=== PATIENT | female | born 1950 | race Caucasian/White ===

== ENCOUNTER → 2017-01-25 | Outpatient (CLI) | payer MEDICARE, OTHER ==
--- NOTE | 2017-01-25 12:00 | MM ---
Reason for exam: follow-up at short interval from prior study. Last mammogram was performed 6 months ago. History: Patient is postmenopausal. Family history of breast cancer in maternal grandmother. Benign MG stereo VAD BX RT of the right breast, June 05, 2014. Benign left mammotome panel of the left breast, September 26, 2009. Benign left mammotome panel of the left breast, April 07, 2007. Benign left mammotome panel of the left breast, April 07, 2007. Benign left mammotome panel of the left breast, April 07, 2007. Benign excisional biopsy of the right breast, 1999. Took estrogen for 5 years beginning at age 35. Physical Findings: Nurse did not find any significant physical abnormalities on exam. MG 3D Diag Mammo W/Cad THALIA Bilateral CC and MLO view(s) were taken. Prior study comparison: July 26, 2016, bilateral MG 3d screening mammo w/cad. July 11, 2015, bilateral MG 3d diag mammo w/cad THALIA. There are scattered fibroglandular densities. Finding: There are increased grouped/clustered calcifications in the upper outer quadrant of the left breast. Previous mammotome biopsy in the right and left breast. Increase in number of calcifications since July 26, 2016 and July 11, 2015. These results were verbally communicated with the patient and result sheet given to the patient on 01/25/17. ASSESSMENT: Suspicious, BI-RAD 4 RECOMMENDATION: Stereotactic core biopsy of the left breast. Called Dr. Morgan with mammographic findings and has scheduled an appointment for the patient for 03/17/17 at 10:[address] Costa. Biopsy scheduled for 01/27/17 at 10:20. PRELIMINARY REPORT CALLED AND FAXED TO DR. COSTA ON 01/25/17 AT 300/TP.
== END | disposition home or self-care (01) ==
LOC: RADMAMWWP 10:05
PROVIDERS: ATTEND Obstetrics & Gynecology
DX: R92.8 Other abnormal and inconclusive findings on diagnostic imaging of breast (principal)
CPT/HCPCS: G0204; G0279

== ENCOUNTER → 2017-01-27 | Day surgery (SDC) | payer MEDICARE, OTHER ==
--- NOTE | 2017-01-27 12:26 | MM ---
EXAMINATION TYPE: MG stereo VAD BX LT DATE OF EXAM: 01/27/2017 COMPARISON: Previous mammogram 01/25/2017. CLINICAL HISTORY: Abnormal mammogram. TECHNIQUE: Stereotactic guided core biopsy of left breast. FINDINGS: The procedure of stereotactic guided core biopsy was explained to the patient. Benefits, alternatives, and risks were discussed. An informed consent was then obtained. The shortness pathway for biopsy was chosen. Shortness pathway was craniocaudad approach. I performed the localization, then surgeon, Dr. Tee performed the remainder of the procedure. A vacuum assisted biopsy gun was used to obtain multiple core samples. The patient tolerated the procedure well without any immediate complication. The patient was kept in the radiology department for short stay after the procedure and then discharged home in stable condition. Targeted calcifications are identified in specimen mammogram. Post biopsy mammogram shows the clip to appear in satisfactory position relative to the targeted area of concern on the preprocedure images. IMPRESSION: SUCCESSFUL, UNCOMPLICATED STEREOTACTIC GUIDED CORE BIOPSY OF AREA OF CONCERN IN THE left BREAST, FULL PATHOLOGY RESULTS TO FOLLOW. 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 Recommendation Follow up mammogram of the left breast in 6 months. CHIKIS
[2017-01-27 15:15] VITALS: BMI 25.7
[2017-01-27 15:24] VITALS: BP 172/99; PULSE 71; RESP 16; TEMP 98.1
== END ==
LOC: RADMAMWWP 09:39
PROVIDERS: ATTEND Surgery
DX: R92.8 Other abnormal and inconclusive findings on diagnostic imaging of breast (principal); N62 Hypertrophy of breast; N60.22 Fibroadenosis of left breast; N60.32 Fibrosclerosis of left breast; N64.89 Other specified disorders of breast
CPT/HCPCS: 88305; 19081; A4648; J2001

== ENCOUNTER → 2017-07-28 | Outpatient (CLI) | payer MEDICARE, OTHER ==
--- NOTE | 2017-07-28 11:22 | MM ---
Reason for exam: follow-up at short interval from prior study. Last mammogram was performed 6 months ago. History: Patient is postmenopausal. Family history of breast cancer in maternal grandmother. Benign MG stereo VAD BX LT of the left breast, January 27, 2017. Benign MG stereo VAD BX RT of the right breast, June 05, 2014. Benign left mammotome panel of the left breast, September 26, 2009. Benign left mammotome panel of the left breast, April 07, 2007. Benign left mammotome panel of the left breast, April 07, 2007. Benign left mammotome panel of the left breast, April 07, 2007. Benign excisional biopsy of the right breast, 1999. Took estrogen for 5 years beginning at age 35. Physical Findings: Nurse did not find any significant physical abnormalities on exam. MG 3D Diag Mammo W/Cad LT CC and MLO view(s) were taken of the left breast. Prior study comparison: January 25, 2017, bilateral MG 3d diag mammo w/cad THALIA. July 26, 2016, bilateral MG 3d screening mammo w/cad. The breast tissue is heterogeneously dense. This may lower the sensitivity of mammography. Stable benign calcifications. Previous mammotome biopsy in the left breast. No significant new findings when compared with previous films. These results were verbally communicated with the patient and result sheet given to the patient on 07/28/17. ASSESSMENT: Benign, BI-RAD 2 RECOMMENDATION: Routine screening mammogram of both breasts in 6 months. Back on schedule for January 2018.
== END | disposition home or self-care (01) ==
LOC: RADMAMWWP 10:37
PROVIDERS: ATTEND Surgery
DX: R92.8 Other abnormal and inconclusive findings on diagnostic imaging of breast (principal)
CPT/HCPCS: G0206; G0279

== ENCOUNTER 2017-08-18 08:21 | Inpatient (IN) | payer MEDICARE, OTHER ==
[2017-08-18] MEDS ORDERED: NITROGLYCERIN OINT 1 INCH/GM PACKET TOPICAL STA (08:45)
[2017-08-18] MEDS ORDERED: ASPIRIN 81 MG PO STA (08:45)
--- NOTE | 2017-08-18 08:49 | ED ---
General Adult HPI - General Chief complaint: Chest Pain Stated complaint: CHEST PAIN Time Seen by Provider: 08/18/17 08:29 Source: patient, family, RN notes reviewed Mode of arrival: wheelchair Limitations: no limitations - History of Present Illness Initial comments: Patient is a pleasant 67-year-old female presenting to the emergency department complaining of chest discomfort. Onset was yesterday. Symptoms have been somewhat steady. Not much improvement with nitroglycerin. has had some improvement with tramadol. Patient has pressure in her chest with radiation to the back of her arms. Patient does have some mild associated dyspnea and nausea and has had some sweating. Patient did have similar symptoms years ago with negative evaluation at that time. Discomfort is only mild at this point. - Related Data Home Medications Medication Instructions Recorded Confirmed Levothyroxine Sodium [Synthroid] 100 mcg PO DAILY 08/18/17 08/18/17 Lisinopril [Zestril] 5 mg PO DAILY 08/18/17 08/18/17 Allergies Allergy/AdvReac Type Severity Reaction Status Date / Time No Known Allergies Allergy Verified 08/18/17 08:40 Review of Systems ROS Statement: Those systems with pertinent positive or pertinent negative responses have been documented in the HPI. ROS Other: All systems not noted in ROS Statement are negative. Constitutional: Denies: fever Eyes: Denies: eye pain ENT: Denies: ear pain Respiratory: Reports: dyspnea Cardiovascular: Reports: chest pain Endocrine: Denies: fatigue Gastrointestinal: Denies: abdominal pain Genitourinary: Denies: dysuria Musculoskeletal: Denies: back pain Skin: Denies: rash Past Medical History Past Medical History: Hypertension, Thyroid Disorder Additional Past Medical History / Comment(s): left breast current yeast infection per pt History of Any Multi-Drug Resistant Organisms: None Reported Past Surgical History: Appendectomy, Hysterectomy, Tonsillectomy Additional Past Surgical History / Comment(s): right stereo benign 2013/left breast stereo benign 2009/2006 Past Anesthesia/Blood Transfusion Reactions: No Reported Reaction Past Psychological History: Depression Smoking Status: Current every day smoker Past Alcohol Use History: Rare Past Drug Use History: None Reported - Past Family History Mother Additional Family Medical History / Comment(s): Depression Father Family Medical History: Coronary Artery Disease (CAD) General Exam Limitations: no limitations General appearance: alert, in no apparent distress Head exam: Present: atraumatic Eye exam: Present: normal appearance, PERRL ENT exam: Present: normal oropharynx Neck exam: Present: normal inspection Respiratory exam: Present: normal lung sounds bilaterally Cardiovascular Exam: Present: regular rate, normal rhythm Expanded Peripheral pulses: 2+: Radial (R), Radial (L), Posterior Tibialis (R), Posterior Tibialis (L) GI/Abdominal exam: Present: soft. Absent: tenderness Extremities exam: Present: normal inspection. Absent: pedal edema, calf tenderness Neurological exam: Present: alert Psychiatric exam: Present: normal affect, normal mood Skin exam: Present: normal color Course Vital Signs 08/18/17 08/18/17 08/18/17 08:33 08:50 09:54 Temperature 97.5 F L 97.6 F Pulse Rate 63 60 Pulse Rate [ 58 L Right Pulse Oximetery] Respiratory 16 16 Rate Blood Pressure 135/76 119/70 O2 Sat by Pulse 97 99 Oximetry - Reevaluation(s) Reevaluation #1: 08/18/17 10:07 Patient was reevaluated and resting comfortably in bed. Discomfort 11/15. Dr. Barrera was paged and is currently in the [facility]. He is made aware. Dr. Nichols has been paged. 08/18/17 10:20 Case was discussed with Dr. Amin, who will admit. EKG Findings - EKG Comments: EKG Findings:: Sinus bradycardia 58. KS 150. QRS 86. QT 440. QTc 431. Normal axis. Inferior Q waves. Biphasic inferior T waves. Medical Decision Making - Lab Data Result diagrams: 08/18/17 08:46 08/18/17 08:46 Lab Results 08/18/17 08/18/17 08/18/17 Range/Units 08:46 08:46 08:46 WBC 6.1 (3.8-10.6) k/uL RBC 4.47 (3.80-5.40) m/uL Hgb 13.5 (11.4-16.0) gm/dL Hct 40.8 (34.0-46.0) % MCV 91.3 (80.0-100.0) fL MCH 30.3 (25.0-35.0) pg MCHC 33.1 (31.0-37.0) g/dL RDW 14.3 (11.5-15.5) % Plt Count 249 (150-450) k/uL Neutrophils % 72 % Lymphocytes % 21 % Monocytes % 6 % Eosinophils % 0 % Basophils % 0 % Neutrophils # 4.4 (1.3-7.7) k/uL Lymphocytes # 1.3 (1.0-4.8) k/uL Monocytes # 0.3 (0-1.0) k/uL Eosinophils # 0.0 (0-0.7) k/uL Basophils # 0.0 (0-0.2) k/uL PT (9.0-12.0) sec INR (<1.2) APTT (22.0-30.0) sec D-Dimer (<0.60) mg/L FEU Sodium 139 (137-145) mmol/L Potassium 4.4 (3.5-5.1) mmol/L Chloride 108 H (98-107) mmol/L Carbon Dioxide 23 (22-30) mmol/L Anion Gap 8 mmol/L BUN 20 H (7-17) mg/dL Creatinine 0.74 (0.52-1.04) mg/dL Est GFR (MDRD) Af Amer >60 (>60 ml/min/1.73 sqM) Est GFR (MDRD) Non-Af >60 (>60 ml/min/1.73 sqM) Glucose 118 H (74-99) mg/dL Calcium 8.9 (8.4-10.2) mg/dL Magnesium 1.9 (1.6-2.3) mg/dL Total Bilirubin 0.6 (0.2-1.3) mg/dL AST 259 H (14-36) U/L ALT 54 H (9-52) U/L Alkaline Phosphatase 92 (38-126) U/L Total Creatine Kinase 2223 H (30-135) U/L CK-MB (CK-2) 201.0 H* (0.0-2.4) ng/mL CK-MB (CK-2) Rel Index Troponin I 28.600 H* (0.000-0.034) ng/mL Total Protein 6.3 (6.3-8.2) g/dL Albumin 3.8 (3.5-5.0) g/dL 08/18/17 Range/Units 08:46 WBC (3.8-10.6) k/uL RBC (3.80-5.40) m/uL Hgb (11.4-16.0) gm/dL Hct (34.0-46.0) % MCV (80.0-100.0) fL MCH (25.0-35.0) pg MCHC (31.0-37.0) g/dL RDW (11.5-15.5) % Plt Count (150-450) k/uL Neutrophils % % Lymphocytes % % Monocytes % % Eosinophils % % Basophils % % Neutrophils # (1.3-7.7) k/uL Lymphocytes # (1.0-4.8) k/uL Monocytes # (0-1.0) k/uL Eosinophils # (0-0.7) k/uL Basophils # (0-0.2) k/uL PT 9.4 (9.0-12.0) sec INR 0.9 (<1.2) APTT 22.8 (22.0-30.0) sec D-Dimer 0.53 (<0.60) mg/L FEU Sodium (137-145) mmol/L Potassium (3.5-5.1) mmol/L Chloride (98-107) mmol/L Carbon Dioxide (22-30) mmol/L Anion Gap mmol/L BUN (7-17) mg/dL Creatinine (0.52-1.04) mg/dL Est GFR (MDRD) Af Amer (>60 ml/min/1.73 sqM) Est GFR (MDRD) Non-Af (>60 ml/min/1.73 sqM) Glucose (74-99) mg/dL Calcium (8.4-10.2) mg/dL Magnesium (1.6-2.3) mg/dL Total Bilirubin (0.2-1.3) mg/dL AST (14-36) U/L ALT (9-52) U/L Alkaline Phosphatase (38-126) U/L Total Creatine Kinase (30-135) U/L CK-MB (CK-2) (0.0-2.4) ng/mL CK-MB (CK-2) Rel Index Troponin I (0.000-0.034) ng/mL Total Protein (6.3-8.2) g/dL Albumin (3.5-5.0) g/dL Critical Care Time Critical Care Time: Yes Total Critical Care Time: 34 Disposition Clinical Impression: NSTEMI (non-ST elevated myocardial infarction) Disposition: ADMITTED IP TO THIS [facility] Condition: Serious Referrals: Gabirel Sarabia Jr, [Primary Care Provider] - 1-2 days Decision Time: 10:08
[2017-08-18 08:58] LABS: Basophils % (A) 0 %; Eosinophils % (A) 0 %; HCT 40.8 % (34.0-46.0); HGB 13.5 gm/dL (11.4-16.0); Lymphocytes # (A) 1.3 k/uL (1.0-4.8); Lymphocytes % (A) 21 %; MCH 30.3 pg (25.0-35.0); MCHC 33.1 g/dL (31.0-37.0); MCV 91.3 fL (80.0-100.0); Mean Platelet Volume 7.8; Monocytes # (A) 0.3 k/uL (0-1.0); Monocytes % (A) 6 %; Neutrophils # (A) 4.4 k/uL (1.3-7.7); Neutrophils % (A) 72 %; Platelet Count 249 k/uL (150-450); RBC 4.47 m/uL (3.80-5.40); RDW 14.3 % (11.5-15.5); WBC 6.1 k/uL (3.8-10.6)
[2017-08-18 09:11] LABS: ALT 54 U/L (9-52); AST 259 U/L (14-36); Albumin 3.8 g/dL (3.5-5.0); Alkaline Phosphatase 92 U/L (38-126); Anion Gap 8 mmol/L; Blood Urea Nitrogen 20 mg/dL (7-17); Calcium 8.9 mg/dL (8.4-10.2); Carbon Dioxide 23 mmol/L (22-30); Chloride 108 mmol/L (98-107); Glucose 118 mg/dL (74-99); Magnesium 1.9 mg/dL (1.6-2.3); Potassium 4.4 mmol/L (3.5-5.1); Sodium 139 mmol/L (137-145); Total Bilirubin 0.6 mg/dL (0.2-1.3); Total Protein 6.3 g/dL (6.3-8.2)
--- NOTE | 2017-08-18 09:11 | XR ---
EXAMINATION TYPE: XR chest 2V DATE OF EXAM: 08/18/2017 COMPARISON: NONE HISTORY: Shortness of breath TECHNIQUE: Frontal and lateral views of the chest are obtained. FINDINGS: Scattered senescent parenchymal changes noted. Hyperinflation compatible with COPD. No evidence for infiltrate. No evidence for atelectasis. Heart size is stable. Mediastinal structures are stable and grossly unremarkable. No evidence for hilar prominence. Degenerative changes dorsal spine. IMPRESSION: 1. No evidence for acute pulmonary disease.
[2017-08-18 09:12] LABS: D-Dimer 0.53 mg/L FEU (<0.60); INR 0.9 (<1.2); Partial Thromboplastin Time 22.8 sec (22.0-30.0); Prothrombin Time 9.4 sec (9.0-12.0)
[2017-08-18 09:40] LABS: Troponin I 28.6 ng/mL (0.000-0.034)
[2017-08-18] MEDS ORDERED: HEPARIN SODIUM,PORCINE 5,000 UNIT/ML 1 ML VIAL IV ONE (09:41)
[2017-08-18] MEDS ORDERED: HEPARIN SODIUM,PORCINE 5,000 UNIT/ML 1 ML VIAL IV PRN (09:41)
[2017-08-18] MEDS ORDERED: HEPARIN SOD,PORK IN 0.45% NACL 25,000 UNIT in 0.45% NACL 1 500ML.BAG IV SCH (09:45)
[2017-08-18] MEDS ORDERED: NITROGLYCERIN SL TABS 0.4 MG TAB SUBLINGUAL PRN ×3 (10:08→13:08)
[2017-08-18 10:57] VITALS: RESP 18
[2017-08-18] MEDS ORDERED: ATORVASTATIN 80 MG TAB PO STA ×2 (11:14→11:25)
[2017-08-18] MEDS ORDERED: ALPRAZolam 0.25 MG TAB PO PRN (11:25)
[2017-08-18] MEDS ORDERED: SODIUM CHLORIDE 0.9% 1,000 ML in EMPTY BAG 1 BAG IV ONE (11:25)
[2017-08-18] MEDS ORDERED: ASPIRIN 325 MG TAB PO STA (11:25)
--- NOTE | 2017-08-18 11:25 | P.CRDCN ---
History of Present Illness Consult date: 08/18/17 Requesting physician: Gabriel Sarabia Jr Consult reason: chest pain Chief complaint: Chest pain/syncope History of present illness: This is a 67-year-old female with history of hypertension, nicotine dependence, she smokes one pack of cigarettes per day, family history of premature coronary artery disease in her father and grandfather. She denies any diabetes, no documented history of hyperlipidemia. Patient presents to the hospital with symptoms of chest discomfort. Apparently yesterday afternoon patient states she was starting an exercise routine when all of a sudden she became extremely warm, the next thing she recalls is waking up leaning against the couch, she states that she did pass out, she is unsure exactly for how long. Patient had symptoms of chest pressure and heaviness, radiating to both arms, positive diaphoresis, positive shortness of breath, no nausea. According to the patient, she took a pain medication, and subsequent to that also took a Motrin. She states that she tried a sublingual nitroglycerin which she was given after a stress test was performed approximately a year ago with no relief of symptoms. Chest discomfort symptoms seem to worsen, patient came to the ER this morning around 8:30. EKG on arrival here shows a normal sinus rhythm with inferior Q waves as well as mild ST elevation. Blood pressure 114/60 with a heart rate in the 50s. White blood cell count 6.1, hemoglobin 13.5, platelet count 249. D-dimer 0.5. Sodium 139, potassium 4.4, BUN 20, creatinine 0.7. CK 2223, MB 201, troponin 28.6. was initiated on IV heparin in the emergency room, and also given aspirin and Nitropaste. At the time of my examination, patient continues to have chest pressure, oxygen is applied and she was given 80 mg of Lipitor. Past Medical History Past Medical History: GERD/Reflux, Hypertension, Syncope, Thyroid Disorder Additional Past Medical History / Comment(s): Pt states she had a syncopal episode yesterday. She states she had a positive stress test about 5 yrs ago and that it was positive-she had chest pain during relieved with a nitrostat- states no further work up done, diverticular dx, hemorrhoids, overactive bladder , hypothyroid, migraines History of Any Multi-Drug Resistant Organisms: None Reported Past Surgical History: Appendectomy, Hysterectomy, Tonsillectomy Additional Past Surgical History / Comment(s): Multiple bilateral breast benign bxs, colonoscopies, thryroid nodule removed. Past Anesthesia/Blood Transfusion Reactions: No Reported Reaction Past Psychological History: Depression Additional Psychological History / Comment(s): Pt states she is on a medication for her depression that works wel for her. She resides with her spouse. She is independent. Smoking Status: Current every day smoker Past Alcohol Use History: Rare Additional Past Alcohol Use History / Comment(s): Pt started smoking in 1965 and is a ppd smoker. Past Drug Use History: None Reported - Past Family History Mother Additional Family Medical History / Comment(s): Depression Father Family Medical History: Coronary Artery Disease (CAD) Medications and Allergies Home Medications Medication Instructions Recorded Confirmed Type Levothyroxine Sodium [Synthroid] 100 mcg PO DAILY 08/18/17 08/18/17 History Lisinopril [Zestril] 5 mg PO DAILY 08/18/17 08/18/17 History Allergies Allergy/AdvReac Type Severity Reaction Status Date / Time No Known Allergies Allergy Verified 08/18/17 08:40 Physical Exam Vitals: Vital Signs Temp Pulse Pulse Resp BP Pulse Ox 08/18/17 10:56 54 L 18 114/60 98 08/18/17 09:54 97.6 F 60 16 119/70 99 08/18/17 08:50 58 L 08/18/17 08:33 97.5 F L 63 16 135/76 97 Intake and Output 08/17/17 08/18/17 08/18/17 22:59 06:59 14:59 Other: Weight 68.946 kg Patient Weight 08/19/17 06:59 Weight 68.946 kg PHYSICAL EXAMINATION: 67-year-old female appears younger than her stated age. HEENT: Head is atraumatic, normocephalic. Pupils equal, round. Neck is supple. There is no elevated jugular venous pressure. HEART EXAMINATION: Heart S1, S2 normal. No murmur or gallop heard. CHEST EXAMINATION:[ Lungs are clear to auscultation and precussion. ABDOMEN: [ Soft, nontender. Bowel sounds are heard. No organomegaly noted]. EXTREMITIES:[ 2+ peripheral pulses with no evidence of peripheral edema and no calf tenderness noted]. NEUROLOGIC [patient is awake, alert and oriented -3.] . Results 08/18/17 08:46 08/18/17 08:46 Cardiac Enzymes 08/18/17 08/18/17 Range/Units 08:46 08:46 AST 259 H (14-36) U/L CK-MB (CK-2) 201.0 H* (0.0-2.4) ng/mL Troponin I 28.600 H* (0.000-0.034) ng/mL Coagulation 08/18/17 Range/Units 08:46 PT 9.4 (9.0-12.0) sec APTT 22.8 (22.0-30.0) sec CBC 08/18/17 Range/Units 08:46 WBC 6.1 (3.8-10.6) k/uL RBC 4.47 (3.80-5.40) m/uL Hgb 13.5 (11.4-16.0) gm/dL Hct 40.8 (34.0-46.0) % Plt Count 249 (150-450) k/uL Comprehensive Metabolic Panel 08/18/17 Range/Units 08:46 Sodium 139 (137-145) mmol/L Potassium 4.4 (3.5-5.1) mmol/L Chloride 108 H (98-107) mmol/L Carbon Dioxide 23 (22-30) mmol/L BUN 20 H (7-17) mg/dL Creatinine 0.74 (0.52-1.04) mg/dL Glucose 118 H (74-99) mg/dL Calcium 8.9 (8.4-10.2) mg/dL AST 259 H (14-36) U/L ALT 54 H (9-52) U/L Alkaline Phosphatase 92 (38-126) U/L Total Protein 6.3 (6.3-8.2) g/dL Albumin 3.8 (3.5-5.0) g/dL Current Medications Generic Name Dose Route Start Last Admin Trade Name Yuryq PRN Reason Stop Dose Admin Aspirin 325 mg 08/19/17 09:00 Aspirin PO DAILY LEXII Heparin Sodium (Porcine) 0 unit 08/18/17 09:41 Heparin IV PER PROTOCOL PRN Low PTT Protocol Heparin Sodium/Sodium Chloride 500 mls @ 16.54 mls/hr 08/18/17 09:45 09:50 25,000 unit/ Sodium Chloride IV 12 units/kg/hr .Q24H LEXII 16.54 mls/hr Protocol Administration 12 UNITS/KG/HR Nitroglycerin 1 inch 08/18/17 12:00 Nitro-Bid Oint TOPICAL Q6HR LEXII Nitroglycerin 0.4 mg 08/18/17 10:08 08/18/17 10:24 Nitrostat SUBLINGUAL 0.4 mg Q5M PRN Administration Chest Pain Sodium Chloride 10 ml 08/18/17 21:00 Saline Flush IV BID LEXII Intake and Output 08/17/17 08/18/17 08/18/17 22:59 06:59 14:59 Other: Weight 68.946 kg Patient Weight 08/19/17 06:59 Weight 68.946 kg 08/18/17 08:46 08/18/17 08:46 EKG Interpretations (text) EKG shows normal sinus rhythm with inferior Q waves mild ST elevation. Assessment and Plan Plan: Assessment and plan #1 non-ST elevation myocardial infarction shows normal sinus rhythm with inferior Q waves and inferior ST-T wave changes initial troponin 28.6 #2 hypertension #3 nicotine dependence #4 family history of premature coronary disease Plan We will give the patient 80 mg of Lipitor now, patient has received an aspirin and is currently on IV heparin. Continue Nitropaste. Stat echocardiogram with Doppler study was requested. Patient has been advised urgently undergo cardiac catheterization, the risks and the benefits were explained to the patient in detail and she is willing to proceed. This will be performed by Dr. Barrera, further recommendations will be based on these findings and the patient's clinical course. DNP note has been reviewed, I agree with a documented findings and plan of care. Patient was seen and examined.
[2017-08-18] MEDS ORDERED: LIDOCAINE 2% INJ 20 MG/ML (20 ML MDV) ONE (11:58)
[2017-08-18] MEDS ORDERED: VERAPAMIL 2.5 MG/ML 2 ML AMP ONE (11:59)
[2017-08-18] MEDS ORDERED: fentaNYL (PF) 50 MCG/ML 2 ML AMP ONE (11:59)
[2017-08-18] MEDS ORDERED: NITROGLYCERIN OINT 1 INCH/GM PACKET TOPICAL SCH (12:00)
[2017-08-18] MEDS ORDERED: fentaNYL (PF) 50 MCG/ML 2 ML AMP IV ONE (12:16)
[2017-08-18] MEDS ORDERED: LIDOCAINE 2% INJ 20 MG/ML SQ ONE (12:18)
[2017-08-18] MEDS ORDERED: VERAPAMIL SYRINGE (5 MG/10 ML) INTRAARTER ONE (12:20)
[2017-08-18] MEDS ORDERED: MIDAZOLAM 2 MG/2 ML VIAL ONE (12:31)
[2017-08-18] MEDS ORDERED: CLOPIDOGREL 75 MG TAB ONE (12:31)
[2017-08-18] MEDS ORDERED: BIVALIRUDIN BOLUS 250 MG/50 ML IV ONE (12:35)
[2017-08-18] MEDS ORDERED: CLOPIDOGREL 75 MG TAB PO ONE (12:35)
[2017-08-18] MEDS ORDERED: SODIUM CHLORIDE 0.9% 1,000 ML IV ONE (12:35)
[2017-08-18] MEDS ORDERED: MIDAZOLAM 2 MG/2 ML VIAL IV ONE (12:36)
[2017-08-18] MEDS ORDERED: BIVALIRUDIN 250 MG in SODIUM CHLORIDE 0.9% 50 ML IV ONE (12:36)
[2017-08-18] MEDS ORDERED: NITROGLYCERIN 1000MCG/10ML SYRINGE INTRACORON ONE (12:43)
[2017-08-18] MEDS ORDERED: IOHEXOL 350 MG/ML 125ML BOTTLE INJ ONE (12:55)
[2017-08-18] MEDS ORDERED: ZOLPIDEM 5 MG TAB PO PRN (13:08)
[2017-08-18] MEDS ORDERED: RX INFO: IV CONTRAST WAS GIVEN 1 EACH MISC MISCELLANE PRN (13:08)
[2017-08-18] MEDS ORDERED: MAG HYDROX/AL HYDROX/SIMETH 30 ML CUP PO PRN (13:08)
[2017-08-18] MEDS ORDERED: ATROPINE SULFATE 0.1 MG/ML 10ML SYRINGE IV PRN (13:08)
[2017-08-18] MEDS ORDERED: SODIUM CHLORIDE 0.9% 1,000 ML IV SCH (13:15)
--- NOTE | 2017-08-18 13:37 | CC ---
CARDIAC CATHETERIZATION REPORT Ms. Wyatt is a 67-year-old female with a history of hypertension, history of chronic tobacco use, who presented with symptoms of chest discomfort. Her discomfort started yesterday and had a syncopal episode that was brief. On presentation to the emergency room, her troponin was 22 and there was evidence of inferior myocardial infarction. She has continued to have some chest discomfort. In view of that, recommendation made regarding cardiac catheterization. The procedures, risks and complication were discussed with the patient who is in full understanding and agreement. PROCEDURE: Patient was brought to the feed mill lab technician in a fasting semi-sedated state after receiving fentanyl and Benadryl and achieving moderate conscious sedated state. Using Xylocaine anesthesia and Seldinger technique, a 6-Lebanese sheath was introduced in the right radial artery. Selective right and left angiography performed using 5-Lebanese 3.5 bend right and left Vicky catheter. Multiple views of the coronary artery including hemiaxial views obtained. Following that, angioplasty and stenting was performed. Following that 5-Lebanese tight pigtail catheter was introduced into the left ventricle and a 30 degree DARLING view of the left ventricle was obtained. Following that, the catheter and sheath were removed. Hemostasis was obtained with deployment of a TR band. There was no immediate complication. The patient is returned to room in stable condition. Of note, the patient received intra-arterial verapamil. FINDINGS: 1. FLUOROSCOPY: There was additional calcification involving the coronary arteries. 2. LEFT MAIN: This is a large-sized vessel bifurcating left circumflex left anterior descending artery left main coronary artery has no evidence of high-grade stenosis. 3. LEFT ANTERIOR DESCENDING ARTERY: This is a large-sized vessel reaching to the apex with a wraparound apex segment giving rise to a large diagonal branch. The anterior descending artery in mid segment has 20% to 30% plaque and the rest of the vessel has no high-grade stenosis. 4. LEFT CIRCUMFLEX: This is a nondominant vessel giving rise to a large obtuse marginal branch. Proximal to the obtuse marginal branch there was a 40-50% plaque. The 2nd obtuse marginal branch totally occluded with retrograde flow. 5. RIGHT CORONARY ARTERY: This vessel is totally occluded in the mid segment with no antegrade flow. 6. COLLATERALS: There is collateral from the left coronary system toward the right PDA. 7. LEFT VENTRICULOGRAM: Left ventriculogram is performed in 30 degree DARLING view and revealed an inferior wall severe hypokinesis to akinesis with ejection fraction of 35% to 40%. There was 2+ mitral regurgitation. 8. HEMODYNAMICS: There was no gradient across the aortic valve. The left ventricular end-diastolic pressure is 20-24 mmHg. CONCLUSION: 1. Totally occluded mid right coronary artery. 2. Chronically occluded second obtuse marginal branch. 3. Mild disease in the left anterior descending and the left circumflex. 4. Moderately severely impaired left ventricular systolic function. RECOMMENDATION: In view of finding anatomy, I recommend proceeding with angioplasty and stenting of the right coronary artery. The procedures as well as risks and complication were discussed with the patient who is in full understanding and agreement. MMODL / IJN: [id number] /
--- NOTE | 2017-08-18 13:43 | PTCA ---
PERCUTANEOUSTRANS CORORONARY ANGIOGRAPHY Ms. Wyatt is a 67-year-old female who presented with symptoms of chest discomfort that started yesterday with evidence consistent with inferior myocardial infarction and troponin elevation. She had persistent symptoms and underwent cardiac catheterization that found a totally occluded mid right coronary artery. In view of that, recommendation regarding angioplasty and stenting. The procedures as well as risks and complication were discussed with the patient who is in full understanding and agreement. PROCEDURE: A 6-Citizen [place] FR4 guiding catheter was introduced into the system. After cannulating the right coronary ostium, a 0.014 balanced medium weight J-wire was advanced across the lesion and positioned distally. Then a 2.5 x 8 mm Trek balloon was advanced and multiple inflations to maximum of 10 atmospheres were done. Following that, the balloon was removed and a 3.0 x 15 mm Xience Alpine stent was deployed postdilated at 14 atmospheres. After the last inflation, after appropriate wait, the balloon and the guidewire were withdrawn back in the guiding catheter. Images were obtained and repeated. Those images reveal stable successful stenting. Following that, the guiding catheter, the balloon and guide were removed and a left ventriculogram was performed using a 5-[place] tight pigtail catheter. Subsequently, catheter and sheath were removed. Hemostasis was obtained with deployment of a TR band. There was no immediate complication. Patient is returned to room in stable condition. Of note, the patient received Angiomax per protocol as well as oral loading dose of clopidogrel. She had resolution of her chest discomfort at end of procedure as well as improvement in her EKG changes. RESULTS: Successful stenting of the mid right coronary artery with reduction of stenosis from 90% to 0%. RECOMMENDATION: The patient will be continued on aspirin, Plavix, beta lisa, and simvastatin. The importance of dual antiplatelet treatment were discussed with the patient and she has full understanding and agreement. Duration of procedures is 45 minutes. MMODL / IJN: [id number] /
--- NOTE | 2017-08-18 13:46 | LTR ---
August 18, [address] Sarabia: I had the pleasure of performing cardiac catheterization on Ms. Wyatt at [facility] on August 18 and full copy of procedure note will be forwarded to you. In brief, she was found to have a totally occluded mid right coronary artery and underwent successful stenting of that vessel using a drug-eluting stent. I am hopeful that this procedure was stabilized status. Thank you again for allowing me to participate in her care. Please feel free to call for any questions. Sincerely, MMCONNORL / IJN: [id number] /
[2017-08-18 14:24] VITALS: BMI 27.8
[2017-08-18] MEDS: SPIRONOLACTONE 25 MG TAB PO SCH (14:26)
[2017-08-18] MEDS ORDERED: HYDROmorphone 2 MG/ML 1 ML SYRINGE ONE (14:36)
[2017-08-18] MEDS ORDERED: HYDROmorphone 1 MG/ML 1 ML SYRINGE IVP PRN (14:38)
[2017-08-18] MEDS ORDERED: HYDROmorphone 2 MG/ML 1 ML SYRINGE IVP PRN (14:39)
[2017-08-18] MEDS ORDERED: ONDANSETRON 4 MG/2 ML VIAL ONE (15:21)
[2017-08-18 15:46] LABS: Troponin I 78.7 ng/mL (0.000-0.034)
[2017-08-18] MEDS: PANTOPRAZOLE 40 MG TABLET PO SCH (18:59)
[2017-08-18 19:10] LABS: HCT 37.1 % (34.0-46.0); HGB 12.7 gm/dL (11.4-16.0); MCH 30.8 pg (25.0-35.0); MCHC 34.3 g/dL (31.0-37.0); MCV 89.7 fL (80.0-100.0); Mean Platelet Volume 7.1; Platelet Count 223 k/uL (150-450); RBC 4.13 m/uL (3.80-5.40); RDW 13.2 % (11.5-15.5); WBC 7.4 k/uL (3.8-10.6)
[2017-08-18] MEDS: ONDANSETRON 4 MG/2 ML VIAL IVP PRN (20:57)
[2017-08-18] MEDS: ALPRAZolam 0.5 MG TAB PO PRN (21:04)
[2017-08-18] MEDS: CARVEDILOL 3.125 MG TAB PO SCH (21:04)
[2017-08-18] MEDS: FAMOTIDINE 20 MG TAB PO SCH (21:04)
[2017-08-18] MEDS: ATORVASTATIN 80 MG TAB PO SCH (21:05)
[2017-08-18 21:52] LABS: Troponin I 52.7 ng/mL (0.000-0.034)
[2017-08-19 02:58] LABS: Anion Gap 4 mmol/L; Blood Urea Nitrogen 13 mg/dL (7-17); Calcium 8.5 mg/dL (8.4-10.2); Carbon Dioxide 28 mmol/L (22-30); Chloride 108 mmol/L (98-107); Cholesterol 155 mg/dL (<200); Glucose 87 mg/dL (74-99); HDL Cholesterol 50 mg/dL (40-60); LDL Cholesterol,Calculated 86 mg/dL (0-99); Sodium 140 mmol/L (137-145); Triglycerides 97 mg/dL (<150)
[2017-08-19] MEDS: PANTOPRAZOLE 40 MG TABLET PO SCH (06:18)
[2017-08-19] MEDS: LEVOTHYROXINE 100 MCG TAB PO SCH (06:18)
[2017-08-19] MEDS: CARVEDILOL 3.125 MG TAB PO SCH ×2 (06:19→20:37)
[2017-08-19] MEDS: ASPIRIN 81 MG PO SCH (08:58)
[2017-08-19] MEDS: SPIRONOLACTONE 25 MG TAB PO SCH (08:58)
[2017-08-19] MEDS: FAMOTIDINE 20 MG TAB PO SCH (08:58)
[2017-08-19] MEDS: LISINOPRIL 5 MG TAB PO SCH (08:58)
[2017-08-19] MEDS ORDERED: ASPIRIN 325 MG TAB PO SCH (09:00)
--- NOTE | 2017-08-19 09:18 | PN ---
PROGRESS NOTE Mrs. Wyatt is a 67-year-old female who presented with subacute myocardial infarction. This started the day before presentation with evidence of inferior wall changes. She underwent cardiac catheterization yesterday, was found to have a totally occluded right coronary artery that was successfully angioplastied. She is doing well this morning. She has no chest pain. Her breathing has been stable. She denies any dizziness, palpitation. She denies any nausea. She continues to be on aspirin 81 mg daily, Lipitor 80 mg daily, Coreg 3.125 mg twice a day, Plavix 75 mg daily, lisinopril 5 mg daily and spironolactone 25 mg daily. PHYSICAL EXAMINATION: Blood pressure 114/50 with a heart in the 60s. LUNGS: Clear. HEART: Regular rate and rhythm S1, S2. No S3. No rub. ABDOMEN: Soft, nontender. EXTREMITIES: No edema. Right radial pulse intact. EKG is consistent with the need for myocardial infarction. LAB DATA: Lab data revealed a peak troponin of 78.7. BUN and creatinine 13 and 0.9, potassium of 4.0. IMPRESSION: 1. Status post inferior myocardial infarction and stenting of the right coronary artery. 2. Ischemic cardiomyopathy. 3. Hypertension. 4. History of chronic tobacco use. RECOMMENDATION: Will continue current therapy. Increase her level of activity. Follow her renal function. If she remains stable, I would expect she should be able to be discharged home tomorrow. MMCONNORL / JUAN ANTONION: [id number] /
[2017-08-19] MEDS: ONDANSETRON 4 MG/2 ML VIAL IVP PRN (12:54)
[2017-08-19] MEDS: CLOPIDOGREL 75 MG TAB PO SCH (13:08)
--- NOTE | 2017-08-19 14:24 | P.HPIM ---
History of Present Illness H&P Date: 08/19/17 Chief Complaint: Chest pain 67-year-old female who presented to the emergency room on 08/18/2017 with a chief complaint of chest pain. The patient reports that she was at home and had just started exercising when she became very hot and the next thing she remembers is waking up on the couch and states that she passed out. After that , the patient began experiencing chest pressure and heaviness. She initially thought that she was having heartburn, but her symptoms progressed and she began to have pain radiating down both of her arms. She denied shortness of breath, nausea, or vomiting. She does report that she has had similar symptoms on and off recently but not as severe as this episode. The patient has a history of gastroesophageal reflux disease, hypertension, hypothyroidism, and migraines. In the emergency room an EKG was completed revealing sinus mechanism with inferior Q waves and mild ST elevation. Laboratory studies reveal white count of 6.1, hemoglobin 13.5, INR 0.9, d-dimer 0.53, sodium 139, potassium 4.4, BUN 20, creatinine 0.74, magnesium 1.9, AST 259, ALC 54, total creatinine kinase 2223, CK-MB 201, troponin 28.6. She was admitted to the hospital under the care of Dr. Amin. Consultations were placed to cardiology. She underwent a cardiac catheterization on 08/18/2017 which revealed a totally occluded right coronary artery and she underwent angioplasty with stent placement by Dr. Barrera. The patient was seen and examined at the bedside by Dr. Amin. She states that she is feeling well and she is anticipating discharge home tomorrow. She denies any further episodes of chest pain or pressure. She states she does experience slight nausea after she eats. Denies emesis. Denies shortness of breath. Denies lightheadedness or dizziness. Denies diaphoresis. She has been voiding without difficulty. She states she had a bowel movement this morning. She has been up in the hallway ambulating without difficulty. Her vital signs remain stable. She is afebrile. She is on room air with oxygen saturation greater then 92%. Review of Systems GENERAL: Positive for recent sensation of generalized warmth with diaphoresis prior to admission, which has resolved. Patient denies fever. Denies chills. EYES: Denies blurred vision. Denies vision changes. Denies eye pain. EARS, NOSE, MOUTH, & THROAT: Denies headache. Denies sore throat. Denies ear pain. RESPIRATORY: Denies cough. Denies shortness of breath. Denies sputum production. Denies hemoptysis. CARDIOVASCULAR: Positive for episode of chest pain prior to admission, which has resolved. Currently chest pain or pressure. Denies palpitations. Denies arrhythmias. GASTROINTESTINAL: Positive for slight nausea. Positive for history of GERD. Denies abdominal pain. Denies diarrhea. Denies constipation. Denies vomiting. Denies blood in the stool. GENITOURINARY: Denies urinary frequency. Denies burning. Denies dysuria. Denies cloudy urine. Denies blood in the urine. MUSCULOSKELETAL: Denies myalgias. Denies joint swelling. Denies decreased range of motion beyond patients baseline. INTEGUMENTARY: Denies pruitis. Denies rash. PSYCHIATRIC: Denies suicidal or homicial ideations. ENDOCRINE: Denies weight change. Denies polydipsia. Denies polyuria. HEMATOLOGIC: Denies bleeding disorders. Past Medical History Past Medical History: GERD/Reflux, Hypertension, Syncope, Thyroid Disorder Additional Past Medical History / Comment(s): Pt states she had a syncopal episode yesterday. She states she had a positive stress test about 5 yrs ago and that it was positive-she had chest pain during relieved with a nitrostat- states no further work up done, diverticular dx, hemorrhoids, overactive bladder , hypothyroid, migraines History of Any Multi-Drug Resistant Organisms: None Reported Past Surgical History: Appendectomy, Hysterectomy, Tonsillectomy Additional Past Surgical History / Comment(s): Multiple bilateral breast benign bxs, colonoscopies, thryroid nodule removed. Past Anesthesia/Blood Transfusion Reactions: No Reported Reaction Past Psychological History: Depression Additional Psychological History / Comment(s): Pt states she is on a medication for her depression that works wel for her. She resides with her spouse. She is independent. Smoking Status: Current every day smoker Past Alcohol Use History: Rare Additional Past Alcohol Use History / Comment(s): Pt started smoking in 1965 and is a ppd smoker. Past Drug Use History: None Reported - Past Family History Mother Additional Family Medical History / Comment(s): Depression Father Family Medical History: Coronary Artery Disease (CAD) Medications and Allergies Home Medications Medication Instructions Recorded Confirmed Type Levothyroxine Sodium [Synthroid] 100 mcg PO DAILY 08/18/17 08/18/17 History Lisinopril [Zestril] 5 mg PO DAILY 08/18/17 08/18/17 History Omeprazole Magnesium [Prilosec OTC] 20 mg PO DAILY 08/18/17 08/18/17 History Allergies Allergy/AdvReac Type Severity Reaction Status Date / Time No Known Allergies Allergy Verified 08/18/17 08:40 Physical Exam Vitals: Vital Signs Temp Pulse Pulse Pulse Pulse Resp BP 08/19/17 09:01 76 61 08/19/17 08:00 96.7 F L 60 18 127/73 08/19/17 07:49 08/19/17 06:00 65 114/58 08/19/17 04:00 18 08/19/17 02:00 97.3 F L 61 18 88/54 08/18/17 23:51 97.1 F L 65 18 96/51 08/18/17 20:24 08/18/17 20:00 97 F L 64 18 124/65 08/18/17 17:00 97.5 F L 62 18 112/76 08/18/17 16:00 97.1 F L 62 18 104/61 08/18/17 15:00 97.5 F L 62 18 110/76 08/18/17 14:30 97.6 F 58 L 18 117/62 BP BP Pulse Ox Pulse Ox Pulse Ox 08/19/17 09:01 132/64 130/70 98 96 08/19/17 08:00 98 08/19/17 07:49 95 08/19/17 06:00 08/19/17 04:00 08/19/17 02:00 95 08/18/17 23:51 94 L 08/18/17 20:24 96 08/18/17 20:00 93 L 08/18/17 17:00 98 08/18/17 16:00 98 08/18/17 15:00 98 08/18/17 14:30 98 Intake and Output 08/18/17 08/19/17 08/19/17 22:59 06:59 14:59 Intake Total 1222 0 540 Output Total 800 900 200 Balance 422 -900 340 Intake: Intake, IV Titration 1000 0 Amount Sodium Chloride 0.9% 1, 1000 0 000 ml @ 100 mls/hr IV . Q10H [facility] Rx#:[id number] Oral 222 540 Output: Urine 800 900 200 Other: # Voids 2 1 Weight 71 kg GENERAL: This is a 67-year-old female in no apparent distress at the time of examination. Pleasant and cooperative. HEENT: Head is atraumatic, normocephalic. Pupils are equal, round, and reactive to light. Sclerae anicteric. Conjunctivae are clear. Mucus membranes of the mouth are moist. Neck is supple. RESPIRATORY: Clear to ausculation. No wheezes, rales, or rhonchi. No use of accessory muscles. Patient maintaining oxygen saturation greater than 92% on room air. No chest wall tenderness is noted on palpation or with deep breathing. CARDIOVASCULAR: Regular rate and rhythm. S1 and S2 noted. No systolic or diastolic murmur auscultated. No JVD noted. No S3 or S4 noted. GASTROINTESTINAL: No distention noted. Abdomen soft and round. Normal active bowel sounds auscultated x 4 quadrants. No pain or tenderness noted upon palpation. INTEGUMENTARY: No cyanosis. No jaundice. No rashes noted. No cellulitis noted. EXTREMITIES: 2+ peripheral pulses. No evidence of peripheral edema. No calf tenderness noted. NEUROLOGIC: Cranial nerves II-XII intact. PSYCHIATRIC: Awake, alert, and oriented X 3. Appropriate affect. Intact judgement and insight. Results CBC & Chem 7: 08/18/17 18:52 08/19/17 02:29 Labs: Abnormal Lab Results - Last 24 Hours (Table) 08/18/17 08/18/17 08/19/17 Range/Units 14:49 20:57 02:29 Chloride 108 H (98-107) mmol/L Total Creatine Kinase 2495 H 2240 H (30-135) U/L CK-MB (CK-2) 199.0 H* 150.0 H* (0.0-2.4) ng/mL Troponin I 78.700 H* 52.700 H* (0.000-0.034) ng/mL Thrombosis Risk Factor Assmnt - Choose All That Apply Any of the Below Risk Factors Present?: Yes Each Factor Represents 1 point: Obesity (BMI >25) Other Risk Factors: Yes Each Risk Factor Represents 2 Points: Age 61-74 years Other congenital or acquired thrombophilia - If yes, enter type in comment: No Thrombosis Risk Factor Assessment Total Risk Factor Score: 3 Thrombosis Risk Factor Assessment Level: Moderate Risk Assessment and Plan Plan: ASSESSMENT: Non-ST elevated myocardial infarction, present on admission, s/p cardiac catheterization revealing completely occluded right coronary artery requiring angioplasty and stent placement Essential hypertension Gastroesophageal reflux disease Ischemic cardiomyopathy Nicotine dependence, patient is a current cigarette smoker Family history of premature coronary artery disease Hypothyroidism Depression, unspecified PLAN: -Cardiology on consult. Appreciate recommendations and input -Continue aspirin, Plavix, Coreg, and Aldactone per cardiology -Continue home dose of lisinopril 5 mg daily -Zofran when necessary for nausea -Smoking cessation encouraged -Home meds as appropriate -Monitor labs -GI prophylaxis: Protonix 40 mg by mouth daily -DVT prophylaxis: Encourage ambulation -Monitor vital signs and address as appropriate -Discharge planning: Patient to return home. No home care needs at this time -Further recommendations pending patient's course -Anticipate discharge home tomorrow if patient remains stable Nurse practitioner note has been reviewed by physician. Signing provider agrees with the documented findings, assessment, and plan of care.
[2017-08-19] MEDS ORDERED: HYDROmorphone 0.5 MG/0.5 ML SYRINGE IVP PRN (16:23)
[2017-08-19] MEDS: ATORVASTATIN 80 MG TAB PO SCH (20:37)
[2017-08-20] MEDS: ALPRAZolam 0.5 MG TAB PO PRN (01:33)
[2017-08-20] MEDS: LEVOTHYROXINE 100 MCG TAB PO SCH (06:14)
[2017-08-20] MEDS: CARVEDILOL 3.125 MG TAB PO SCH (06:14)
[2017-08-20] MEDS: PANTOPRAZOLE 40 MG TABLET PO SCH (06:14)
[2017-08-20 06:29] LABS: Anion Gap 7 mmol/L; Blood Urea Nitrogen 19 mg/dL (7-17); Calcium 9.1 mg/dL (8.4-10.2); Carbon Dioxide 28 mmol/L (22-30); Chloride 104 mmol/L (98-107); Glucose 109 mg/dL (74-99); Potassium 4.1 mmol/L (3.5-5.1); Sodium 139 mmol/L (137-145)
[2017-08-20] MEDS: SPIRONOLACTONE 25 MG TAB PO SCH (08:41)
[2017-08-20] MEDS: CLOPIDOGREL 75 MG TAB PO SCH (08:41)
[2017-08-20] MEDS: LISINOPRIL 5 MG TAB PO SCH (08:41)
[2017-08-20] MEDS: ASPIRIN 81 MG PO SCH (08:41)
[2017-08-20] MEDS ORDERED: PNEUMOCOCCAL VACC-PNEUMOVAX 23 25 MCG/0.5 ML VIAL IM ONE (09:00)
[2017-08-20 11:29] VITALS: BP 121/68; PULSE 58; TEMP 97
[2017-08-20 12:16] LABS: Glucose,Whole Blood 109 mg/dL (75-99)
--- NOTE | 2017-08-20 12:54 | PN ---
PROGRESS NOTE Mrs. Wyatt is a 67-year-old female who presented with an inferior wall myocardial infarction and underwent stenting of her right coronary artery. She is doing quite well this morning. Ambulating without difficulty. She is denying any symptoms of chest pain. No dizziness or palpitation. She denies any nausea. She is quite anxious to go home. She continues to be at this time on aspirin once a day, Lipitor 80 mg daily, Coreg 3.125 mg daily, Plavix 75 mg daily, Zestril 5 mg daily and Aldactone 25 mg daily. PHYSICAL EXAMINATION: Blood pressure 121/60 with the heart rate in the 50s. LUNGS: Clear. HEART: Regular rate and rhythm, S1, S2. No S3. No rub. ABDOMEN: Soft, nontender. EXTREMITIES: No edema. LAB DATA: Lab data revealed BUN and creatinine of 19 and 0.9. Her echocardiogram revealed an ejection fraction of 35% with segmental wall motion abnormality. IMPRESSION: 1. Status post inferior myocardial infarction. 2. Chronic tobacco use. 3. Ischemic cardiomyopathy. RECOMMENDATION: The patient should be able to be discharged home today and followed as an outpatient. The importance of smoking cessation was discussed with her. MMODL / IJN: [id number] /
--- NOTE | 2017-08-20 13:11 | P.DS ---
Providers Date of admission: 08/18/17 10:14 Expected date of discharge: 08/20/17 Attending physician: Gabriel Sarabia Consults: 08/18/17 10:11 Consult Physician Urgent Consulting Provider: Kieran Barrera Consult Reason/Comments: nstemi Do you want consulting provider notified?: Yes 08/18/17 13:08 Consult Physician Routine Consulting Provider: [facility] Consult Reason/Comments: Post Interventional patient Do you want consulting provider notified?: Already Contacted Primary care physician: [facility] Course: 67-year-old female who presented to the emergency room on 08/18/2017 with a chief complaint of chest pain. The patient reports that she was at home and had just started exercising when she became very hot and the next thing she remembers is waking up on the couch and states that she passed out. After that , the patient began experiencing chest pressure and heaviness. She initially thought that she was having heartburn, but her symptoms progressed and she began to have pain radiating down both of her arms. She denied shortness of breath, nausea, or vomiting. She does report that she has had similar symptoms on and off recently but not as severe as this episode. The patient has a history of gastroesophageal reflux disease, hypertension, hypothyroidism, and migraines. In the emergency room an EKG was completed revealing sinus mechanism with inferior Q waves and mild ST elevation. Laboratory studies reveal white count of 6.1, hemoglobin 13.5, INR 0.9, d-dimer 0.53, sodium 139, potassium 4.4, BUN 20, creatinine 0.74, magnesium 1.9, AST 259, ALC 54, total creatinine kinase 2223, CK-MB 201, troponin 28.6. She was admitted to the hospital under the care of Dr. Amin. Consultations were placed to cardiology. She underwent a cardiac catheterization on 08/18/2017 which revealed a totally occluded right coronary artery and she underwent angioplasty with stent placement by Dr. Barrera. 08/19/2017: The patient was seen and examined at the bedside. She states that she is feeling well and she is anticipating discharge home tomorrow. She denies any further episodes of chest pain or pressure. She states she does experience slight nausea after she eats. Denies emesis. Denies shortness of breath. Denies lightheadedness or dizziness. Denies diaphoresis. She has been voiding without difficulty. She states she had a bowel movement this morning. She has been up in the hallway ambulating without difficulty. Her vital signs remain stable. She is afebrile. She is on room air with oxygen saturation greater then 92%. August 20 2017: Patient has no complaints and feels well. she's been cleared by cardiology. We will discharge her now. discharge diagnosis acute Non-ST elevated myocardial infarction, present on admission, s/p cardiac catheterization revealing completely occluded right coronary artery requiring angioplasty and stent placement Essential hypertension Gastroesophageal reflux disease Ischemic cardiomyopathy Nicotine dependence, patient is a current cigarette smoker Family history of premature coronary artery disease Hypothyroidism Depression, unspecified Patient Condition at Discharge: Serious Plan - Discharge Summary Discharge Rx Participant: No New Discharge Prescriptions: New Aspirin 81 mg PO DAILY #0 chew Atorvastatin [Lipitor] 80 mg PO HS #90 tab Carvedilol [Coreg] 3.125 mg PO BID-W/MEALS #180 tab Clopidogrel [Plavix] 75 mg PO DAILY #90 tab Nitroglycerin Sl Tabs [Nitrostat] 0.4 mg SUBLINGUAL Q5M PRN #25 tab PRN Reason: Chest Pain Spironolactone [Aldactone] 25 mg PO DAILY #90 tab Continue Lisinopril [Zestril] 5 mg PO DAILY No Action Levothyroxine Sodium [Synthroid] 100 mcg PO DAILY Omeprazole Magnesium [Prilosec OTC] 20 mg PO DAILY Discharge Medication List Levothyroxine Sodium [Synthroid] 100 mcg PO DAILY 08/18/17 [History] Lisinopril [Zestril] 5 mg PO DAILY 08/18/17 [History] Omeprazole Magnesium [Prilosec OTC] 20 mg PO DAILY 08/18/17 [History] Aspirin 81 mg PO DAILY #0 chew 08/20/17 [Rx] Atorvastatin [Lipitor] 80 mg PO HS #90 tab 08/20/17 [Rx] Carvedilol [Coreg] 3.125 mg PO BID-W/MEALS #180 tab 08/20/17 [Rx] Clopidogrel [Plavix] 75 mg PO DAILY #90 tab 08/20/17 [Rx] Nitroglycerin Sl Tabs [Nitrostat] 0.4 mg SUBLINGUAL Q5M PRN #25 tab 08/20/17 [Rx ] Spironolactone [Aldactone] 25 mg PO DAILY #90 tab 08/20/17 [Rx] Follow up Appointment(s)/Referral(s): Kieran Barrera MD [STAFF PHYSICIAN] - 08/31/17 1:30 pm (Office will call you with follow up appointment date and time. ) Gabriel Sarabia Jr, DO [Primary Care Provider] - 08/24/17 9:00 am ( ) Patient Instructions/Handouts: How to Stop Smoking (DC), Heart Healthy Diet (DC ), Coronary Intravascular Stent Placement (DC), After Radial Heart Catheterization (GEN) Discharge Disposition: HOME SELF-CARE
--- NOTE | 2017-08-22 08:46 | ECHOF ---
Referral Reason:chest pain MEASUREMENTS -------- HEIGHT: 157.5 cm WEIGHT: 68.9 kg BP: RVIDd: 3.0 cm (< 3.3) IVSd: 1.4 cm (0.6 - 1.1) LVIDd: 4.5 cm (3.9 - 5.3) LVPWd: 1.1 cm (0.6 - 1.1) IVSs: 1.7 cm LVIDs: 2.7 cm LVPWs: 1.3 cm LAESV Index (A-L): 17.92 ml/m Ao Diam: 2.7 cm (2.0 - 3.7) AV Cusp: 1.8 cm (1.5 - 2.6) LA Diam: 3.1 cm (2.7 - 3.8) MV E Handy: 0.94 m/s MV DecT: 261 ms MV A Handy: 0.70 m/s MV E/A Ratio: 1.35 AR PHT: 557 ms RAP: 5.00 mmHg RVSP: 15.47 mmHg FINDINGS -------- Resting bradycardia (HR<60bpm). This was a technically difficult study with suboptimal views. The left ventricular size is normal. There is mild concentric left ventricular hypertrophy. Overa ll left ventricular systolic function is moderate-severely impaired with, an EF between 30 - 35 %. Basal lateral LV wall motion is hypokinetic. Basal inferior LV wall motion is akinetic. Mid lat eral LV wall motion is akinetic. Mid inferior LV wall motion is akinetic. Apical lateral LV wal l motion is hypokinetic. Apical inferior LV wall motion is hypokinetic. The right ventricle is normal in size and function. Normal LA size by volume 22+/-6 ml/m2. The right atrium is normal in size. 1.5mg of Definity was utilized for enhancement of images There is mild aortic valve sclerosis. There is [id number] aortic regurgitation. The aortic pressure half-time by doppler is 557ms. There is no evidence of aortic stenosis. The mitral valve leaflets are mildly thickened. There is trace to mild mitral regurgitation. Trace tricuspid regurgitation present. Right ventricular systolic pressure is normal at < 35 mmHg. There is no evidence of pulmonary hypertension. Trace/mild (physiologic) pulmonic regurgitation. The aortic root size is normal. Normal inferior vena cava with normal inspiratory collapse consistent with estimated right atrial pre ssure of 5 mmHg. The pericardium is normal. There is no pericardial effusion. CONCLUSIONS -------- 1. Resting bradycardia (HR<60bpm). 2. This was a technically difficult study with suboptimal views. 3. The left ventricular size is normal. 4. There is mild concentric left ventricular hypertrophy. 5. Overall left ventricular systolic function is moderate-severely impaired with, an EF between 30 - 35 %. 6. Basal lateral LV wall motion is hypokinetic. 7. Basal inferior LV wall motion is akinetic. 8. Mid lateral LV wall motion is akinetic. 9. Mid inferior LV wall motion is akinetic. 10. Apical lateral LV wall motion is hypokinetic. 11. Apical inferior LV wall motion is hypokinetic. 12. Normal LA size by volume 22+/-6 ml/m2. 13. 1.5mg of Definity was utilized for enhancement of images 14. There is mild aortic valve sclerosis. 15. There is [id number] aortic regurgitation. 16. The aortic pressure half-time by doppler is 557ms. 17. The mitral valve leaflets are mildly thickened. 18. There is trace to mild mitral regurgitation. 19. Trace tricuspid regurgitation present. 20. Right ventricular systolic pressure is normal at < 35 mmHg. 21. There is no evidence of pulmonary hypertension. 22. Trace/mild (physiologic) pulmonic regurgitation. 23. The aortic root size is normal. 24. There is no pericardial effusion. TRANSPORTATION MANAGER: Sean Lomax RDCS
== END 2017-08-20 14:12 | disposition home or self-care (01) | DRG 247 ==
LOC: EC 08:21 → 6SEL 10:14
PROVIDERS: ADMIT Family Medicine; ATTEND Family Medicine
DX: I21.4 Non-ST elevation (NSTEMI) myocardial infarction (principal); I25.82 Chronic total occlusion of coronary artery; E03.9 Hypothyroidism, unspecified; F17.210 Nicotine dependence, cigarettes, uncomplicated; F32.9 Major depressive disorder, single episode, unspecified; I10 Essential (primary) hypertension; I25.10 Atherosclerotic heart disease of native coronary artery without angina pectoris; I25.5 Ischemic cardiomyopathy; K21.9 Gastro-esophageal reflux disease without esophagitis; Z79.02 Long term (current) use of antithrombotics/antiplatelets; Z79.82 Long term (current) use of aspirin; Z79.899 Other long term (current) drug therapy; Z81.8 Family history of other mental and behavioral disorders; Z82.49 Family history of ischemic heart disease and other diseases of the circulatory system; Z90.710 Acquired absence of both cervix and uterus; Z79.890 Hormone replacement therapy; Z71.6 Tobacco abuse counseling
CPT/HCPCS: 36415; 71046; 80048; 80053; 80061; 82550; 82553; 83735; 84484; 85025; 85027; 85379; 85610; 85730; 90732; 93005; 93306; 93458; 94760; 96365; 96376; 99291

== ENCOUNTER 2017-08-22 11:55 | Inpatient (IN) | payer MEDICARE, OTHER ==
[2017-08-22] MEDS ORDERED: ASPIRIN 81 MG PO STA (12:24)
[2017-08-22] MEDS ORDERED: NITROGLYCERIN OINT 1 INCH/GM PACKET TOPICAL STA (12:24)
--- NOTE | 2017-08-22 12:29 | ED ---
General Adult HPI - General Chief complaint: Chest Pain Stated complaint: CHEST PAIN Time Seen by Provider: 08/22/17 12:00 Source: patient, RN notes reviewed Mode of arrival: ambulatory Limitations: no limitations - History of Present Illness Initial comments: This is a 67-year-old female presents emergency Department complaining of symptoms similar to her heart attack a week ago. Patient states she had one stent placed one week ago. Patient states today couple hours prior to arrival she started having a left arm and left upper back pain which are symptoms similar to her symptoms a week ago. Patient states she also had diarrhea today and she had that last week as well. Patient denies any chest pain. Patient denies any syncope. Patient denies any recent fever chills or cough. Patient denies abdominal pain patient denies nausea vomiting diarrhea. Patient denies diaphoresis. Patient denies lightheadedness dizziness or near syncopal episode. - Related Data Home Medications Medication Instructions Recorded Confirmed Levothyroxine Sodium [Synthroid] 100 mcg PO DAILY 08/18/17 08/22/17 Lisinopril [Zestril] 5 mg PO DAILY 08/18/17 08/22/17 Omeprazole Magnesium [Prilosec OTC] 20 mg PO DAILY 08/18/17 08/22/17 Previous Rx's Medication Instructions Recorded Aspirin 81 mg PO DAILY #0 chew 08/20/17 Atorvastatin [Lipitor] 80 mg PO HS #90 tab 08/20/17 Carvedilol [Coreg] 3.125 mg PO BID-W/MEALS #180 tab 08/20/17 Clopidogrel [Plavix] 75 mg PO DAILY #90 tab 08/20/17 Nitroglycerin Sl Tabs [Nitrostat] 0.4 mg SUBLINGUAL Q5M PRN #25 tab 08/20/17 Spironolactone [Aldactone] 25 mg PO DAILY #90 tab 08/20/17 Allergies Allergy/AdvReac Type Severity Reaction Status Date / Time No Known Allergies Allergy Verified 08/22/17 13:04 Review of Systems ROS Statement: Those systems with pertinent positive or pertinent negative responses have been documented in the HPI. ROS Other: All systems not noted in ROS Statement are negative. Past Medical History Past Medical History: Coronary Artery Disease (CAD), GERD/Reflux, Hypertension, Myocardial Infarction ([place]), Syncope, Thyroid Disorder Additional Past Medical History / Comment(s): Pt states she had a syncopal episode yesterday. She states she had a positive stress test about 5 yrs ago and that it was positive-she had chest pain during relieved with a nitrostat- states no further work up done, diverticular dx, hemorrhoids, overactive bladder , hypothyroid, migraines History of Any Multi-Drug Resistant Organisms: None Reported Past Surgical History: Appendectomy, Heart Catheterization With Stent, Hysterectomy, Tonsillectomy Additional Past Surgical History / Comment(s): Multiple bilateral breast benign bxs, colonoscopies, thryroid nodule removed. Past Anesthesia/Blood Transfusion Reactions: No Reported Reaction Past Psychological History: Depression Smoking Status: Current every day smoker Past Alcohol Use History: Rare Past Drug Use History: None Reported - Past Family History Mother Additional Family Medical History / Comment(s): Depression Father Family Medical History: Coronary Artery Disease (CAD) General Exam - General Exam Comments Initial Comments: GENERAL: Patient is well-developed and well-nourished. Patient is nontoxic and well- hydrated and is in mild distress. ENT: Neck is soft and supple. No significant lymphadenopathy is noted. Oropharynx is clear. Moist mucous membranes. Neck has full range of motion without eliciting any pain. EYES: The sclera were anicteric and conjunctiva were pink and moist. Extraocular movements were intact and pupils were equal round and reactive to light. Eyelids were unremarkable. PULMONARY: Unlabored respirations. Good breath sounds bilaterally. No audible rales rhonchi or wheezing was noted. CARDIOVASCULAR: There is a regular rate and rhythm without any murmurs gallops or rubs. ABDOMEN: Soft and nontender with normal bowel sounds. No palpable organomegaly was noted. There is no palpable pulsatile mass. SKIN: Skin is clear with no lesions or rashes and otherwise unremarkable. NEUROLOGIC: Patient is alert and oriented x3. Cranial nerves II through XII are grossly intact. Motor and sensory are also intact. Normal speech, volume and content. Symmetrical smile. MUSCULOSKELETAL: Normal extremities with adequate strength and full range of motion. No lower extremity swelling or edema. No calf tenderness. LYMPHATICS: No significant lymphadenopathy is noted PSYCHIATRIC: Normal psychiatric evaluation. Normal interpersonal interactions appears functionally intact in deals appropriately with others. No signs of depression. No signs of anxiety. Limitations: no limitations Course Vital Signs 01/15/18 01/15/18 12:01 13:15 Temperature 98.3 F Pulse Rate 72 60 Respiratory 20 16 Rate Blood Pressure 133/87 145/73 O2 Sat by Pulse 98 99 Oximetry Medical Decision Making - Medical Decision Making EKG shows normal sinus rhythm at 66 bpm MO interval is 142 QRS is 82 QT interval 388 QTC is 405. Patient's EKG shows some asked E depression in 1 and [address] segment depression in V4 V5. I compared to an old EKG these symptoms seem more prominent today than on the previous EKG. Chest x-ray shows no acute abnormality. I started the patient heparin because of her significant symptoms and the fact her troponin was 8. This may be a troponin that is coming down but I will have the patient admitted and repeat troponins to determine the direction of the troponin. I spoke with Dr. Barrera he agreed that the patient should be admitted. I spoke with Dr. Nichols I admitted the patient I wrote admitting orders I consult cardiology. I continued heparin and aspirin and Nitropaste on the floor. - Lab Data Result diagrams: 08/22/17 12:40 08/22/17 12:40 Lab Results 08/22/17 08/22/17 08/22/17 Range/Units 12:40 12:40 12:40 WBC 7.6 (3.8-10.6) k/uL RBC 4.66 (3.80-5.40) m/uL Hgb 13.8 (11.4-16.0) gm/dL Hct 44.0 (34.0-46.0) % MCV 94.5 (80.0-100.0) fL MCH 29.5 (25.0-35.0) pg MCHC 31.2 (31.0-37.0) g/dL RDW 14.4 (11.5-15.5) % Plt Count 262 (150-450) k/uL Neutrophils % 71 % Lymphocytes % 20 % Monocytes % 6 % Eosinophils % 0 % Basophils % 1 % Neutrophils # 5.4 (1.3-7.7) k/uL Lymphocytes # 1.5 (1.0-4.8) k/uL Monocytes # 0.5 (0-1.0) k/uL Eosinophils # 0.0 (0-0.7) k/uL Basophils # 0.1 (0-0.2) k/uL PT (9.0-12.0) sec INR (<1.2) APTT (22.0-30.0) sec Sodium 138 (137-145) mmol/L Potassium 5.1 (3.5-5.1) mmol/L Chloride 104 (98-107) mmol/L Carbon Dioxide 26 (22-30) mmol/L Anion Gap 8 mmol/L BUN 21 H (7-17) mg/dL Creatinine 0.84 (0.52-1.04) mg/dL Est GFR (MDRD) Af Amer >60 (>60 ml/min/1.73 sqM) Est GFR (MDRD) Non-Af >60 (>60 ml/min/1.73 sqM) Glucose 88 (74-99) mg/dL Calcium 8.9 (8.4-10.2) mg/dL Magnesium 1.7 (1.6-2.3) mg/dL Total Bilirubin 0.9 (0.2-1.3) mg/dL AST 50 H (14-36) U/L ALT 41 (9-52) U/L Alkaline Phosphatase 83 (38-126) U/L Total Creatine Kinase 140 H (30-135) U/L CK-MB (CK-2) 2.5 H* (0.0-2.4) ng/mL CK-MB (CK-2) Rel Index 1.8 Troponin I 8.600 H* (0.000-0.034) ng/mL Total Protein 6.6 (6.3-8.2) g/dL Albumin 4.0 (3.5-5.0) g/dL 08/22/17 Range/Units 12:40 WBC (3.8-10.6) k/uL RBC (3.80-5.40) m/uL Hgb (11.4-16.0) gm/dL Hct (34.0-46.0) % MCV (80.0-100.0) fL MCH (25.0-35.0) pg MCHC (31.0-37.0) g/dL RDW (11.5-15.5) % Plt Count (150-450) k/uL Neutrophils % % Lymphocytes % % Monocytes % % Eosinophils % % Basophils % % Neutrophils # (1.3-7.7) k/uL Lymphocytes # (1.0-4.8) k/uL Monocytes # (0-1.0) k/uL Eosinophils # (0-0.7) k/uL Basophils # (0-0.2) k/uL PT 9.4 (9.0-12.0) sec INR 0.9 (<1.2) APTT 23.0 (22.0-30.0) sec Sodium (137-145) mmol/L Potassium (3.5-5.1) mmol/L Chloride (98-107) mmol/L Carbon Dioxide (22-30) mmol/L Anion Gap mmol/L BUN (7-17) mg/dL Creatinine (0.52-1.04) mg/dL Est GFR (MDRD) Af Amer (>60 ml/min/1.73 sqM) Est GFR (MDRD) Non-Af (>60 ml/min/1.73 sqM) Glucose (74-99) mg/dL Calcium (8.4-10.2) mg/dL Magnesium (1.6-2.3) mg/dL Total Bilirubin (0.2-1.3) mg/dL AST (14-36) U/L ALT (9-52) U/L Alkaline Phosphatase (38-126) U/L Total Creatine Kinase (30-135) U/L CK-MB (CK-2) (0.0-2.4) ng/mL CK-MB (CK-2) Rel Index Troponin I (0.000-0.034) ng/mL Total Protein (6.3-8.2) g/dL Albumin (3.5-5.0) g/dL Critical Care Time Critical Care Time: Yes Total Critical Care Time: 35 Disposition Clinical Impression: Unstable angina pectoris Disposition: ADMITTED IP TO THIS HOSP Referrals: Gabriel Sarabia Jr, DO [Primary Care Provider] - 1-2 days Time of Disposition: 14:10
[2017-08-22 12:57] LABS: Basophils # (A) 0.1 k/uL (0-0.2); Basophils % (A) 1 %; Eosinophils % (A) 0 %; HGB 13.8 gm/dL (11.4-16.0); Lymphocytes # (A) 1.5 k/uL (1.0-4.8); Lymphocytes % (A) 20 %; MCH 29.5 pg (25.0-35.0); MCHC 31.2 g/dL (31.0-37.0); MCV 94.5 fL (80.0-100.0); Mean Platelet Volume 7.8; Monocytes # (A) 0.5 k/uL (0-1.0); Monocytes % (A) 6 %; Neutrophils # (A) 5.4 k/uL (1.3-7.7); Neutrophils % (A) 71 %; Platelet Count 262 k/uL (150-450); RBC 4.66 m/uL (3.80-5.40); RDW 14.4 % (11.5-15.5); WBC 7.6 k/uL (3.8-10.6)
[2017-08-22 13:02] LABS: INR 0.9 (<1.2); Prothrombin Time 9.4 sec (9.0-12.0)
[2017-08-22 13:03] LABS: ALT 41 U/L (9-52); AST 50 U/L (14-36); Alkaline Phosphatase 83 U/L (38-126); Anion Gap 8 mmol/L; Blood Urea Nitrogen 21 mg/dL (7-17); Calcium 8.9 mg/dL (8.4-10.2); Carbon Dioxide 26 mmol/L (22-30); Chloride 104 mmol/L (98-107); Glucose 88 mg/dL (74-99); Magnesium 1.7 mg/dL (1.6-2.3); Potassium 5.1 mmol/L (3.5-5.1); Sodium 138 mmol/L (137-145); Total Bilirubin 0.9 mg/dL (0.2-1.3); Total Protein 6.6 g/dL (6.3-8.2)
[2017-08-22 13:41] LABS: Creatine Kinase MB 2.5 ng/mL (0.0-2.4)
[2017-08-22 13:42] LABS: Troponin I 8.6 ng/mL (0.000-0.034)
[2017-08-22] MEDS ORDERED: HEPARIN SODIUM,PORCINE 5,000 UNIT/ML 1 ML VIAL IV ONE (13:57)
--- NOTE | 2017-08-22 13:58 | XR ---
EXAMINATION TYPE: XR chest 2V DATE OF EXAM: 08/22/2017 COMPARISON: 08/18/2017 TECHNIQUE: PA and lateral views submitted. HISTORY: Chest pain FINDINGS: The lungs are clear and there is no pneumothorax, pleural effusion, or focal pneumonia. Mild hypert rophic change of the spine. IMPRESSION: 1. No acute process.
[2017-08-22] MEDS ORDERED: HEPARIN SOD,PORK IN 0.45% NACL 25,000 UNIT in 0.45% NACL 1 500ML.BAG IV SCH (14:00)
[2017-08-22] MEDS ORDERED: NITROGLYCERIN SL TABS 0.4 MG TAB SUBLINGUAL PRN (14:10)
--- NOTE | 2017-08-22 15:48 | P.CRDCN ---
History of Present Illness Consult date: 08/22/17 Requesting physician: Gabriel Sarabia Jr Consult reason: chest pain Chief complaint: Right arm, shoulder, and scapular discomfort History of present illness: 'mildred is a pleasant 67-year-old female with history of hypertension, nicotine dependence, family history of premature coronary artery disease, who recently presented to the hospital with an acute inferior wall myocardial infarction, she underwent angioplasty and stenting of the right coronary artery. This was performed on the of this month. She was discharged home in stable condition, states that she developed a discomfort in her right upper arm, right shoulder, and right scapular area. After approximately 2 hours of persistent discomfort she did try to take a nitroglycerin, which did not give her any relief of symptoms. She denies any discomfort across her chest, she denies any diaphoresis or shortness of breath. Chest x-ray on admission did not reveal any acute process. EKG on admission showed a normal sinus rhythm with mild ST changes in aVR, ST-T wave changes also noted in the lateral leads. White blood cell count 7.6, hemoglobin 13.8, platelet count 262. Sodium 138, potassium 5.1, BUN 21, creatinine 0.8. Magnesium level I.7, troponin 8.6. Patient's troponin on the 11 of this month was 52. He did have an echocardiogram with Doppler study performed on this most recent admission, which revealed an ejection fraction of 30-35% basal lateral hypokinetic, inferior, mid lateral, mid inferior akinetic, apical lateral, and apical inferior hypokinesia. At the time of my examination, patient had mild discomfort in her after right arm, states that the pain in the scapular area has dissipated. Patient was resumed on an aspirin as well as Nitropaste and heparin. We'll also resume the patient's Aldactone, lisinopril, Plavix, Coreg. We will repeat the echocardiogram with Doppler study, we will also obtain 2 subsequent troponins. Past Medical History Past Medical History: Coronary Artery Disease (CAD), GERD/Reflux, Hypertension, Myocardial Infarction ([place]), Syncope, Thyroid Disorder Additional Past Medical History / Comment(s): Pt states she had a syncopal episode yesterday. She states she had a positive stress test about 5 yrs ago and that it was positive-she had chest pain during relieved with a nitrostat- states no further work up done, diverticular dx, hemorrhoids, overactive bladder , hypothyroid, migraines History of Any Multi-Drug Resistant Organisms: None Reported Past Surgical History: Appendectomy, Heart Catheterization With Stent, Hysterectomy, Tonsillectomy Additional Past Surgical History / Comment(s): Multiple bilateral breast benign bxs, colonoscopies, thryroid nodule removed. Past Anesthesia/Blood Transfusion Reactions: No Reported Reaction Past Psychological History: Depression Smoking Status: Current every day smoker Past Alcohol Use History: Rare Past Drug Use History: None Reported - Past Family History Mother Additional Family Medical History / Comment(s): Depression Father Family Medical History: Coronary Artery Disease (CAD) Medications and Allergies Home Medications Medication Instructions Recorded Confirmed Type Levothyroxine Sodium [Synthroid] 100 mcg PO DAILY 08/18/17 08/22/17 History Lisinopril [Zestril] 5 mg PO DAILY 08/18/17 08/22/17 History Omeprazole Magnesium [Prilosec OTC] 20 mg PO DAILY 08/18/17 08/22/17 History Aspirin 81 mg PO DAILY #0 chew 08/20/17 08/22/17 Rx Atorvastatin [Lipitor] 80 mg PO HS #90 tab 08/20/17 08/22/17 Rx Carvedilol [Coreg] 3.125 mg PO BID-W/MEALS #180 tab 08/20/17 08/22/17 Rx Clopidogrel [Plavix] 75 mg PO DAILY #90 tab 08/20/17 08/22/17 Rx Nitroglycerin Sl Tabs [Nitrostat] 0.4 mg SUBLINGUAL Q5M PRN #25 tab 08/20/17 Rx Spironolactone [Aldactone] 25 mg PO DAILY #90 tab 08/20/17 08/22/17 Rx Allergies Allergy/AdvReac Type Severity Reaction Status Date / Time No Known Allergies Allergy Verified 08/22/17 13:04 Physical Exam Vitals: Vital Signs Temp Pulse Resp BP Pulse Ox 08/22/17 13:15 60 16 145/73 99 08/22/17 12:01 98.3 F 72 20 133/87 98 Intake and Output 08/22/17 08/22/17 08/22/17 06:59 14:59 22:59 Other: Weight 68.039 kg Patient Weight 08/23/17 06:59 Weight 68.039 kg PHYSICAL EXAMINATION: HEENT: Head is atraumatic, normocephalic. Pupils equal, round. Neck is supple. There is no elevated jugular venous pressure. HEART EXAMINATION: Heart S1, S2 normal. No murmur or gallop heard. CHEST EXAMINATION: Lungs are clear to auscultation and precussion. No chest wall tenderness is noted on palpation or with deep breathing. ABDOMEN: Soft, nontender. Bowel sounds are heard. No organomegaly noted. EXTREMITIES: 2+ peripheral pulses with no evidence of peripheral edema and no calf tenderness noted. NEUROLOGIC patient is awake, alert and oriented -3. . Results 08/22/17 12:40 08/22/17 12:40 Cardiac Enzymes 08/22/17 08/22/17 Range/Units 12:40 12:40 AST 50 H (14-36) U/L CK-MB (CK-2) 2.5 H* (0.0-2.4) ng/mL Troponin I 8.600 H* (0.000-0.034) ng/mL Coagulation 08/22/17 Range/Units 12:40 PT 9.4 (9.0-12.0) sec APTT 23.0 (22.0-30.0) sec CBC 08/22/17 Range/Units 12:40 WBC 7.6 (3.8-10.6) k/uL RBC 4.66 (3.80-5.40) m/uL Hgb 13.8 (11.4-16.0) gm/dL Hct 44.0 (34.0-46.0) % Plt Count 262 (150-450) k/uL Comprehensive Metabolic Panel 08/22/17 Range/Units 12:40 Sodium 138 (137-145) mmol/L Potassium 5.1 (3.5-5.1) mmol/L Chloride 104 (98-107) mmol/L Carbon Dioxide 26 (22-30) mmol/L BUN 21 H (7-17) mg/dL Creatinine 0.84 (0.52-1.04) mg/dL Glucose 88 (74-99) mg/dL Calcium 8.9 (8.4-10.2) mg/dL AST 50 H (14-36) U/L ALT 41 (9-52) U/L Alkaline Phosphatase 83 (38-126) U/L Total Protein 6.6 (6.3-8.2) g/dL Albumin 4.0 (3.5-5.0) g/dL Current Medications Generic Name Dose Route Start Last Admin Trade Name Gale PRN Reason Stop Dose Admin Aspirin 325 mg 08/23/17 09:00 Aspirin PO DAILY LEXII Heparin Sodium/Sodium Chloride 500 mls @ 16.32 mls/hr 08/22/17 14:00 15:18 25,000 unit/ Sodium Chloride IV 12 units/kg/hr .Q24H LEXII 16.32 mls/hr Protocol Administration 12 UNITS/KG/HR Nitroglycerin 0.4 mg 08/22/17 14:10 Nitrostat SUBLINGUAL Q5M PRN Chest Pain Intake and Output 08/22/17 08/22/17 08/22/17 06:59 14:59 22:59 Other: Weight 68.039 kg Patient Weight 08/23/17 06:59 Weight 68.039 kg 08/22/17 12:40 08/22/17 12:40 EKG Interpretations (text) EKG shows normal sinus rhythm with mild ST-T wave changes in aVR as well as lateral ST-T wave changes. Assessment and Plan Plan: Assessment and plan #1 symptoms of right arm, shoulder, and scapular discomfort in a patient with recent acute inferior wall myocardial infarction. EKG shows normal sinus rhythm with mild ST-T changes in aVR as well as the lateral leads. Initial troponin 8.6, which is down from 52 earlier this week. #2 inferior wall myocardial infarction with RCA stenting less than one week ago. Patient was also found to have a chronically occluded second obtuse marginal branch. Mild disease in the LAD and left circumflex. #3 ischemic cardiomyopathy with an ejection fraction of 35-40%, mitral regurgitation #4 hypertension #5 hyperlipidemia #6 nicotine dependence #7 family history of premature coronary artery disease #8 Hypothyroidism Plan We will request a repeat echocardiogram with Doppler study. We will obtain 2 subsequent troponins. We will also resume the patient's Plavix, Lipitor, Coreg , Zestril, and Aldactone. Based on the results of the troponins and patient's clinical course further recommendations will be made. DNP note has been reviewed, I agree with a documented findings and plan of care. Patient was seen and examined.
[2017-08-22] MEDS: CLOPIDOGREL 75 MG TAB PO SCH (16:27)
[2017-08-22] MEDS: LISINOPRIL 5 MG TAB PO SCH (16:27)
[2017-08-22] MEDS: CARVEDILOL 3.125 MG TAB PO SCH (16:27)
[2017-08-22] MEDS ORDERED: HYDROmorphone 0.5 MG/0.5 ML SYRINGE IVP STA (16:42)
[2017-08-22 19:35] LABS: Creatine Kinase MB 2.3 ng/mL (0.0-2.4)
[2017-08-22 19:37] LABS: Troponin I 10.5 ng/mL (0.000-0.034)
[2017-08-22] MEDS: FAMOTIDINE 20 MG TAB PO SCH (20:55)
[2017-08-22] MEDS ORDERED: ATORVASTATIN 80 MG TAB PO SCH (21:00)
[2017-08-22] MEDS ORDERED: ACETAMINOPHEN TAB 325 MG TAB PO PRN (21:05)
[2017-08-23 02:24] LABS: Creatine Kinase MB 1.9 ng/mL (0.0-2.4)
[2017-08-23 02:31] LABS: Troponin I 7.83 ng/mL (0.000-0.034)
[2017-08-23] MEDS: CARVEDILOL 3.125 MG TAB PO SCH (05:55)
[2017-08-23] MEDS ORDERED: LEVOTHYROXINE 100 MCG TAB PO SCH (06:30)
[2017-08-23 06:54] LABS: Cholesterol 102 mg/dL (<200); HDL Cholesterol 47 mg/dL (40-60); LDL Cholesterol,Calculated 42 mg/dL (0-99); Triglycerides 66 mg/dL (<150)
[2017-08-23 07:54] VITALS: BP 122/73; PULSE 66; RESP 16; TEMP 97.6
[2017-08-23] MEDS: FAMOTIDINE 20 MG TAB PO SCH (07:55)
[2017-08-23] MEDS: LISINOPRIL 5 MG TAB PO SCH (07:55)
[2017-08-23] MEDS: CLOPIDOGREL 75 MG TAB PO SCH (07:55)
--- NOTE | 2017-08-23 08:09 | PN ---
PROGRESS NOTE Mrs. Wyatt is a 67-year-old female who presented last with acute inferior myocardial infarction underwent stenting of the right coronary artery. At that time, had chest discomfort while at home and doing her hair. She has right-sided arm discomfort and shoulder discomfort, worse with certain position. Because of that, she came into the emergency room. She took nitroglycerin without any relief. On presentation to the emergency room her troponins were elevated. She is feeling well this morning. She had no symptoms of to remind her of the way she felt at that time for myocardial infarction. Her breathing has been stable. She denies any dizziness or palpitation. She has been ambulating today without much difficulty. MEDICATION: Includes: Aspirin once a day, Lipitor 80 mg daily, Coreg 3.125 mg twice a day, Plavix 75 mg daily, lisinopril 5 mg daily, and spironolactone 25 mg daily. PHYSICAL EXAMINATION: Blood pressure 104/60 with a heart rate in the 70s. LUNGS: Clear. Regular rate and rhythm S1, S2. No S3. No rub. ABDOMEN: Soft, nontender. EXTREMITIES: No edema. LAB DATA: Lab data revealed troponin of 8.6, 10.5, 7.8. EKG revealed evidence of inferior myocardial infarction with no acute ST-segment changes. IMPRESSION: 1. Right shoulder and arm discomfort, atypical for ischemic heart disease, appears to be musculoskeletal in etiology. The patient is reproduced in certain position. 2. Status post recent stenting of the right coronary artery. 3. Elevated troponin related to the recent myocardial infarction. 4. Prior history of smoking. RECOMMENDATIONS: From the cardiac standpoint, I will stop her heparin, increase her level of activity. If she remains stable, she should be able to be discharged home today and followed as planned. MMODL / IJN: [id number] /
[2017-08-23] MEDS ORDERED: SPIRONOLACTONE 25 MG TAB PO SCH (09:00)
[2017-08-23] MEDS ORDERED: ASPIRIN 81 MG PO SCH (09:00)
[2017-08-23] MEDS ORDERED: ASPIRIN 325 MG TAB PO SCH (09:00)
--- NOTE | 2017-08-23 09:54 | ECHOF ---
Referral Reason:CP MEASUREMENTS -------- HEIGHT: 160.0 cm WEIGHT: 68.0 kg BP: IVSd: 1.4 cm (0.6 - 1.1) LVIDd: 3.3 cm (3.9 - 5.3) LVPWd: 1.2 cm (0.6 - 1.1) IVSs: 1.9 cm LVIDs: 2.0 cm LVPWs: 1.7 cm FINDINGS -------- Sinus rhythm. Limited Study The left ventricular size is normal. There is mild concentric left ventricular hypertrophy. Overa ll left ventricular systolic function is mild-moderately impaired with, an EF between 40 - 45 %. In ferior Hypokinesis Mid to basal inferiorlateral is hypokinetic CONCLUSIONS -------- 1. Sinus rhythm. 2. Limited Study 3. The left ventricular size is normal. 4. There is mild concentric left ventricular hypertrophy. 5. Overall left ventricular systolic function is mild-moderately impaired with, an EF between 40 - 45 %. 6. Inferior Hypokinesis 7. Mid to basal inferiorlateral is hypokinetic ANIMAL SCIENCE PROFESSOR: Izzy Valenzuela RDCS
--- NOTE | 2017-08-23 10:01 | P.DS ---
Providers Date of admission: 08/22/17 14:10 Expected date of discharge: 08/23/17 Attending physician: Gabriel Sarabia Consults: 08/22/17 14:10 Consult Physician Urgent Consulting Provider: [facility] Consult Reason/Comments: Unstable angina Do you want consulting provider notified?: Yes Primary care physician: [facility] Course: This document serves as H&P and Discharge Summary 67-year-old female who presented to the emergency room on 08/22/2017 with a chief complaint of pain in her right arm, right shoulder, and scapular region. The patient had a recent hospital visit from August 18 until August 20 and underwent cardiac catheterization revealing totally occluded RCA and underwent stent placement. She also has a history of hypertension, GERD, ischemic cardiomyopathy, hypothyroidism, and depression. She is a current cigarette smoker. In the emergency room a chest x-ray was completed which was negative for an acute process. EKG revealed sinus rhythm with mild ST changes and aVR, and ST T -wave changes in lateral leads. She was placed on a heparin drip and admitted to the hospital under the care of Dr. Sarabia. Consultations were placed to cardiology. Troponins were elevated at 8.6, 10.5, and 7.830 which is down from the patients previous troponins which were in the 70s. The patient was evaluated by cardiology and found to be likely also skeletal in nature and not from a cardiac origin. She was cleared for discharge from their standpoint. The patient was deemed stable for Dr. Sarabia. She is to follow up on an outpatient basis with Dr. Sarabia and also cardiology. Discharge diagnosis Right arm, shoulder, and scapular pain, present on admission, likely musculoskeletal in etiology per cardiology Elevated troponins, trending downward, likely related to recent myocardial infarction Coronary artery disease with recent stent placement to the RCA Essential Hypertension Gastroesophageal reflux disease Nicotine dependence, patient is a current cigarette smoker Nurse practitioner note has been reviewed by physician. Signing provider agrees with the documented findings, assessment, and plan of care. Patient Condition at Discharge: Stable Plan - Discharge Summary Discharge Rx Participant: No New Discharge Prescriptions: Continue Levothyroxine Sodium [Synthroid] 100 mcg PO DAILY Lisinopril [Zestril] 5 mg PO DAILY Omeprazole Magnesium [Prilosec OTC] 20 mg PO DAILY Aspirin 81 mg PO DAILY #0 chew Atorvastatin [Lipitor] 80 mg PO HS #90 tab Carvedilol [Coreg] 3.125 mg PO BID-W/MEALS #180 tab Clopidogrel [Plavix] 75 mg PO DAILY #90 tab Nitroglycerin Sl Tabs [Nitrostat] 0.4 mg SUBLINGUAL Q5M PRN #25 tab PRN Reason: Chest Pain Spironolactone [Aldactone] 25 mg PO DAILY #90 tab Discharge Medication List Levothyroxine Sodium [Synthroid] 100 mcg PO DAILY 08/18/17 [History] Lisinopril [Zestril] 5 mg PO DAILY 08/18/17 [History] Omeprazole Magnesium [Prilosec OTC] 20 mg PO DAILY 08/18/17 [History] Aspirin 81 mg PO DAILY #0 chew 08/20/17 [Rx] Atorvastatin [Lipitor] 80 mg PO HS #90 tab 08/20/17 [Rx] Carvedilol [Coreg] 3.125 mg PO BID-W/MEALS #180 tab 08/20/17 [Rx] Clopidogrel [Plavix] 75 mg PO DAILY #90 tab 08/20/17 [Rx] Nitroglycerin Sl Tabs [Nitrostat] 0.4 mg SUBLINGUAL Q5M PRN #25 tab 08/20/17 [Rx ] Spironolactone [Aldactone] 25 mg PO DAILY #90 tab 08/20/17 [Rx] Follow up Appointment(s)/Referral(s): Kieran Barrera MD [STAFF PHYSICIAN] - 1 Week Gabriel Sarabia Jr, DO [Primary Care Provider] - 1-2 days Discharge Disposition: HOME SELF-CARE
[2017-08-23 10:17] VITALS: BMI 27.4
== END 2017-08-23 11:00 | disposition home or self-care (01) | DRG 555 ==
LOC: EC 11:55 → 6SEL 14:10
PROVIDERS: ADMIT Family Medicine; ATTEND Family Medicine
DX: M25.511 Pain in right shoulder (principal); I21.19 ST elevation (STEMI) myocardial infarction involving other coronary artery of inferior wall; R55 Syncope and collapse; E03.9 Hypothyroidism, unspecified; K21.9 Gastro-esophageal reflux disease without esophagitis; E78.5 Hyperlipidemia, unspecified; I10 Essential (primary) hypertension; I25.5 Ischemic cardiomyopathy; I25.10 Atherosclerotic heart disease of native coronary artery without angina pectoris; I34.0 Nonrheumatic mitral (valve) insufficiency; N32.81 Overactive bladder; K57.90 Diverticulosis of intestine, part unspecified, without perforation or abscess without bleeding; F17.210 Nicotine dependence, cigarettes, uncomplicated; Z79.82 Long term (current) use of aspirin; Z79.02 Long term (current) use of antithrombotics/antiplatelets; Z79.899 Other long term (current) drug therapy; Z86.59 Personal history of other mental and behavioral disorders; Z95.5 Presence of coronary angioplasty implant and graft; Z90.710 Acquired absence of both cervix and uterus; Z82.49 Family history of ischemic heart disease and other diseases of the circulatory system
CPT/HCPCS: 36415; 71046; 80053; 80061; 82550; 82553; 83735; 84484; 85025; 85610; 85730; 93005; 93308; 96365; 96366; 96375; 96376; 99291

== ENCOUNTER → 2017-09-01 | Outpatient (CLI) | payer MEDICARE, OTHER ==
[2017-09-01 08:08] LABS: ALT 36 U/L (9-52); AST 25 U/L (14-36); Albumin 4.7 g/dL (3.5-5.0); Alkaline Phosphatase 93 U/L (38-126); Anion Gap 12 mmol/L; Blood Urea Nitrogen 19 mg/dL (7-17); Carbon Dioxide 29 mmol/L (22-30); Chloride 99 mmol/L (98-107); Cholesterol 108 mg/dL (<200); Glucose 109 mg/dL (74-99); HDL Cholesterol 51 mg/dL (40-60); LDL Cholesterol,Calculated 42 mg/dL (0-99); Potassium 5.1 mmol/L (3.5-5.1); Sodium 140 mmol/L (137-145); Total Bilirubin 0.7 mg/dL (0.2-1.3); Total Protein 7.5 g/dL (6.3-8.2); Triglycerides 73 mg/dL (<150)
== END | disposition home or self-care (01) ==
LOC: LABWHC1 07:02
PROVIDERS: ATTEND Internal Medicine Interventional Cardiology
DX: E78.2 Mixed hyperlipidemia (principal)
CPT/HCPCS: 36415; 80053; 80061

== ENCOUNTER → 2018-02-21 | Outpatient (CLI) | payer MEDICARE, OTHER ==
--- NOTE | 2018-02-22 13:42 | MM ---
Reason for exam: screening (asymptomatic). Last mammogram was performed 7 months ago. History: Patient is postmenopausal. Family history of breast cancer in maternal grandmother. Benign MG stereo VAD BX LT of the left breast, January 27, 2017. Benign MG stereo VAD BX RT of the right breast, June 05, 2014. Benign left mammotome panel of the left breast, September 26, 2009. Benign left mammotome panel of the left breast, April 07, 2007. Benign left mammotome panel of the left breast, April 07, 2007. Benign left mammotome panel of the left breast, April 07, 2007. Benign excisional biopsy of the right breast, 1999. Took estrogen for 5 years beginning at age 35. Physical Findings: A clinical breast exam by your physician is recommended on an annual basis and results should be correlated with mammographic findings. MG 3D Screening Mammo W/Cad Bilateral CC and MLO view(s) were taken. Prior study comparison: July 28, 2017, left breast MG 3d diag mammo w/cad LT. January 25, 2017, bilateral MG 3d diag mammo w/cad THALIA. The breast tissue is heterogeneously dense. This may lower the sensitivity of mammography. Finding #1: Stable architectural distortion in the subareolar position of the left breast. Finding #2: There are typically benign dystrophic, round calcifications in both breasts. Previous mammotome biopsy in the right and left breast x 4. There is no discrete abnormality. ASSESSMENT: Benign, BI-RAD 2 RECOMMENDATION: Routine screening mammogram of both breasts in 1 year.
== END | disposition home or self-care (01) ==
LOC: RADMAMWWP 10:42
PROVIDERS: ATTEND Obstetrics & Gynecology
DX: Z12.31 Encounter for screening mammogram for malignant neoplasm of breast (principal); Z80.3 Family history of malignant neoplasm of breast
CPT/HCPCS: 77063; 77067

== ENCOUNTER 2018-05-18 11:28 | Observation (INO) | payer MEDICARE, OTHER ==
[2018-05-18 12:15] LABS: Basophils # (A) 0.1 k/uL (0-0.2); Basophils % (A) 1 %; Eosinophils # (A) 0.1 k/uL (0-0.7); Eosinophils % (A) 2 %; HCT 40.6 % (34.0-46.0); HGB 13.3 gm/dL (11.4-16.0); Lymphocytes # (A) 1.6 k/uL (1.0-4.8); Lymphocytes % (A) 28 %; MCH 29.6 pg (25.0-35.0); MCHC 32.9 g/dL (31.0-37.0); MCV 90.2 fL (80.0-100.0); Monocytes # (A) 0.3 k/uL (0-1.0); Monocytes % (A) 5 %; Neutrophils # (A) 3.4 k/uL (1.3-7.7); Neutrophils % (A) 61 %; Platelet Count 305 k/uL (150-450); RDW 13.3 % (11.5-15.5); WBC 5.6 k/uL (3.8-10.6)
--- NOTE | 2018-05-18 12:19 | ED ---
General Adult HPI - General Chief complaint: Chest Pain Stated complaint: Chest pain Time Seen by Provider: 05/18/18 11:43 Source: patient, RN notes reviewed, old records reviewed Mode of arrival: ambulatory Limitations: no limitations - History of Present Illness Initial comments: 68-year-old female presenting for evaluation of chest pain. Patient has history of CAD, she had OK with stenting in August of this year. She was a former smoker. She is not currently smoking. Over the past 24 hours she developed initially upper back and bilateral shoulder pain which is typical of her previous OK. She developed some central chest tightness as well and mild dyspnea. No cough, no fever, no lower extremity pain or swelling. No abdominal pain, she has had some nausea no vomiting. No diaphoresis. She has been compliant with her medications. She is on aspirin and Plavix, no anticoagulation. - Related Data Home Medications Medication Instructions Recorded Confirmed Levothyroxine Sodium [Synthroid] 100 mcg PO DAILY 08/18/17 05/18/18 Lisinopril [Zestril] 5 mg PO DAILY 08/18/17 05/18/18 Omeprazole Magnesium [PriLOSEC OTC] 20 mg PO DAILY 08/18/17 05/18/18 Previous Rx's Medication Instructions Recorded Aspirin 81 mg PO DAILY #0 chew 08/20/17 Atorvastatin [Lipitor] 80 mg PO HS #90 tab 08/20/17 Carvedilol [Coreg] 3.125 mg PO BID-W/MEALS #180 tab 08/20/17 Clopidogrel [Plavix] 75 mg PO DAILY #90 tab 08/20/17 Nitroglycerin Sl Tabs [Nitrostat] 0.4 mg SUBLINGUAL Q5M PRN #25 tab 08/20/17 Spironolactone [Aldactone] 25 mg PO DAILY #90 tab 08/20/17 Allergies Allergy/AdvReac Type Severity Reaction Status Date / Time No Known Allergies Allergy Verified 05/18/18 13:08 Review of Systems ROS Statement: Those systems with pertinent positive or pertinent negative responses have been documented in the HPI. ROS Other: All systems not noted in ROS Statement are negative. Past Medical History Past Medical History: Coronary Artery Disease (CAD), GERD/Reflux, Hypertension, Myocardial Infarction (OK), Syncope, Thyroid Disorder Additional Past Medical History / Comment(s): Pt states she had a syncopal episode yesterday. She states she had a positive stress test about 5 yrs ago and that it was positive-she had chest pain during relieved with a nitrostat- states no further work up done, diverticular dx, hemorrhoids, overactive bladder , hypothyroid, migraines Last Myocardial Infarction Date:: 08-18-17 History of Any Multi-Drug Resistant Organisms: None Reported Past Surgical History: Appendectomy, Heart Catheterization With Stent, Hysterectomy, Tonsillectomy Additional Past Surgical History / Comment(s): Multiple bilateral breast benign bxs, colonoscopies, thryroid nodule removed. Past Anesthesia/Blood Transfusion Reactions: No Reported Reaction Date of Last Stent Placement:: 08-18-17 Past Psychological History: Depression Smoking Status: Former smoker Past Alcohol Use History: Rare Past Drug Use History: None Reported - Past Family History Mother Additional Family Medical History / Comment(s): Depression Father Family Medical History: Coronary Artery Disease (CAD) General Exam Limitations: no limitations General appearance: alert, in no apparent distress Head exam: Present: atraumatic, normocephalic Eye exam: Present: normal appearance, PERRL, EOMI ENT exam: Present: normal exam Neck exam: Present: normal inspection. Absent: tenderness, meningismus Respiratory exam: Present: normal lung sounds bilaterally. Absent: respiratory distress, wheezes Cardiovascular Exam: Present: regular rate, normal rhythm GI/Abdominal exam: Present: soft. Absent: distended, tenderness Extremities exam: Present: normal inspection, normal capillary refill. Absent: pedal edema Neurological exam: Present: alert, oriented X3 Psychiatric exam: Present: normal affect, normal mood Skin exam: Present: warm, dry, intact. Absent: cyanosis, diaphoretic Course Vital Signs 05/18/18 05/18/18 05/18/18 11:30 12:30 14:00 Temperature 98.2 F Pulse Rate 66 63 55 L Respiratory 18 20 20 Rate Blood Pressure 173/87 144/71 144/78 O2 Sat by Pulse 98 97 96 Oximetry EKG Findings - EKG Comments: EKG Findings:: EKG: Normal sinus rhythm, Q wave and T wave inversion in lead 3 and aVF, this is unchanged from previous EKG August 2017. Rate of 63, NV interval 140, QRS duration 84, QTC 45, no ST segment elevation. Medical Decision Making - Medical Decision Making 68-year-old female history of CAD presenting with some central chest tightness and upper shoulder and back pain. Patient describes her symptoms as similar in character although less severe than the OK she had in August of this year. She is on 2 antiplatelet therapy, has been taking her medications as prescribed. EKG is unchanged from prior. Chest x-ray negative for any acute cardio pulmonary disease, CBC, CMP are unremarkable, troponin is negative, BNP is 148 which is normal. Given the patient's risk factors, she will be kept in observation for serial cardiac enzymes and cardiology evaluation. Case discussed with Dr. Sarabia, who will accept admission - Lab Data Result diagrams: 05/18/18 11:55 05/18/18 11:55 Lab Results 05/18/18 05/18/18 05/18/18 Range/Units 11:55 11:55 11:55 WBC 5.6 (3.8-10.6) k/uL RBC 4.50 (3.80-5.40) m/uL Hgb 13.3 (11.4-16.0) gm/dL Hct 40.6 (34.0-46.0) % MCV 90.2 (80.0-100.0) fL MCH 29.6 (25.0-35.0) pg MCHC 32.9 (31.0-37.0) g/dL RDW 13.3 (11.5-15.5) % Plt Count 305 (150-450) k/uL Neutrophils % 61 % Lymphocytes % 28 % Monocytes % 5 % Eosinophils % 2 % Basophils % 1 % Neutrophils # 3.4 (1.3-7.7) k/uL Lymphocytes # 1.6 (1.0-4.8) k/uL Monocytes # 0.3 (0-1.0) k/uL Eosinophils # 0.1 (0-0.7) k/uL Basophils # 0.1 (0-0.2) k/uL PT (9.0-12.0) sec INR (<1.2) APTT (22.0-30.0) sec Sodium 142 (137-145) mmol/L Potassium 4.8 (3.5-5.1) mmol/L Chloride 108 H (98-107) mmol/L Carbon Dioxide 22 (22-30) mmol/L Anion Gap 12 mmol/L BUN 19 H (7-17) mg/dL Creatinine 0.91 (0.52-1.04) mg/dL Est GFR (CKD-EPI)AfAm 74 (>60 ml/min/1.73 sqM) Est GFR (CKD-EPI)NonAf 64 (>60 ml/min/1.73 sqM) Glucose 97 (74-99) mg/dL Calcium 9.4 (8.4-10.2) mg/dL Magnesium 2.0 (1.6-2.3) mg/dL Total Bilirubin 1.0 (0.2-1.3) mg/dL AST 27 (14-36) U/L ALT 35 (9-52) U/L Alkaline Phosphatase 128 H (38-126) U/L Total Creatine Kinase 52 (30-135) U/L CK-MB (CK-2) 1.2 (0.0-2.4) ng/mL CK-MB (CK-2) Rel Index 2.3 Troponin I <0.012 (0.000-0.034) ng/mL NT-Pro-B Natriuret Pep pg/mL Total Protein 7.2 (6.3-8.2) g/dL Albumin 4.4 (3.5-5.0) g/dL 05/18/18 05/18/18 Range/Units 11:55 11:55 WBC (3.8-10.6) k/uL RBC (3.80-5.40) m/uL Hgb (11.4-16.0) gm/dL Hct (34.0-46.0) % MCV (80.0-100.0) fL MCH (25.0-35.0) pg MCHC (31.0-37.0) g/dL RDW (11.5-15.5) % Plt Count (150-450) k/uL Neutrophils % % Lymphocytes % % Monocytes % % Eosinophils % % Basophils % % Neutrophils # (1.3-7.7) k/uL Lymphocytes # (1.0-4.8) k/uL Monocytes # (0-1.0) k/uL Eosinophils # (0-0.7) k/uL Basophils # (0-0.2) k/uL PT 9.5 (9.0-12.0) sec INR 1.0 (<1.2) APTT 23.4 (22.0-30.0) sec Sodium (137-145) mmol/L Potassium (3.5-5.1) mmol/L Chloride (98-107) mmol/L Carbon Dioxide (22-30) mmol/L Anion Gap mmol/L BUN (7-17) mg/dL Creatinine (0.52-1.04) mg/dL Est GFR (CKD-EPI)AfAm (>60 ml/min/1.73 sqM) Est GFR (CKD-EPI)NonAf (>60 ml/min/1.73 sqM) Glucose (74-99) mg/dL Calcium (8.4-10.2) mg/dL Magnesium (1.6-2.3) mg/dL Total Bilirubin (0.2-1.3) mg/dL AST (14-36) U/L ALT (9-52) U/L Alkaline Phosphatase (38-126) U/L Total Creatine Kinase (30-135) U/L CK-MB (CK-2) (0.0-2.4) ng/mL CK-MB (CK-2) Rel Index Troponin I (0.000-0.034) ng/mL NT-Pro-B Natriuret Pep 148 pg/mL Total Protein (6.3-8.2) g/dL Albumin (3.5-5.0) g/dL Disposition Clinical Impression: Chest pain Disposition: ADMITTED IP TO THIS [facility] Condition: Stable Is patient prescribed a controlled substance at d/c from ED?: No Referrals: Gabriel Sarabia Jr, DO [Primary Care Provider] - 1-2 days Decision to Admit Reason: Admit from EC Decision Date: 05/18/18 Decision Time: 14:54
[2018-05-18 12:25] LABS: Partial Thromboplastin Time 23.4 sec (22.0-30.0); Prothrombin Time 9.5 sec (9.0-12.0)
[2018-05-18 12:29] LABS: Albumin 4.4 g/dL (3.5-5.0); Calcium 9.4 mg/dL (8.4-10.2); Potassium 4.8 mmol/L (3.5-5.1); Total Protein 7.2 g/dL (6.3-8.2)
--- NOTE | 2018-05-18 12:32 | XR ---
EXAMINATION TYPE: XR chest 2V DATE OF EXAM: 05/18/2018 COMPARISON: Prior chest x-ray 08/22/2017 HISTORY: Chest pain TECHNIQUE: Frontal and lateral views of the chest are obtained. FINDINGS: There is no focal air space opacity, pleural effusion, or pneumothorax seen. The cardiac silhouette size is within normal limits. The osseous structures are intact. There are overlying car diac leads. Patient is rotated. Deformity of the proximal left humerus is chronic may be due to old t rauma. Hyperinflation may be due to underlying COPD. IMPRESSION: No acute cardiopulmonary process.
[2018-05-18 12:47] LABS: Creatine Kinase 52 U/L (30-135)
[2018-05-18 13:00] LABS: Creatine Kinase MB 1.2 ng/mL (0.0-2.4); Troponin I <0.012 ng/mL (0.000-0.034)
[2018-05-18] MEDS ORDERED: ASPIRIN 325 MG TAB PO STA (14:47)
[2018-05-18] MEDS ORDERED: NALOXONE 0.4 MG/ML 1 ML VIAL IV PRN (14:47)
[2018-05-18] MEDS ORDERED: NITROGLYCERIN SL TABS 0.4 MG TAB SUBLINGUAL PRN (14:50)
[2018-05-18] MEDS: CARVEDILOL 3.125 MG TAB PO SCH (17:42)
[2018-05-18 18:23] LABS: Creatine Kinase 48 U/L (30-135)
[2018-05-18 18:33] LABS: Creatine Kinase MB 1.2 ng/mL (0.0-2.4); Troponin I <0.012 ng/mL (0.000-0.034)
[2018-05-18] MEDS ORDERED: ACETAMINOPHEN TAB 325 MG TAB PO PRN (20:13)
[2018-05-18] MEDS ORDERED: ATORVASTATIN 80 MG TAB PO SCH (21:00)
[2018-05-18] MEDS ORDERED: MELATONIN 3 MG TABLET PO PRN (23:38)
[2018-05-19 00:40] LABS: Creatine Kinase 49 U/L (30-135)
[2018-05-19 00:51] LABS: Creatine Kinase MB 1.3 ng/mL (0.0-2.4); Troponin I <0.012 ng/mL (0.000-0.034)
[2018-05-19] MEDS ORDERED: LEVOTHYROXINE 100 MCG TAB PO SCH (06:30)
[2018-05-19 07:37] VITALS: RESP 18
[2018-05-19] MEDS ORDERED: CAFFEINE CITRATE 60 MG/3 ML VIAL IV PRN (08:10)
[2018-05-19] MEDS ORDERED: REGADENOSON 0.4 MG/5 ML SYRINGE IV ONE (08:10)
[2018-05-19] MEDS ORDERED: SPIRONOLACTONE 25 MG TAB PO SCH (09:00)
[2018-05-19] MEDS ORDERED: CLOPIDOGREL 75 MG TAB PO SCH (09:00)
[2018-05-19] MEDS ORDERED: LISINOPRIL 5 MG TAB PO SCH (09:00)
--- NOTE | 2018-05-19 11:13 | NM ---
EXAMINATION TYPE: NM stress lexiscan cardiolite DATE OF EXAM: 05/19/2018 COMPARISON: 11/13/2015 HISTORY: Chest pain TECHNIQUE: After the intravenous administration of 10.23 mCi Tc 99m Sestamibi - Cardiolite resting S PECT images acquired 45 minutes post injection. The patient received 0.4mg Lexiscan, 26.3 mCi Tc 99m Sestamibi - Stress images obtained [address] injection FINDINGS: Review of stress and rest SPECT images demonstrates no distinct perfusion abnormality. Gated analysi s shows normal wall motion with an estimated left ventricular ejection fraction of 66 %. IMPRESSION: No scintigraphic evidence for reversible ischemia.
[2018-05-19 11:35] VITALS: BP 138/74; PULSE 62; TEMP 98.1
[2018-05-19] MEDS: CARVEDILOL 3.125 MG TAB PO SCH (11:51)
--- NOTE | 2018-05-19 13:45 | EST ---
EXERCISE STRESS DATE OF SERVICE: 05/19/2018 AGE: 68 SEX: Female HT: 65 WT: 160 pounds PROTOCOL: Lexiscan Cardiolite STAGE: DURATION OF EXERCISE: HEART RATE REST: 58 BLOOD PRESSURE REST: 160/70 MAXIMUM HEART RATE ACHIEVED: 103 MAXIMUM BLOOD PRESSURE: 160/80 85% MPHR: 128 100% MPHR: 150 METS: INDICATIONS: Chest pain. CLINICAL INFORMATION: Baseline EKG revealed normal sinus rhythm with inferolateral ST-T abnormality which is probably nonspecific or related to hypertrophy. With Lexiscan administration, heart rate changed from 58 to 103 beats per minute and blood pressure changed from 160/70 to 147/73. EKG remained inconclusive and patient had transient chest pressure and headache. By EKG criteria, this is an inconclusive Lexiscan stress test because of resting EKG changes. The nuclear scan results which are more pertinent, will be reported by the radiologist. LIZY / MADELAINE: [id number] /
--- NOTE | 2018-05-19 13:57 | CONS ---
CONSULTATION This is a 68-year-old lady with a known history of CAD and inferior SC that she suffered in August of this year, underwent stenting of the RCA with excellent result. She has calcified arteries, but no significant disease in the left system. For the last 2 days, she has been experiencing nondescript pressure in the upper shoulder area and both the back of her arms. These symptoms are very similar to what she experienced when she had her SC. She actually had a syncopal spell when she had the SC. However, she has not had a stress test since then. These symptoms are going on for at least 2 days and yesterday she had another episode which she describes as a discomfort in both her arms, mostly the left arm in the back of her arm, very similar to the previous episode. She came in with these symptoms. Her troponins are normal. EKG is unremarkable. She is resting comfortably without symptoms. Given her presentation and known previous PCI, I am recommending a Lexiscan stress test. Patient does not wish to walk and feels that she has shortness of breath. She used to smoke which she has quit about 2 years ago. PAST MEDICAL HISTORY: 1. Acute inferior SC with RCA PCI in August. 2. Hypertension. 3. Hyperlipidemia.. MEDICATIONS: At home include: 1. Aldactone 25 mg daily. 2. Zestril 5 mg daily. 3. Coreg 3.125 mg b.i.d. 4. Lipitor 80 mg daily. 5. Aspirin 81 mg daily. 6. Plavix 75 mg daily. ALLERGIES: None. REVIEW OF SYSTEMS: Unremarkable other than above-mentioned facts. PHYSICAL EXAMINATION: Blood pressure is 120/70, pulse rate is 68 per minute, regular. HEENT: Unremarkable. Fundus was not examined by me. Neck is supple. No JVD. I do not hear a carotid bruit. There is no thyromegaly. Heart exam reveals S1, S2 heard normally in all areas without a rub, murmur or gallop. Lungs are clear. Abdomen is soft, nontender. Lower extremities reveal normal pulses. No edema. Central nervous system is normal. EKG revealed sinus mechanism with old inferior SC, no acute changes. LABORATORY DATA: Reveals unremarkable troponins. IMPRESSION: 1. Chest pain syndrome cannot exclude angina in a patient with previous inferior myocardial infraction in RCA, PCI. 2. Hypertension. 3. Hyperlipidemia. RECOMMENDATION: I am recommending a Lexiscan stress test for her and if normal, she can be discharged. Discussed my thoughts in detail with the patient. Thank you very much for consult. LIZY / MADELAINE: [id number] /
--- NOTE | 2018-05-19 14:05 | P.DS ---
Providers Date of admission: 05/18/18 14:47 Expected date of discharge: 05/19/18 Attending physician: Gabriel Sarabia Consults: 05/18/18 14:49 Consult Physician Routine Consulting Provider: Amanda Fraser Consult Reason/Comments: Chest pain Do you want consulting provider notified?: Yes Primary care physician: [facility] Course: Document serves as H&P and discharge summary 68-year-old female who presented to the emergency room on 05/18/2018. The patient states she felt like her "heart was pounding out of her chest". She states it did not feel like her heart was racing. She denied chest pain or pressure. Denied shortness of breath. Patient denied any other signs or symptoms. Chest x-ray completed in the emergency room was negative for an acute process. CBC was within normal limits. Potassium 4.8. Sodium 142. BUN 19. Creatinine 0.91. Troponins negative 3. BNP 140. The patient was admitted to the observation unit. Cardiology evaluated the patient this morning. She underwent a stress test which was negative. Patient states her symptoms have resolved and she is requesting to be discharged home. Patient was deemed stable for discharge per Dr. Sarabia. Patient is to resume her previous home medications. She is to follow up on an outpatient basis with her PCP and director of sales. DISCHARGE DIAGNOSIS: Atypical chest discomfort, patient reports feeling like her "heart was pounding out of her chest", troponins negative 3, s/p stress test which was negative for reversible ischemia Coronary artery disease with previous stent placement to the RCA, August 2017 Hypertension Gastroesophageal reflux disease Nicotine dependence, in remission, patient is a former cigarette smoker Nurse practitioner note has been reviewed by physician. Signing provider agrees with the documented findings, assessment, and plan of care. Patient Condition at Discharge: Stable Plan - Discharge Summary Discharge Rx Participant: Yes New Discharge Prescriptions: Continue Levothyroxine Sodium [Synthroid] 100 mcg PO DAILY Lisinopril [Zestril] 5 mg PO DAILY Omeprazole Magnesium [PriLOSEC OTC] 20 mg PO DAILY Aspirin 81 mg PO DAILY #0 chew Atorvastatin [Lipitor] 80 mg PO HS #90 tab Carvedilol [Coreg] 3.125 mg PO BID-W/MEALS #180 tab Clopidogrel [Plavix] 75 mg PO DAILY #90 tab Nitroglycerin Sl Tabs [Nitrostat] 0.4 mg SUBLINGUAL Q5M PRN #25 tab PRN Reason: Chest Pain Spironolactone [Aldactone] 25 mg PO DAILY #90 tab Discharge Medication List Levothyroxine Sodium [Synthroid] 100 mcg PO DAILY 08/18/17 [History] Lisinopril [Zestril] 5 mg PO DAILY 08/18/17 [History] Omeprazole Magnesium [PriLOSEC OTC] 20 mg PO DAILY 08/18/17 [History] Aspirin 81 mg PO DAILY #0 chew 08/20/17 [Rx] Atorvastatin [Lipitor] 80 mg PO HS #90 tab 08/20/17 [Rx] Carvedilol [Coreg] 3.125 mg PO BID-W/MEALS #180 tab 08/20/17 [Rx] Clopidogrel [Plavix] 75 mg PO DAILY #90 tab 08/20/17 [Rx] Nitroglycerin Sl Tabs [Nitrostat] 0.4 mg SUBLINGUAL Q5M PRN #25 tab 08/20/17 [Rx ] Spironolactone [Aldactone] 25 mg PO DAILY #90 tab 08/20/17 [Rx] Follow up Appointment(s)/Referral(s): Kieran Barrera MD [STAFF PHYSICIAN] - 2 Weeks Gabriel Sarabia Jr, DO [Primary Care Provider] - 1 Week
== END 2018-05-19 14:43 | disposition home or self-care (01) ==
LOC: EC 11:28 → 3OBS 14:47
PROVIDERS: ADMIT Family Medicine; ATTEND Family Medicine
DX: R07.89 Other chest pain (principal); R55 Syncope and collapse; R06.00 Dyspnea, unspecified; I25.10 Atherosclerotic heart disease of native coronary artery without angina pectoris; K21.9 Gastro-esophageal reflux disease without esophagitis; I10 Essential (primary) hypertension; M54.6 Pain in thoracic spine; M25.511 Pain in right shoulder; M25.512 Pain in left shoulder; F32.9 Major depressive disorder, single episode, unspecified; N32.81 Overactive bladder; E03.9 Hypothyroidism, unspecified; G43.909 Migraine, unspecified, not intractable, without status migrainosus; E78.5 Hyperlipidemia, unspecified; Z79.82 Long term (current) use of aspirin; Z79.02 Long term (current) use of antithrombotics/antiplatelets; Z79.890 Hormone replacement therapy; Z79.899 Other long term (current) drug therapy; I25.2 Old myocardial infarction; Z87.891 Personal history of nicotine dependence; Z90.710 Acquired absence of both cervix and uterus; Z90.89 Acquired absence of other organs; Z95.5 Presence of coronary angioplasty implant and graft; Z82.49 Family history of ischemic heart disease and other diseases of the circulatory system; Z81.8 Family history of other mental and behavioral disorders
CPT/HCPCS: 99285; 36415; 93005; 93017; 83880; 80053; 82550; 82553; 83735; 84484; 85025; 85610; 85730; 71046; 78452; G0378 ×2; A9500; J2785

== ENCOUNTER → 2018-06-07 | Outpatient (CLI) | payer MEDICARE, OTHER ==
--- NOTE | 2018-06-07 09:01 | US ---
EXAMINATION TYPE: US gallbladder DATE OF EXAM: 06/07/2018 COMPARISON: NONE CLINICAL HISTORY: R10.11 Right Upper Quadrant Pain after meals per patient EXAM MEASUREMENTS: Liver Length: 12.4 cm Gallbladder Wall: 0.1 cm CBD: 0.4 cm Right Kidney: 9.4 x 5.5 x 4.8 cm Pancreas: hyperechoic Liver: fatty liver Gallbladder: wnl Evidence for sonographic Richardson's sign: no CBD: wnl Right Kidney: complex cyst noted parapelvic area =2.1 x 3.8 x 1.6cm IMPRESSION: 1. Hepatic steatosis. 2. Parapelvic right-sided renal cyst.
== END | disposition home or self-care (01) ==
LOC: RADUSWWP 07:08
PROVIDERS: ATTEND Family Medicine
DX: N28.1 Cyst of kidney, acquired (principal); K76.0 Fatty (change of) liver, not elsewhere classified
CPT/HCPCS: 76705

== ENCOUNTER → 2018-12-14 | Outpatient (CLI) | payer MEDICARE, OTHER ==
[2018-12-14 12:34] LABS: Albumin 4.7 g/dL (3.80-4.90); Albumin/Globulin Ratio 2.35 (1.60-3.17); Anion Gap 8.1 mmol/L (4.00-12.00); Calcium 9.2 mg/dL (8.7-10.3); Carbon Dioxide 24.9 mmol/L (21.6-31.8); LDL Cholesterol,Calculated 59.4 mg/dL (0.0-131.0); Potassium 4.8 mmol/L (3.5-5.5); Total Bilirubin 0.7 mg/dL (0.2-1.2); Total Protein 6.7 g/dL (6.2-8.2); VLDL Calculation 13.6 mg/dL (5.00-40.00)
== END | disposition home or self-care (01) ==
LOC: LABWHC1 07:04
PROVIDERS: ATTEND Internal Medicine Interventional Cardiology
DX: E78.2 Mixed hyperlipidemia (principal)
CPT/HCPCS: 36415; 80053; 80061

== ENCOUNTER → 2019-01-02 | Outpatient (CLI) | payer MEDICARE, OTHER ==
--- NOTE | 2019-01-02 12:25 | MR ---
MR kidney and adrenal without and with contrast HISTORY: Benign neoplasm of adrenal gland, R 93.5 Multiplanar multisequence and postcontrast images obtained through the abdomen following 7.5 cc Gadav ist IV. Correlation to CT abdomen 11/13/2015 The nodularity of the left adrenal gland is again noted and shows a stable size compared to prior CT measuring approximately 15 mm. The lesion shows signal drop on out of phase imaging consistent with a denoma. Washout is noted on delayed contrast administration. Some signal dropout in the liver on out of phase imaging suggests hepatic steatosis. Cystic foci are associated with the right kidney, lesions are T2 intense and T1 intermediate signal w ith septations in the right lower pole similar to similar CT findings measuring approximately 4.3 cm in greatest AP dimension by 2.2 cm in transverse dimension, mild prominence of extrarenal pelvis is a lso stable finding compared to prior CT in the right kidney. No enhancement following contrast admini stration within the cysts within the right kidney. The pancreas and gallbladder, spleen are unremarkable there is a hiatal hernia with partial intrathor acic stomach. No evident ascites or peritoneal adenopathy. Aorta shows normal caliber. IMPRESSION: Findings compatible with adrenal adenoma on the left.
== END | disposition home or self-care (01) ==
LOC: RADMRIMAIN 08:28
PROVIDERS: ATTEND Family Medicine
DX: D35.00 Benign neoplasm of unspecified adrenal gland (principal); R93.5 Abnormal findings on diagnostic imaging of other abdominal regions, including retroperitoneum
CPT/HCPCS: 74183; A9585

== ENCOUNTER 2019-04-19 15:43 | Observation (INO) | payer MEDICARE, OTHER ==
[2019-04-19] MEDS ORDERED: NITROGLYCERIN OINT 1 INCH/GM PACKET TOPICAL STA (15:48)
[2019-04-19] MEDS ORDERED: ASPIRIN 81 MG PO STA (15:48)
[2019-04-19 16:08] LABS: Basophils # (A) 0.1 k/uL (0-0.2); Basophils % (A) 2 %; Eosinophils # (A) 0.1 k/uL (0-0.7); Eosinophils % (A) 2 %; HCT 37.7 % (34.0-46.0); HGB 12.3 gm/dL (11.4-16.0); Lymphocytes # (A) 1.4 k/uL (1.0-4.8); Lymphocytes % (A) 22 %; MCH 28.3 pg (25.0-35.0); MCHC 32.7 g/dL (31.0-37.0); MCV 86.6 fL (80.0-100.0); Monocytes # (A) 0.3 k/uL (0-1.0); Monocytes % (A) 5 %; Neutrophils # (A) 4.3 k/uL (1.3-7.7); Neutrophils % (A) 66 %; Platelet Count 244 k/uL (150-450); RBC 4.36 m/uL (3.80-5.40); WBC 6.5 k/uL (3.8-10.6)
--- NOTE | 2019-04-19 16:11 | ED ---
General Adult HPI - General Chief complaint: Chest Pain Stated complaint: A fib Time Seen by Provider: 04/19/19 15:50 Source: patient, EMS, RN notes reviewed Mode of arrival: EMS Limitations: no limitations - History of Present Illness Initial comments: This is a 69-year-old female presents emergency Department with a past medical history significant for GA. Patient states she has been having the same symptoms she had when she had her heart attack. Patient states she has a pressure sensation in her back in to become short of breath per patient states been going on and off for about a month. Patient states usually last a half an hour and then subsides. Patient states that she took 2 nitroglycerin eliciting a took the pain away completely. Patient states today she didn't have any money to questions so the continue to occur she went to see her primary medical care doctor who sent her into the hospital. Patient denies any chest pain but she also states she's never had any chest pain in the past. Patient denies any diaphoretic episodes. Patient denies any nausea. Patient denies any lightheadedness dizziness or near syncopal episode. Patient denies any abdominal pain. - Related Data Home Medications Medication Instructions Recorded Confirmed Levothyroxine Sodium [Synthroid] 100 mcg PO DAILY 08/18/17 04/19/19 Lisinopril [Zestril] 5 mg PO DAILY 08/18/17 04/19/19 Omeprazole Magnesium [PriLOSEC OTC] 20 mg PO DAILY 08/18/17 04/19/19 Chlorthalidone 25 mg PO DAILY 04/19/19 04/19/19 Previous Rx's Medication Instructions Recorded Aspirin 81 mg PO DAILY #0 chew 08/20/17 Atorvastatin [Lipitor] 80 mg PO HS #90 tab 08/20/17 Carvedilol [Coreg] 3.125 mg PO BID-W/MEALS #180 tab 08/20/17 Clopidogrel [Plavix] 75 mg PO DAILY #90 tab 08/20/17 Spironolactone [Aldactone] 25 mg PO DAILY #90 tab 08/20/17 Allergies Allergy/AdvReac Type Severity Reaction Status Date / Time No Known Allergies Allergy Verified 04/19/19 16:00 Review of Systems ROS Statement: Those systems with pertinent positive or pertinent negative responses have been documented in the HPI. ROS Other: All systems not noted in ROS Statement are negative. Past Medical History Past Medical History: Coronary Artery Disease (CAD), GERD/Reflux, H yperlipidemia, Hypertension, Myocardial Infarction (GA), Syncope, Thyroid Disorder Additional Past Medical History / Comment(s): She states she had a positive stress test about 5 yrs ago and that it was positive-she had chest pain during relieved with a nitrostat-states no further work up done at that time. diverticular dx, hemorrhoids, overactive bladder, hypothyroid, migraines, depression-feels well maintined on her meds/ Last Myocardial Infarction Date:: 08-18-17 History of Any Multi-Drug Resistant Organisms: None Reported Past Surgical History: Appendectomy, Heart Catheterization With Stent, Hysterectomy, Tonsillectomy Additional Past Surgical History / Comment(s): Multiple bilateral breast benign bxs, colonoscopies/polypectomies-bening, thyroid nodule removed=bening.heart cath stent to rca. Past Anesthesia/Blood Transfusion Reactions: No Reported Reaction Date of Last Stent Placement:: 08-18-17 Past Psychological History: Depression Smoking Status: Former smoker Past Alcohol Use History: Rare Past Drug Use History: None Reported - Past Family History Mother Additional Family Medical History / Comment(s): Depression Father Family Medical History: Coronary Artery Disease (CAD) General Exam - General Exam Comments Initial Comments: GENERAL: Patient is well-developed and well-nourished. Patient is nontoxic and well- hydrated and is in mild distress. ENT: Neck is soft and supple. No significant lymphadenopathy is noted. Oropharynx is clear. Moist mucous membranes. Neck has full range of motion without eliciting any pain. EYES: The sclera were anicteric and conjunctiva were pink and moist. Extraocular movements were intact and pupils were equal round and reactive to light. Eyelids were unremarkable. PULMONARY: Unlabored respirations. Good breath sounds bilaterally. No audible rales rhonchi or wheezing was noted. CARDIOVASCULAR: There is a regular rate and rhythm without any murmurs gallops or rubs. ABDOMEN: Soft and nontender with normal bowel sounds. No palpable organomegaly was noted. There is no palpable pulsatile mass. SKIN: Skin is clear with no lesions or rashes and otherwise unremarkable. NEUROLOGIC: Patient is alert and oriented x3. Cranial nerves II through XII are grossly intact. Motor and sensory are also intact. Normal speech, volume and content. Symmetrical smile. MUSCULOSKELETAL: Normal extremities with adequate strength and full range of motion. No lower extremity swelling or edema. No calf tenderness. LYMPHATICS: No significant lymphadenopathy is noted PSYCHIATRIC: Normal psychiatric evaluation. Limitations: no limitations Course Vital Signs 04/19/19 15:50 Pulse Rate 72 Respiratory 18 Rate Blood Pressure 176/89 O2 Sat by Pulse 98 Oximetry Medical Decision Making - Medical Decision Making EKG shows normal sinus rhythm at 60 bpm GA interval 242 QRS is 88 QT interval is 416 QTC is 442. Patient's EKG shows no ST segment elevation or depression. Chest x-ray shows no acute abnormality. CT of the aorta showed no dissection. I started patient on heparin for the unstable angina. I spoke with Dr. Sarabia he agreed to admit the patient admitted the patient wrote admitting orders. - Lab Data Result diagrams: 04/19/19 15:51 04/19/19 15:51 Lab Results 04/19/19 04/19/19 04/19/19 Range/Units 15:51 15:51 15:51 WBC 6.5 (3.8-10.6) k/uL RBC 4.36 (3.80-5.40) m/uL Hgb 12.3 (11.4-16.0) gm/dL Hct 37.7 (34.0-46.0) % MCV 86.6 (80.0-100.0) fL MCH 28.3 (25.0-35.0) pg MCHC 32.7 (31.0-37.0) g/dL RDW 15.0 (11.5-15.5) % Plt Count 244 (150-450) k/uL Neutrophils % 66 % Lymphocytes % 22 % Monocytes % 5 % Eosinophils % 2 % Basophils % 2 % Neutrophils # 4.3 (1.3-7.7) k/uL Lymphocytes # 1.4 (1.0-4.8) k/uL Monocytes # 0.3 (0-1.0) k/uL Eosinophils # 0.1 (0-0.7) k/uL Basophils # 0.1 (0-0.2) k/uL PT 9.6 (9.0-12.0) sec INR 0.9 (<1.2) APTT 23.9 (22.0-30.0) sec Sodium 138 (137-145) mmol/L Potassium 4.9 (3.5-5.1) mmol/L Chloride 106 (98-107) mmol/L Carbon Dioxide 19 L (22-30) mmol/L Anion Gap 13 mmol/L BUN 22 H (7-17) mg/dL Creatinine 0.87 (0.52-1.04) mg/dL Est GFR (CKD-EPI)AfAm 78 (>60 ml/min/1.73 sqM) Est GFR (CKD-EPI)NonAf 67 (>60 ml/min/1.73 sqM) Glucose 71 L (74-99) mg/dL Calcium 9.3 (8.4-10.2) mg/dL Magnesium 1.9 (1.6-2.3) mg/dL Total Bilirubin 1.5 H (0.2-1.3) mg/dL AST 57 H (14-36) U/L ALT 62 H (9-52) U/L Alkaline Phosphatase 108 (38-126) U/L Troponin I (0.000-0.034) ng/mL Total Protein 7.4 (6.3-8.2) g/dL Albumin 4.5 (3.5-5.0) g/dL 04/19/19 Range/Units 15:51 WBC (3.8-10.6) k/uL RBC (3.80-5.40) m/uL Hgb (11.4-16.0) gm/dL Hct (34.0-46.0) % MCV (80.0-100.0) fL MCH (25.0-35.0) pg MCHC (31.0-37.0) g/dL RDW (11.5-15.5) % Plt Count (150-450) k/uL Neutrophils % % Lymphocytes % % Monocytes % % Eosinophils % % Basophils % % Neutrophils # (1.3-7.7) k/uL Lymphocytes # (1.0-4.8) k/uL Monocytes # (0-1.0) k/uL Eosinophils # (0-0.7) k/uL Basophils # (0-0.2) k/uL PT (9.0-12.0) sec INR (<1.2) APTT (22.0-30.0) sec Sodium (137-145) mmol/L Potassium (3.5-5.1) mmol/L Chloride (98-107) mmol/L Carbon Dioxide (22-30) mmol/L Anion Gap mmol/L BUN (7-17) mg/dL Creatinine (0.52-1.04) mg/dL Est GFR (CKD-EPI)AfAm (>60 ml/min/1.73 sqM) Est GFR (CKD-EPI)NonAf (>60 ml/min/1.73 sqM) Glucose (74-99) mg/dL Calcium (8.4-10.2) mg/dL Magnesium (1.6-2.3) mg/dL Total Bilirubin (0.2-1.3) mg/dL AST (14-36) U/L ALT (9-52) U/L Alkaline Phosphatase (38-126) U/L Troponin I <0.012 (0.000-0.034) ng/mL Total Protein (6.3-8.2) g/dL Albumin (3.5-5.0) g/dL Critical Care Time Critical Care Time: Yes Total Critical Care Time: 35 Disposition Clinical Impression: Unstable angina pectoris Disposition: ADMITTED IP TO THIS HOSP Referrals: Gabriel Sarabia Jr, [Primary Care Provider] - 1-2 days Time of Disposition: 18:48
[2019-04-19 16:15] LABS: INR 0.9 (<1.2); Partial Thromboplastin Time 23.9 sec (22.0-30.0); Prothrombin Time 9.6 sec (9.0-12.0)
[2019-04-19 16:16] LABS: Albumin 4.5 g/dL (3.5-5.0); Calcium 9.3 mg/dL (8.4-10.2); Magnesium 1.9 mg/dL (1.6-2.3); Total Bilirubin 1.5 mg/dL (0.2-1.3); Total Protein 7.4 g/dL (6.3-8.2)
[2019-04-19 16:26] LABS: Potassium 4.9 mmol/L (3.5-5.1)
--- NOTE | 2019-04-19 16:33 | XR ---
EXAMINATION TYPE: XR chest 2V DATE OF EXAM: 04/19/2019 COMPARISON: 05/18/2018 HISTORY: Shortness of breath TECHNIQUE: Frontal and lateral views of the chest are obtained. FINDINGS: Scattered senescent parenchymal changes noted. Hyperinflation compatible with COPD. No evidence for infiltrate. No evidence for atelectasis. Heart size is stable. Mediastinal structures are stable and grossly unremarkable. No evidence for hilar prominence. Degenerative changes dorsal spine. IMPRESSION: 1. No evidence for acute pulmonary disease.
--- NOTE | 2019-04-19 17:45 | CT ---
EXAMINATION TYPE: CT angio thor/abd pel aorta DATE OF EXAM: 04/19/2019 COMPARISON: None HISTORY: Upper back and chest pain. Prior NV CT DLP: 1377.7 mGycm. Automated Exposure Control for Dose Reduction was Utilized. CONTRAST: CT scan of the thorax, abdomen and pelvis is performed with IV Contrast, patient injected with 100 mL of Isovue 370. FINDINGS: There are 3-D post processed images. Multiple axial sections were obtained from the thoracic inlet to the subtrochanteric femurs with and without intravenous contrast. The lungs are clear of consolidation. There is no pleural effusion. Tho racic aorta shows mild atheromatous change. Ascending aorta measures 3.2 cm. There is no aortic aneur ysm or dissection. I see no filling defects in the pulmonary arteries. There is small hiatal hernia. Liver spleen pancreas gallbladder are intact. Gallbladder is borderline dilated and measures 4.4 cm in diameter. The bile ducts are not dilated. There is rounded 1.5 cm left adrenal mass. Kidneys show satisfactory contrast opacification. There is no hydronephrosis. There are cortical cyst lower pole right kidney to measure up to 2.5 cm. There is no hydronephrosis. Ureters are not dilated. There is patency of the celiac artery and superior mesenteric artery. There is bilateral patency of t he renal arteries. There is bilateral patency of the iliac and femoral arteries. I see no evidence of hemodynamic stenos is. There is mild diffuse plaque in the lower abdominal aorta. There is no inguinal hernia. There are numerous diverticula in the sigmoid colon. IMPRESSION: No evidence of aortic aneurysm or dissection. Mild atherosclerotic vascular disease. No sign of hemod ynamic stenosis. No evidence of pulmonary embolism. Left adrenal mass unchanged compared to CT scan 4..16. Large gallbladder could relate to gallbladde r dysfunction or cholecystitis.
[2019-04-19] MEDS ORDERED: HEPARIN SOD,PORK IN 0.45% NACL 25,000 UNIT in 0.45% NACL 1 250ML.BAG IV SCH (18:45)
[2019-04-19] MEDS ORDERED: HEPARIN SODIUM,PORCINE 5,000 UNIT/ML 1 ML VIAL IV ONE (18:45)
[2019-04-19] MEDS ORDERED: NITROGLYCERIN SL TABS 0.4 MG TAB SUBLINGUAL PRN (18:48)
[2019-04-19 20:07] VITALS: RESP 18
[2019-04-19 20:19] VITALS: BMI 27.3
[2019-04-19] MEDS: ACETAMINOPHEN TAB 325 MG TAB PO PRN (20:48)
[2019-04-19] MEDS: FAMOTIDINE 20 MG TAB PO SCH (20:49)
[2019-04-19] MEDS: CARVEDILOL 3.125 MG TAB PO SCH (20:51)
[2019-04-19] MEDS ORDERED: MELATONIN 3 MG TABLET PO SCH (21:00)
[2019-04-19] MEDS ORDERED: ATORVASTATIN 80 MG TAB PO SCH (21:00)
[2019-04-19] MEDS: NITROGLYCERIN OINT 1 INCH/GM PACKET TOPICAL SCH (23:56)
[2019-04-20] MEDS: ACETAMINOPHEN TAB 325 MG TAB PO PRN (00:03)
[2019-04-20] MEDS: NITROGLYCERIN OINT 1 INCH/GM PACKET TOPICAL SCH (01:47)
[2019-04-20 02:58] LABS: Cholesterol 112 mg/dL (<200); HDL Cholesterol 48 mg/dL (40-60); LDL Cholesterol,Calculated 48 mg/dL (0-99); Triglycerides 82 mg/dL (<150)
[2019-04-20] MEDS ORDERED: LEVOTHYROXINE 100 MCG TAB PO SCH (06:30)
[2019-04-20 08:19] VITALS: PULSE 63
[2019-04-20] MEDS: CARVEDILOL 3.125 MG TAB PO SCH (08:36)
[2019-04-20] MEDS: FAMOTIDINE 20 MG TAB PO SCH (08:36)
[2019-04-20] MEDS ORDERED: ASPIRIN 81 MG PO SCH (09:00)
[2019-04-20] MEDS ORDERED: CLOPIDOGREL 75 MG TAB PO SCH (09:00)
[2019-04-20] MEDS ORDERED: SPIRONOLACTONE 25 MG TAB PO SCH (09:00)
[2019-04-20] MEDS ORDERED: LISINOPRIL 5 MG TAB PO SCH (09:00)
[2019-04-20] MEDS ORDERED: ASPIRIN 325 MG TAB PO SCH (09:00)
[2019-04-20] MEDS ORDERED: CHLORTHALIDONE 25 MG TAB PO SCH (09:00)
--- NOTE | 2019-04-20 10:09 | P.CRDCN ---
History of Present Illness History of present illness: This is a pleasant 69-year-old female past medical history significant for coronary artery disease s/p stent placement, hypertension, dyslipidemia, chronic systolic heart failure and ischemic cardiomyopathy. Most recent catheterization 08/2017 revealed left main no high grade stenosis, LAD 20-30% plaque in the mid segment, circumflex proximal to OM with 40-50% plaque, RCA totally occluded in the mid segment. She follows with Dr. Barrera in the office. We have been asked to see her in consultation for chest pain and shortness of breath. She states for the previous few months she has been experiencing intermittent shortness of breath. Not always associated with exertion however at times does get worse with activity. For the last few nights she has been experiencing worsening shortness of breath specifically at night. She also suffers from insomnia and has not been sleeping. She went to see Dr. Sarabia in the office yesterday. While in the office she started feeling a throbbing sensation in the upper back in the mid scapular region. There was no radiation to the chest, down the arm or into the neck. During this episode she was not short of breath, dizzy, nauseated or diaphoretic. There was no palpitations. She is seen and examined sitting up in bed in no acute distress. She is chest/back pain free with no active shortness of breath. EKG reveals sinus mechanism with no acute ST or T-wave abnormalities noted. Chest xray is negative for an acute cardiopulmonary process. Laboratory data reviewed, CBC unremarkable, sodium 138, potassium 4.9, creatinine 0.87, total bilirubin 1.5, AST 57, ALT 62, cardiac enzymes negative x3, LDL 48. Current cardiac medications include aldactone 25 mg daily, lisinopril 5 mg daily, plavix 75 mg daily, chlorthalidone 25 mg daily, coreg 3.215 mg BID, aspirin 81 mg daily and atorvastatin 81 mg daily. Most recent stress test 05/2018 was negative for reversible ischemia. Most recent echocardiogram obtained in the office 04/2018 reveals preserved LV systolic function with EF 50%, moderate AR and grade 1 diastolic dysfunction. In the past EF has been around 40-45%. At the time of my exam: CONSTITUTIONAL: Denies fever. Denies chills. EYES: Denies blurred vision. Denies vision changes. Denies eye pain. EARS, NOSE, MOUTH & THROAT: Denies headache. Denies sore throat. Denies ear pain. CARDIOVASCULAR: Denies chest pain. Denies shortness of breath. Denies orthopnea. Denies PND. Denies palpitations. RESPIRATORY: Denies cough. GASTROINTESTINAL: Denies abdominal pain. Denies diarrhea. Denies constipation. Denies nausea. Denies vomiting. MUSCULOSKELETAL: Denies myalgias. INTEGUMENTARY: Denies pruitis. Denies rash. NEUROLOGIC: Denies numbness. Denies tingling. Denies weakness. PSYCHIATRIC: Denies anxiety. Denies depression. ENDOCRINE: Denies fatigue. Denies weight change. Denies polydipsia. Denies polyurina. GENITOURINARY: Denies burning, hematuria or urgency with micturation. HEMATOLOGIC: Denies history of anemia. Denies bleeding. Blood pressure 106/72 heart rate 63 afebrile maintaining oxygen saturation on room air GENERAL: This is a 69-year-old female in no apparent distress at the time of my examination. HEENT: Head is atraumatic, normocephalic. Pupils are equal, round. Sclerae anicteric. Conjunctivae are clear. Mucous membranes of the mouth are moist. Neck is supple. There is no jugular venous distention. No carotid bruit is heard. LUNGS: Clear to auscultation no wheezes, rales or rhonchi. No chest wall tenderness is noted on palpation or with deep breathing. HEART: Regular rate and rhythm with faint murmur at the left sternal border, no rubs or gallops. S1 and S2 heard. ABDOMEN: Soft, nontender. Bowel sounds are heard. No organomegaly noted. EXTREMITIES: No evidence of peripheral edema and no calf tenderness noted. VASCULAR: Radial and dorsalis pedis pulses palpated, no evidence of clubbing. NEUROLOGIC: Patient is awake, alert and oriented x3. ASSESSMENT Shortness of breath and chest pain, an acute coronary event has been ruled out. Hx of chronic heart failure in the past, clinically euvolemic. Coronary artery disease s/p stent placement to the RCA 08/2017 Chronic systolic and diastolic heart failure, currently euvolemic. Last echo revealing preserved LV systolic function Hypertension Dyslipidemia Ischemic cardiomyopathy PLAN Check proBNP. Obtain 2D echocardiogram and doppler study to assess cardiac structure and function. Clinically she is euvolemic. Symptoms are atypical to be related to progression of underlying CAD, would benefit from outpatient pulmonary function testing. Recommend increasing activity and ambulation. If she remains asymptomatic she may be discharged home to follow up with Dr. Barrera next week. Thank you kindly for this consultation. Nurse Practitioner note has been reviewed, I agree with a documented findings and plan of care. Patient was seen and examined. Past Medical History Past Medical History: Coronary Artery Disease (CAD), GERD/Reflux, Hyperlipidemia, Hypertension, Myocardial Infarction (HI), Syncope, Thyroid Disorder Additional Past Medical History / Comment(s): She states she had a positive stress test about 5 yrs ago and that it was positive-she had chest pain during relieved with a nitrostat-states no further work up done at that time. divert icular dx, hemorrhoids, overactive bladder, hypothyroid, migraines, depression- feels well maintined on her meds/ Last Myocardial Infarction Date:: 08-18-17 History of Any Multi-Drug Resistant Organisms: None Reported Past Surgical History: Appendectomy, Heart Catheterization With Stent, Hysterectomy, Tonsillectomy Additional Past Surgical History / Comment(s): Multiple bilateral breast benign bxs, colonoscopies/polypectomies-bening, thyroid nodule removed=bening.heart cath stent to rca. Past Anesthesia/Blood Transfusion Reactions: No Reported Reaction Date of Last Stent Placement:: 08-18-17 Smoking Status: Former smoker - Past Family History Mother Additional Family Medical History / Comment(s): Depression Father Family Medical History: Coronary Artery Disease (CAD) Medications and Allergies Home Medications Medication Instructions Recorded Confirmed Type Levothyroxine Sodium [Synthroid] 100 mcg PO DAILY 08/18/17 04/19/19 History Lisinopril [Zestril] 5 mg PO DAILY 08/18/17 04/19/19 History Aspirin 81 mg PO DAILY #0 chew 08/20/17 04/19/19 Rx Atorvastatin [Lipitor] 80 mg PO HS #90 tab 08/20/17 04/19/19 Rx Carvedilol [Coreg] 3.125 mg PO BID-W/MEALS #180 tab 08/20/17 04/19/19 Rx Clopidogrel [Plavix] 75 mg PO DAILY #90 tab 08/20/17 04/19/19 Rx Spironolactone [Aldactone] 25 mg PO DAILY #90 tab 08/20/17 04/19/19 Rx Chlorthalidone 25 mg PO DAILY 04/19/19 04/19/19 History Ranitidine HCl [Zantac] 150 mg PO BID 04/19/19 04/19/19 History Allergies Allergy/AdvReac Type Severity Reaction Status Date / Time No Known Allergies Allergy Verified 04/19/19 20:00 Physical Exam Vitals: Vital Signs Temp Pulse Pulse Resp BP BP Pulse Ox 04/20/19 03:03 97.6 F 72 18 108/66 97 04/20/19 02:28 18 04/20/19 00:00 97.5 F L 67 18 99/62 99 04/19/19 23:51 18 04/19/19 20:00 98 F 71 18 106/71 97 04/19/19 19:00 77 17 117/73 95 04/19/19 18:30 69 13 132/71 96 04/19/19 17:00 67 17 138/73 04/19/19 16:30 64 18 143/102 97 04/19/19 16:00 68 21 176/89 96 04/19/19 15:50 72 18 176/89 98 Intake and Output 04/19/19 04/20/19 04/20/19 22:59 06:59 14:59 Intake Total 69.291 Balance 69.291 Intake: Intake, IV Titration 69.291 Amount Heparin Sod,Pork in 0.45% 69.291 NaCl 25,000 unit In 0.45 % NaCl 1 250ml.bag @ 12 UNITS/KG/HR 8.382 mls/hr IV .Q24H [facility] Rx#: [id number] Other: # Voids 1 1 Weight 69.853 kg Results 04/19/19 15:51 04/19/19 15:51 Cardiac Enzymes 04/19/19 04/19/19 04/19/19 Range/Units 15:51 15:51 21:21 AST 57 H (14-36) U/L Troponin I <0.012 <0.012 (0.000-0.034) ng/mL 04/20/19 Range/Units 01:20 AST (14-36) U/L Troponin I <0.012 (0.000-0.034) ng/mL Coagulation 04/19/19 04/20/19 Range/Units 15:51 01:20 PT 9.6 (9.0-12.0) sec APTT 23.9 99.5 H (22.0-30.0) sec Lipids 04/19/19 Range/Units 15:51 Triglycerides 82 (<150) mg/dL Cholesterol 112 (<200) mg/dL HDL Cholesterol 48 (40-60) mg/dL CBC 04/19/19 Range/Units 15:51 WBC 6.5 (3.8-10.6) k/uL RBC 4.36 (3.80-5.40) m/uL Hgb 12.3 (11.4-16.0) gm/dL Hct 37.7 (34.0-46.0) % Plt Count 244 (150-450) k/uL Comprehensive Metabolic Panel 04/19/19 Range/Units 15:51 Sodium 138 (137-145) mmol/L Potassium 4.9 (3.5-5.1) mmol/L Chloride 106 (98-107) mmol/L Carbon Dioxide 19 L (22-30) mmol/L BUN 22 H (7-17) mg/dL Creatinine 0.87 (0.52-1.04) mg/dL Glucose 71 L (74-99) mg/dL Calcium 9.3 (8.4-10.2) mg/dL AST 57 H (14-36) U/L ALT 62 H (9-52) U/L Alkaline Phosphatase 108 (38-126) U/L Total Protein 7.4 (6.3-8.2) g/dL Albumin 4.5 (3.5-5.0) g/dL Current Medications Generic Name Dose Route Start Last Admin Trade Name Yuryq PRN Reason Stop Dose Admin Acetaminophen 650 mg 04/19/19 20:29 04/20/19 00:03 Tylenol Tab PO 650 mg Q4HR PRN Administration Fever and/ or Pain Aspirin 325 mg 04/20/19 09:00 Aspirin PO DAILY [facility] Atorvastatin Calcium 80 mg 04/19/19 21:00 04/19/19 20:49 Lipitor PO 80 mg HS [facility] Administration Carvedilol 3.125 mg 04/19/19 20:30 04/19/19 20:51 Coreg PO 3.125 mg BID-W/MEALS [facility] Administration Chlorthalidone 25 mg 04/20/19 09:00 [place] PO DAILY [facility] Clopidogrel Bisulfate 75 mg 04/20/19 09:00 Plavix PO DAILY [facility] Famotidine 20 mg 04/19/19 21:00 04/19/19 20:49 Pepcid PO 20 mg BID [facility] Administration Heparin Sodium/Sodium Chloride 250 mls @ 8.382 mls/hr 04/19/19 18:45 04/20/19 03:40 25,000 unit/ Sodium Chloride IV 10 units/kg/hr .Q24H [facility] 6.985 mls/hr Titration Protocol 12 UNITS/KG/HR Levothyroxine Sodium 100 mcg 04/20/19 06:30 04/20/19 05:46 Synthroid PO 100 mcg DAILY@0630 [facility] Administration Lisinopril 5 mg 04/20/19 09:00 Zestril PO DAILY [facility] Melatonin 3 mg 04/19/19 21:00 04/19/19 20:49 Melatonin PO 3 mg HS [facility] Administration Nitroglycerin 0.4 mg 04/19/19 18:48 Nitrostat SUBLINGUAL Q5M PRN Chest Pain Nitroglycerin 1 inch 04/20/19 00:00 04/20/19 01:47 Nitro-Bid Oint TOPICAL Not Given Q6HR [facility] Spironolactone 25 mg 04/20/19 09:00 Aldactone PO DAILY [facility] Intake and Output 04/19/19 04/20/19 04/20/19 22:59 06:59 14:59 Intake Total 69.291 Balance 69.291 Intake: Intake, IV Titration 69.291 Amount Heparin Sod,Pork in 0.45% 69.291 NaCl 25,000 unit In 0.45 % NaCl 1 250ml.bag @ 12 UNITS/KG/HR 8.382 mls/hr IV .Q24H [facility] Rx#: [id number] Other: # Voids 1 1 Weight 69.853 kg 04/19/19 15:51 04/19/19 15:51
[2019-04-20 11:32] VITALS: BP 137/84; TEMP 98.3
--- NOTE | 2019-04-20 11:49 | ECHOF ---
Referral Reason:sob MEASUREMENTS -------- HEIGHT: 160.0 cm WEIGHT: 69.9 kg BP: 120/60 IVSd: 1.2 cm (0.6 - 1.1) LVIDd: 4.2 cm (3.9 - 5.3) LVPWd: 1.0 cm (0.6 - 1.1) IVSs: 1.2 cm LVIDs: 3.6 cm LVPWs: 1.0 cm LA Diam: 2.8 cm (2.7 - 3.8) LAESV Index (A-L): 13.00 ml/m Ao Diam: 3.4 cm (2.0 - 3.7) AV Cusp: 1.4 cm (1.5 - 2.6) LA Diam: 3.1 cm (2.7 - 3.8) MV EXCURSION: 21.518 mm (> 18.000) MV EF SLOPE: 123 mm/s (70 - 150) EPSS: 2.0 cm MV E Handy: 0.56 m/s MV DecT: 314 ms MV A Handy: 0.95 m/s MV E/A Ratio: 0.59 RAP: 5.00 mmHg RVSP: 14.41 mmHg FINDINGS -------- Sinus rhythm. This was a technically adequate study. The left ventricular size is normal. There is mild concentric left ventricular hypertrophy. Overa ll left ventricular systolic function is low-normal with, an EF between 50 - 55 %. The right ventricle is normal in size. The left atrial size is normal. The right atrial size is normal. There is mild aortic valve sclerosis. There is mild aortic regurgitation. Mild mitral annular calcification present. Mild mitral regurgitation is present. Mild tricuspid regurgitation present. There is no evidence of pulmonary hypertension. The right v entricular systolic pressure, as measured by Doppler, is 14.41mmHg. There is no pulmonic regurgitation present. The aortic root size is normal. There is no pericardial effusion. CONCLUSIONS -------- 1. Sinus rhythm. 2. This was a technically adequate study. 3. The left ventricular size is normal. 4. There is mild concentric left ventricular hypertrophy. 5. Overall left ventricular systolic function is low-normal with, an EF between 50 - 55 %. 6. The right ventricle is normal in size. 7. The left atrial size is normal. 8. The right atrial size is normal. 9. There is mild aortic valve sclerosis. 10. There is mild aortic regurgitation. 11. Mild mitral annular calcification present. 12. Mild mitral regurgitation is present. 13. Mild tricuspid regurgitation present. 14. There is no evidence of pulmonary hypertension. 15. The right ventricular systolic pressure, as measured by Doppler, is 14.41mmHg. 16. There is no pulmonic regurgitation present. 17. The aortic root size is normal. 18. There is no pericardial effusion. MANAGEMENT CONSULTING: Michelle Nance RDCS
[2019-04-21] MEDS ORDERED: FAMOTIDINE 20 MG TAB PO SCH (09:00)
--- NOTE | 2019-04-23 16:39 | P.HPIM ---
History of Present Illness H &P and Discharge Summary This is a 69-year-old female presented to the ER with back pain/right mid scapula pain accompanied by shortness of breath reoccurring throughout the last month, resembling her prior MO, subsiding after about half an hour. Relieved after 2 nitroglycerin sublingual tablets. Denies any chest pain, palpitations. Denies any nausea ,vomiting, diarrhea or abdominal pain. Denies any lightheadedness dizziness or focal deficits. Denies syncope. Troponins negative 3. EKG reported normal sinus rhythm. Chest x-ray nonacute. CT reported no aneurysm, no aortic dissection, ascending aorta 3.2 cm, small hiatal hernia, gallbladder borderline dilated, measuring 4.47 L in diameter, bile ducts not dilated. 1.5 cm left adrenal mass-unchanged compared to computed tomography scan 11/23/2015, no hydronephrosis, cortical cysts lower pole right kidney measuring up to 2.5 cm, ureters not dilated. Reported no hemodynamic stenosis/no PE. Numerous diverticula in the sigmoid colon. Heparin drip initiated. Echo noted. T bili 1.5, AST 57, ALT 62 Review of Systems ROS Statement: Those systems with pertinent positive or pertinent negative responses have been documented in the HPI. ROS Other: All systems not noted in ROS Statement are negative. Past Medical History Past Medical History: Coronary Artery Disease (CAD), GERD/Reflux, Hyperlipidemia, Hypertension, Myocardial Infarction ([place]), Syncope, Thyroid Disorder Additional Past Medical History / Comment(s): She states she had a positive stress test about 5 yrs ago and that it was positive-she had chest pain during relieved with a nitrostat-states no further work up done at that time. diverticular dx, hemorrhoids, overactive bladder, hypothyroid, migraines, depression-feels well maintined on her meds/ Last Myocardial Infarction Date:: 08-18-17 History of Any Multi-Drug Resistant Organisms: None Reported Past Surgical History: Appendectomy, Heart Catheterization With Stent, Hysterectomy, Tonsillectomy Additional Past Surgical History / Comment(s): Multiple bilateral breast benign bxs, colonoscopies/polypectomies-bening, thyroid nodule removed=bening.heart cath stent to rca. Past Anesthesia/Blood Transfusion Reactions: No Reported Reaction Date of Last Stent Placement:: 08-18-17 Smoking Status: Former smoker - Past Family History Mother Additional Family Medical History / Comment(s): Depression Father Family Medical History: Coronary Artery Disease (CAD) Medications and Allergies Home Medications Medication Instructions Recorded Confirmed Type Levothyroxine Sodium [Synthroid] 100 mcg PO DAILY 08/18/17 04/19/19 History Lisinopril [Zestril] 5 mg PO DAILY 08/18/17 04/19/19 History Aspirin 81 mg PO DAILY #0 chew 08/20/17 04/19/19 Rx Atorvastatin [Lipitor] 80 mg PO HS #90 tab 08/20/17 04/19/19 Rx Carvedilol [Coreg] 3.125 mg PO BID-W/MEALS #180 tab 08/20/17 04/19/19 Rx Clopidogrel [Plavix] 75 mg PO DAILY #90 tab 08/20/17 04/19/19 Rx Spironolactone [Aldactone] 25 mg PO DAILY #90 tab 08/20/17 04/19/19 Rx Chlorthalidone 25 mg PO DAILY 04/19/19 04/19/19 History Ranitidine HCl [Zantac] 150 mg PO BID 04/19/19 04/19/19 History Allergies Allergy/AdvReac Type Severity Reaction Status Date / Time No Known Allergies Allergy Verified 04/19/19 20:00 Physical Exam Vitals: Vital Signs Temp Pulse Pulse Resp BP BP Pulse Ox 04/20/19 12:00 63 18 04/20/19 11:30 98.3 F 63 18 137/84 98 04/20/19 08:00 97.7 F 63 18 106/72 97 04/20/19 03:03 97.6 F 72 18 108/66 97 04/20/19 02:28 18 04/20/19 00:00 97.5 F L 67 18 99/62 99 04/19/19 23:51 18 04/19/19 20:00 98 F 71 18 106/71 97 04/19/19 19:00 77 17 117/73 95 04/19/19 18:30 69 13 132/71 96 Intake and Output 04/20/19 04/20/19 04/20/19 06:59 14:59 22:59 Intake Total 69.291 400 Balance 69.291 400 Intake: Intake, IV Titration 69.291 Amount Heparin Sod,Pork in 0.45% 69.291 NaCl 25,000 unit In 0.45 % NaCl 1 250ml.bag @ 12 UNITS/KG/HR 8.382 mls/hr IV .Q24H [facility] Rx#: [id number] Other 400 Other: Voiding Method Toilet # Voids 1 PHYSICAL EXAM: VITAL SIGNS: [As above] GENERAL: Sitting up in bed, no acute distress HEENT: Conjunctivae normal. eyes normal. NECK: No JVD. No thyroid enlargement. No LNs CARDIOVASCULAR: S1, S2 regular. Systolic murmur-left sternal border RESPIRATION: Breath sounds diminished in the bases. No rhonchi or crackles. No bronchial breathing. ABDOMEN: Soft, nontender . No guarding. no masses palpable. No ascites, No hepatosplenomegaly.Bowel sounds heard. LEGS: No edema. no swelling . No calf tenderness. PSYCHIATRY: Alert and oriented X3, mood and affect normal. NERVOUS SYSTEM: Cranial N 2-12 grossly normal. Moves all 4 limbs. No focal deficits. Strength and sensation grossly intact.. Skin: no lesions, no rash Joints: No active swelling. No inflammation. Lymphatic system. No LN neck axilla or groin. Results CBC & Chem 7: 04/19/19 15:51 04/19/19 15:51 Labs: Abnormal Lab Results - Last 24 Hours (Table) 04/20/19 Range/Units 01:20 APTT 99.5 H (22.0-30.0) sec Thrombosis Risk Factor Assmnt - Choose All That Apply Each Risk Factor Represents 2 Points: Age 61-74 years Thrombosis Risk Factor Assessment Total Risk Factor Score: 2 Thrombosis Risk Factor Assessment Level: Low Risk Assessment and Plan Assessment: -Acute cholecystitis. Acute coronary syndrome ruled out as per cardiology. -CAD, history of stent placement -Chronic systolic and diastolic CHF, EF 50-55% -Ischemic cardiomyopathy -Hypertension -Left adrenal mass, unchanged compared to computed tomography scan 11/23/2015 -Arteriosclerotic vascular disease Plan: Continue current medication regime ,monitoring and symptomatic treatment. Significant clinical improvement. Ambulated, tolerated exertion well. No lightheadedness dizziness or focal deficits, no chest pain, palpitations or shortness of breath. Evaluated by cardiology and cleared for discharge. Patient requesting to see Dr. Costa from surgery, who is off this week therefore will follow up with outpatient. Outpatient HIDA scan scheduled. Patient is being discharged home in a stable condition with guarded prognosis. The impression and plan of care has been dictated as directed. : I performed a history and examination of this patient, discussed the same with the dictator. I agree with the dictator's note ,documented as a scribe. Any additional findings or plans will be noted. Time taken: 35 minutes
== END 2019-04-20 13:15 | disposition home or self-care (01) ==
LOC: EC 15:43 → 1SOBS 18:56
PROVIDERS: ADMIT Family Medicine; ATTEND Family Medicine
DX: R07.89 Other chest pain (principal); M54.9 Dorsalgia, unspecified; M25.511 Pain in right shoulder; R06.02 Shortness of breath; K81.0 Acute cholecystitis; I25.2 Old myocardial infarction; I25.10 Atherosclerotic heart disease of native coronary artery without angina pectoris; I11.0 Hypertensive heart disease with heart failure; I50.42 Chronic combined systolic (congestive) and diastolic (congestive) heart failure; I25.5 Ischemic cardiomyopathy; K21.9 Gastro-esophageal reflux disease without esophagitis; E78.5 Hyperlipidemia, unspecified; E03.9 Hypothyroidism, unspecified; N32.81 Overactive bladder; E27.9 Disorder of adrenal gland, unspecified; I70.90 Unspecified atherosclerosis; G47.00 Insomnia, unspecified; I48.91 Unspecified atrial fibrillation; F32.9 Major depressive disorder, single episode, unspecified; Z87.19 Personal history of other diseases of the digestive system; Z95.5 Presence of coronary angioplasty implant and graft; Z87.891 Personal history of nicotine dependence; Z79.899 Other long term (current) drug therapy; Z79.82 Long term (current) use of aspirin; Z79.02 Long term (current) use of antithrombotics/antiplatelets; Z79.890 Hormone replacement therapy; Z81.8 Family history of other mental and behavioral disorders; Z82.49 Family history of ischemic heart disease and other diseases of the circulatory system
CPT/HCPCS: 96366 ×2; 96376; 96365; 99291; 36415; 93005; 93306; 83880; 80061; 80053; 83735; 84484 ×2; 85025; 85610; 85730 ×2; 71046; 71275; 74174; G0378 ×2; J1644 ×2; Q9967

== ENCOUNTER → 2019-04-30 | Outpatient (CLI) | payer MEDICARE, OTHER ==
--- NOTE | 2019-04-30 16:30 | NM ---
EXAMINATION TYPE: NM hepatobiliary w EF DATE OF EXAM: 04/30/2019 COMPARISON: NONE HISTORY: Right lower quadrant pain TECHNIQUE: After the intravenous administration of 4.4 mCi Tc 99m Mebrofenin hepatobiliary scintigrap hy is performed. Immediate images post injection. FINDINGS: There is satisfactory initial accumulation of tracer by the liver. The gallbladder is visualized wit hin 8 minutes. The small bowel activity is noted within 10 minutes. At one hour 8 ounces of oral en sure plus is given to mimic CCK and gallbladder ejection fraction is calculated at 80 %, in the kaci l range. Therefore there is no scintigraphic evidence of cystic or common bile duct obstruction to s uggest acute cholecystitis or gallbladder dyskinesia. IMPRESSION: Exam is within normal limits.
== END | disposition home or self-care (01) ==
LOC: RADNMMAIN 12:45
PROVIDERS: ATTEND Family Medicine
DX: R10.31 Right lower quadrant pain (principal)
CPT/HCPCS: 78226; A9537

== ENCOUNTER → 2020-03-26 | Outpatient (CLI) | payer MEDICARE, OTHER ==
[2020-03-26 15:36] LABS: Albumin 4.2 g/dL (3.80-4.90); Albumin/Globulin Ratio 1.91 (1.60-3.17); Anion Gap 6.4 mmol/L (4.00-12.00); BUN/Creat Ratio 14.44 Ratio (12.00-20.00); Calcium 9.3 mg/dL (8.7-10.3); Carbon Dioxide 28.6 mmol/L (21.6-31.8); Chol/HDL Ratio 2.53; Globulin 2.2 g/dL (1.6-3.3); LDL Cholesterol,Calculated 54.2 mg/dL (0.0-131.0); Non-African American GFR(CKD) 63.9 (60.0-200.0); Potassium 4.5 mmol/L (3.5-5.5); Total Bilirubin 0.6 mg/dL (0.3-1.2); Total Protein 6.4 g/dL (6.2-8.2); VLDL Calculation 14.8 mg/dL (5.00-40.00)
== END | disposition home or self-care (01) ==
LOC: LABWHC1 07:06
PROVIDERS: ATTEND Nurse Practitioner Adult Health
DX: I10 Essential (primary) hypertension (principal); E78.2 Mixed hyperlipidemia
CPT/HCPCS: 36415; 80053; 80061

== ENCOUNTER → 2020-10-14 | Outpatient (CLI) | payer MEDICARE ==
[2020-10-14 20:13] LABS: African American GFR (CKD) 58.1 (60.0-200.0); Albumin 4.8 g/dL (3.80-4.90); Albumin/Globulin Ratio 1.78 (1.60-3.17); Anion Gap 8.4 mmol/L (4.00-12.00); BUN/Creat Ratio 16.36 Ratio (12.00-20.00); Calcium 9.6 mg/dL (8.7-10.3); Carbon Dioxide 28.6 mmol/L (21.6-31.8); Chol/HDL Ratio 2.79; Globulin 2.7 g/dL (1.6-3.3); LDL Cholesterol,Calculated 74.8 mg/dL (0.0-131.0); Non-African American GFR(CKD) 50.1 (60.0-200.0); Potassium 4.3 mmol/L (3.5-5.5); Total Bilirubin 1.3 mg/dL (0.2-1.2); Total Protein 7.5 g/dL (6.2-8.2); VLDL Calculation 18.2 mg/dL (5.00-40.00)
== END | disposition home or self-care (01) ==
LOC: LABWHC1 13:06
PROVIDERS: ATTEND Internal Medicine Interventional Cardiology
DX: E78.2 Mixed hyperlipidemia (principal)
CPT/HCPCS: 36415; 80053; 80061

== ENCOUNTER → 2020-12-22 | Outpatient (CLI) | payer MEDICARE ==
[2020-12-22 14:49] LABS: Basophils # (A) 0.04 X 10*3/uL (0.00-0.10); Basophils % (A) 0.9 %; Eosinophils # (A) 0.07 X 10*3/uL (0.04-0.35); Eosinophils % (A) 1.6 %; HCT 38.3 % (37.2-46.3); HGB 11.3 g/dL (12.0-15.0); Lymphocytes # (A) 1.17 X 10*3/uL (0.90-5.00); MCH 25.6 pg (27.0-32.0); MCHC 29.5 g/dL (32.0-37.0); MCV 86.7 fL (80.0-97.0); Monocytes # (A) 0.46 X 10*3/uL (0.20-1.00); Monocytes % (A) 10.2 %; Neutrophils # (A) 2.75 X 10*3/uL (1.80-7.70); Neutrophils % (A) 61.1 %; Platelet Count 263 X 10*3/uL (140-440); RBC 4.42 X 10*6/uL (4.10-5.20); RDW 15.3 % (11.5-14.5)
[2020-12-22 16:24] LABS: African American GFR (CKD) 65.2 (60.0-200.0); Anion Gap 5.9 mmol/L (4.00-12.00); Carbon Dioxide 25.1 mmol/L (21.6-31.8); Non-African American GFR(CKD) 56.2 (60.0-200.0); Potassium 4.7 mmol/L (3.5-5.5)
[2020-12-22 16:32] LABS: T4, Free (Free Thyroxine) 1.3 ng/dL (0.80-1.80)
== END | disposition home or self-care (01) ==
LOC: LABWHC1 07:43
PROVIDERS: ATTEND Psychiatry & Neurology Psychiatry
DX: Z03.89 Encounter for observation for other suspected diseases and conditions ruled out (principal); E03.9 Hypothyroidism, unspecified; F33.1 Major depressive disorder, recurrent, moderate; Z79.899 Other long term (current) drug therapy
CPT/HCPCS: 36415; 80051; 82306; 82565; 82607; 84439; 84443; 84450; 84460; 84520; 85025

== ENCOUNTER → 2021-08-11 | Outpatient (CLI) | payer MEDICARE ==
--- NOTE | 2021-08-11 15:42 | BD ---
EXAMINATION TYPE: Axial Bone Density DATE OF EXAM: 08/11/2021 COMPARISON: 12/26/2012 CLINICAL HISTORY: Height: 61.4 IN Weight: 158 LBS FRAX RISK QUESTIONS: Secondary Osteoporosis: 3. Menopause before 45: PARTIAL HYST AGE 35 RISK FACTORS HISTORY OF: History of Wrist Fracture: LT WRIST AGE 48 Family History of Osteoporosis: YES Active: YES Diet low in dairy products/other sources of calcium: YES Postmenopausal woman: PARTIAL HYST AGE 35 Take estrogen and/or progesterone medications: NOT NOW How long: TOOK FOR 2 YEARS MEDICATIONS: Thyroid Medications: YES Which medication: Levothyroxine How Lon+ YEARS Additional Medications: LEVOTHYROXINE,HEART PILLS EXAM MEASUREMENTS: Bone mineral densitometry was performed using the [email or web address] System. Bone mineral density as measured about the Lumbar spine is: ----- L1-L4(G/cm2): 0.976 T Score Values are as follows: ----- L2: -1.3 ----- L3: -1.7 ----- L4: -1.7 ----- L1-L4: -1.7 Bone mineral density has: Increased 5.3% since study of: 12/26/2012 Bone mineral density about the R hip (g/cm2): 0.697 Bone mineral density about the L hip (g/cm2): 0.674 T Score values are as follows: -----R Neck: -2.5 -----L Neck: -2.6 -----R Total: -2.5 -----L Total: -2.7 Bone mineral density has: Decreased -8.4% since study of: 12/26/2012 IMPRESSION: Osteoporosis (T Score less than -2.5). There is increased fracture risk and therapy is usually indicated based on age. Re-Screen 1-2 years. NOTE: T-SCORE=SD OF THE YOUNG ADULT MEAN.
--- NOTE | 2021-08-13 10:02 | MM ---
Reason for exam: screening (asymptomatic). Last mammogram was performed 3 years and 6 months ago. History: Patient is postmenopausal. Family history of breast cancer in maternal grandmother. Benign MG stereo VAD BX LT of the left breast, January 27, 2017. Benign MG stereo VAD BX RT of the right breast, June 05, 2014. Benign left mammotome panel of the left breast, September 26, 2009. Benign left mammotome panel of the left breast, April 07, 2007. Benign left mammotome panel of the left breast, April 07, 2007. Benign left mammotome panel of the left breast, April 07, 2007. Benign excisional biopsy of the right breast, 1999. Took estrogen for 5 years beginning at age 35. Physical Findings: A clinical breast exam by your physician is recommended on an annual basis and results should be correlated with mammographic findings. MG 3D Screening Mammo W/Cad Bilateral CC and MLO view(s) were taken. Prior study comparison: February 21, 2018, bilateral MG 3d screening mammo w/cad. July 28, 2017, left breast MG 3d diag mammo w/cad LT. The breast tissue is heterogeneously dense. This may lower the sensitivity of mammography. Previous mammotome biopsy in the left breast x 5. Possible early developing oil cyst calcification right upper outer quadrant is new. 6 month follow up. ASSESSMENT: Probably benign, BI-RAD 3 RECOMMENDATION: Follow-up diagnostic mammogram of the right breast in 6 months.
== END | disposition home or self-care (01) ==
LOC: RADMAMWWP 12:49
PROVIDERS: ATTEND Obstetrics & Gynecology
DX: Z12.31 Encounter for screening mammogram for malignant neoplasm of breast (principal); M81.0 Age-related osteoporosis without current pathological fracture; Z78.0 Asymptomatic menopausal state; Z80.3 Family history of malignant neoplasm of breast
CPT/HCPCS: 77063; 77067; 77080

== ENCOUNTER → 2022-02-03 | Outpatient (CLI) | payer MEDICARE ==
--- NOTE | 2022-02-03 14:30 | MM ---
Reason for Exam: Follow-up at short interval from prior study. Last screening mammogram was performed 5 month(s) ago. Patient History: Menarche at age 10. First Full-Term at age 23. Left ovary removed at age 35. Right ovary removed at age 35. Hysterectomy at age 35. Postmenopausal. Estrogen for 5 years from age 35 until age 40. 1999, Benign Excisional Biopsy on the right side. 01/27/2017, Benign Core Biopsy on the left side. 06/05/2014, Benign Core Biopsy on the right side. 09/26/2009, Benign Core Biopsy on the left side. 04/07/2007, Benign Core Biopsy on the left side. 04/07/2007, Benign Core Biopsy on the left side. 04/07/2007, Benign Core Biopsy on the left side. Maternal grandmother had breast cancer. Risk Values: Sonam 5 year model risk: 2.9%. NCI Lifetime model risk: 7.1%. Prior Study Comparison: 07/28/2017 Left Diagnostic Mammogram, [facility]. 02/21/2018 Bilateral Screening Mammogram, [facility]. 08/11/2021 Bilateral Screening Mammogram, [facility]. Tissue Density: Right: The breast tissue is heterogeneously dense. This may lower the sensitivity of mammography. Findings: Analyzed By CAD. There is persistent rounded area of punctate calcifications. However, this does not appear to be a rim but multiple punctate grouped calcifications. Histologic evaluation is recommended. Overall Assessment: Suspicious, BI-RAD 4 Management: Stereotactic Core Biopsy of the right breast. A clinical breast exam by your physician is recommended on an annual basis and results should be correlated with mammographic findings. This exam should not preclude additional follow-up of suspicious palpable abnormalities. Results were given to the patient verbally at the time of exam. Electronically signed and approved by: Jose Dean D.O. Radiologis
== END | disposition home or self-care (01) ==
LOC: RADMAMWWP 10:45
PROVIDERS: ATTEND Obstetrics & Gynecology
DX: R92.8 Other abnormal and inconclusive findings on diagnostic imaging of breast (principal); Z78.0 Asymptomatic menopausal state; Z80.3 Family history of malignant neoplasm of breast
CPT/HCPCS: 77065; G0279; 77061

== ENCOUNTER → 2022-02-18 | Day surgery (SDC) | payer MEDICARE ==
[2022-02-18 10:18] VITALS: RESP 16; TEMP 98.2
[2022-02-18 11:03] VITALS: BP 140/77; PULSE 76
== END ==
LOC: RADMAMWWP 09:52
PROVIDERS: ATTEND Surgery
DX: D24.1 Benign neoplasm of right breast (principal); N60.11 Diffuse cystic mastopathy of right breast; N62 Hypertrophy of breast; R92.0 Mammographic microcalcification found on diagnostic imaging of breast; Z79.82 Long term (current) use of aspirin; Z79.899 Other long term (current) drug therapy; Z79.01 Long term (current) use of anticoagulants; Z79.890 Hormone replacement therapy; Z87.891 Personal history of nicotine dependence; Z82.49 Family history of ischemic heart disease and other diseases of the circulatory system; Z81.8 Family history of other mental and behavioral disorders
CPT/HCPCS: 88305; 19081; A4648; J2001

== ENCOUNTER → 2022-07-22 | Outpatient (CLI) | payer MEDICARE ==
[2022-07-22 22:26] LABS: ALT 15 U/L (8-44); AST 22 U/L (13-35); African American GFR (CKD) 67.3 (60.0-200.0); Albumin 4.4 g/dL (3.8-4.9); Albumin/Globulin Ratio 1.93 (1.60-3.17); Alkaline Phosphatase 145 U/L (41-126); BUN/Creat Ratio 26.38 Ratio (12.00-20.00); Blood Urea Nitrogen 25.4 mg/dL (9.0-27.0); Calcium 9.2 mg/dL (8.7-10.3); Carbon Dioxide 21.8 mmol/L (20.0-27.5); Chloride 109 mmol/L (96-109); Chol/HDL Ratio 2.47 Ratio; Globulin 2.3 g/dL (1.6-3.3); Glucose 96 mg/dL (70-110); LDL Cholesterol,Calculated 68.4 mg/dL (0.0-131.0); Potassium 4.6 mmol/L (3.5-5.5); Sodium 142 mmol/L (135-145); Total Protein 6.7 g/dL (6.2-8.2); VLDL Calculation 14.44 mg/dL (5.00-40.00)
== END | disposition home or self-care (01) ==
LOC: LABWHC1 11:17
PROVIDERS: ATTEND Nurse Practitioner Adult Health
DX: E78.2 Mixed hyperlipidemia (principal); I10 Essential (primary) hypertension
CPT/HCPCS: 36415; 80053; 80061

== ENCOUNTER 2022-08-06 07:24 | Day surgery (SDC) | payer MEDICARE ==
[~2022-08-06 07:24] MED LIST: ALPRAZolam 0.25 MG TAB PO PRN; ALPRAZolam 0.5 MG TAB PO PRN; ASPIRIN 325 MG TAB PO STA; ATORVASTATIN 80 MG TAB PO STA; HEPARIN SODIUM,PORCINE 10,000 UNIT in SODIUM CHLORIDE 0.9% 1,000 ML IRRIGATION PRN; HEPARIN SODIUM,PORCINE 2,500 UNIT in SODIUM CHLORIDE 0.9% 250 ML IRRIGATION PRN; NITROGLYCERIN SL TABS 0.4 MG TAB SUBLINGUAL PRN; SODIUM CHLORIDE 0.9% 1,000 ML in EMPTY BAG 1 BAG IV ONE
[2022-08-06] MEDS ORDERED: SODIUM CHLORIDE 0.9% 1,000 ML IV ONE (07:51)
[2022-08-06 07:56] VITALS: BP 143/65; PULSE 82; RESP 18; TEMP 98.4
[2022-08-06 08:18] LABS: Anisocytosis Slight; Basophils % (A) 0 %; Eosinophils # (A) 0.1 k/uL (0-0.7); Eosinophils % (A) 1 %; Hypochromasia Marked; Lymphocytes # (A) 0.6 k/uL (1.0-4.8); Lymphocytes % (A) 10 %; MCH 16.2 pg (25.0-35.0); MCHC 26.3 g/dL (31.0-37.0); MCV 61.8 fL (80.0-100.0); Microcytosis Marked; Monocytes # (A) 0.2 k/uL (0-1.0); Monocytes % (A) 4 %; Neutrophils # (A) 4.9 k/uL (1.3-7.7); Neutrophils % (A) 82 %; Platelet Count 350 k/uL (150-450); Poikilocytosis Slight; RBC 3.56 m/uL (3.80-5.40); RDW 18.9 % (11.5-15.5); WBC 5.9 k/uL (3.8-10.6)
[2022-08-06 08:22] LABS: HGB 5.8 gm/dL (11.4-16.0)
[2022-08-06 08:45] LABS: Anisocytosis Slight; HCT 20.1 % (34.0-46.0); Hypochromasia Marked; MCH 16.4 pg (25.0-35.0); MCHC 26.1 g/dL (31.0-37.0); MCV 62.6 fL (80.0-100.0); Mean Platelet Volume 9.6; Microcytosis Marked; Platelet Count 292 k/uL (150-450); Poikilocytosis Slight; RBC 3.22 m/uL (3.80-5.40); RDW 19.1 % (11.5-15.5); WBC 4.9 k/uL (3.8-10.6)
--- NOTE | 2022-08-06 08:48 | P.PN ---
Progress Note - Text Progress Note Date: 08/06/22 The patient was scheduled to undergo cardiac catheterization because of her worsening dyspnea, she continues to be dyspneic but she has no chest discomfort. On her lab data she was noted to have a hemoglobin of 5.8 with evidence of hypochromic microcytic anemia. She has no associated gross bleeding or change in the color of the stool according to her. She has underwent colonoscopy by Dr. Costa about 6 years ago and according to her no abnormalities were noted. Her physical examination Lungs clear Heart: Regular rate and rhythm S1-S2 no S3 was a systolic murmur Abdomen: Soft nontender positive sounds Extremities: No edema I discussed her case with her and her , it was discussed with Dr. Yanes in the emergency room. Patient will be transferred to the emergency room to undergo workup for her severe anemia and guide her treatment. Cardiac catheterization was canceled at this time pending her progress.
[2022-08-06 08:51] LABS: HGB 5.3 gm/dL (11.4-16.0)
== END 2022-08-06 08:51 | disposition other institution (70) ==
LOC: CATHCVL 07:24
PROVIDERS: ATTEND Internal Medicine Interventional Cardiology
DX: R06.02 Shortness of breath (principal); I25.10 Atherosclerotic heart disease of native coronary artery without angina pectoris
CPT/HCPCS: 85025; 85027

== ENCOUNTER 2022-08-06 09:06 | Observation (INO) | payer MEDICARE ==
[2022-08-06] MEDS ORDERED: SODIUM CHLORIDE 0.9% 500 ML 500 ML IV STA (09:19)
--- NOTE | 2022-08-06 09:25 | ED ---
General Adult HPI - General Chief complaint: Recheck/Abnormal Lab/Rx Stated complaint: low HGB Time Seen by Provider: 08/06/22 09:08 Source: patient, Caregiver Mode of arrival: wheelchair Limitations: no limitations - History of Present Illness Initial comments: Patient at hospital today to have heart catheterization for shortness of breath ongoing for the past 4 months. She was found to have a hemoglobin of 5.3 and sent to the emergency room for evaluation. She denies any abnormal bleeding. Does not take any blood thinners. Denies any abdominal pain. Denies any rectal bleeding. States that she has been having this shortness of breath for the past 4 months. Had a colonoscopy 6 months ago and was unremarkable. Is a previous smoker. -: month(s) (4) Severity scale (1-10): 0 Associated Symptoms: headaches, shortness of breath - Related Data Home Medications Medication Instructions Recorded Confirmed Levothyroxine Sodium [Synthroid] 100 mcg PO DAILY 08/18/17 08/06/22 Vilazodone HCl [Viibryd] 40 mg PO DAILY 02/04/22 08/06/22 buPROPion XL [Wellbutrin XL] 150 mg PO TID 02/04/22 08/06/22 lisinopriL [Zestril] 10 mg PO DAILY 02/04/22 08/06/22 Nitroglycerin Sl Tabs [Nitrostat] 0.4 mg SUBLINGUAL Q5M PRN 08/04/22 08/06/22 Omeprazole [PriLOSEC] 20 mg PO AC-BRKFST 08/04/22 08/06/22 Atorvastatin [Lipitor] 80 mg PO DAILY@1500 08/06/22 08/06/22 Previous Rx's Medication Instructions Recorded Aspirin 81 mg PO DAILY #0 chew 08/20/17 Spironolactone [Aldactone] 25 mg PO DAILY #90 tab 08/20/17 carvediloL [Coreg] 3.125 mg PO BID-W/MEALS #180 tab 08/20/17 Allergies Allergy/AdvReac Type Severity Reaction Status Date / Time No Known Allergies Allergy Verified 08/06/22 11:05 Review of Systems ROS Statement: Those systems with pertinent positive or pertinent negative responses have been documented in the HPI. ROS Other: All systems not noted in ROS Statement are negative. Past Medical History Past Medical History: Coronary Artery Disease (CAD), COPD, GERD/Reflux, Hyperlipidemia, Hypertension, Myocardial Infarction ([place]), Syncope, Thyroid Disorder Additional Past Medical History / Comment(s): diverticular dx, hemorrhoids, overactive bladder, hypothyroid, migraines, increasing SOB w/minimal exertion, mild COPD per pt. Last Myocardial Infarction Date:: 08-18-17 History of Any Multi-Drug Resistant Organisms: None Reported Past Surgical History: Appendectomy, Heart Catheterization With Stent, Hysterectomy, Tonsillectomy Additional Past Surgical History / Comment(s): Multiple bilateral breast benign bxs, colonoscopies/polypectomies, thyroid nodule removed Past Anesthesia/Blood Transfusion Reactions: No Reported Reaction Date of Last Stent Placement:: 08-18-17 Past Psychological History: Depression Smoking Status: Former smoker Past Alcohol Use History: None Reported Past Drug Use History: None Reported - Past Family History Mother Additional Family Medical History / Comment(s): Depression Father Family Medical History: Coronary Artery Disease (CAD) General Exam Limitations: no limitations General appearance: alert, in no apparent distress Head exam: Present: atraumatic Eye exam: Present: other (Pale conjunctiva). Absent: scleral icterus, con junctival injection, periorbital swelling ENT exam: Present: mucous membranes moist Respiratory exam: Present: normal lung sounds bilaterally. Absent: respiratory distress, wheezes, rales, rhonchi, stridor, chest wall tenderness, accessory muscle use Cardiovascular Exam: Present: regular rate GI/Abdominal exam: Present: soft. Absent: distended, tenderness, rigid Back exam: Present: normal inspection, full ROM. Absent: tenderness, CVA tenderness (R), CVA tenderness (L), rash noted Neurological exam: Present: alert, oriented X3 Psychiatric exam: Present: normal affect, normal mood Skin exam: Present: warm, dry, pallor. Absent: cyanosis, diaphoretic, petechiae, mottled Course Vital Signs 08/06/22 08/06/22 08/06/22 09:07 09:12 11:25 Temperature 97.8 F 97.8 F Pulse Rate 77 77 Respiratory 18 18 18 Rate Blood Pressure 140/68 138/66 O2 Sat by Pulse 98 99 Oximetry 08/06/22 08/06/22 08/06/22 11:45 12:00 12:15 Temperature 98.2 F 98.1 F 98.0 F Pulse Rate 73 85 76 Respiratory 18 18 18 Rate Blood Pressure 123/56 127/83 127/83 O2 Sat by Pulse 98 96 97 Oximetry 08/06/22 12:30 Temperature 98.1 F Pulse Rate 75 Respiratory 18 Rate Blood Pressure 91/70 O2 Sat by Pulse 99 Oximetry EKG Findings - EKG Results: EKG: interpreted by ERMD (Ventricular rate 82, NC interval 0.146, QRS 0.88, QTc 0.441; normal axis), sinus rhythm, not changed from: (04/19/19) Medical Decision Making - Medical Decision Making Patient presents to the ER with a hemoglobin of 5.8 and 5.3 both drawn today. Hemodynamically stable. Occult blood negative. 2 units of blood given in the emergency room. Guaiac is negative. Calcium 7.9, patient was given Tums. She will be placed in observation for symptomatic anemia. Pulmonology and cardiology placed on consult per Dr. Sarabia Was pt. sent in by a medical professional or institution? @ -Yes, sent by Dr. Henry cardiology Did you speak to anyone other than the patient for history? @ no Did you review nursing and triage notes? @ yes I agree Were old charts reviewed? @ -previous EKG's and labs Differential Diagnosis? @ -[chest pain, altered mental status abdominal pain women, abdominal pain men, vaginal bleeding, weakness, fever, dyspnea, syncope, headache, dizziness, GI bleed, back pain, seizure] EKG interpreted by me (3pts min.)? @ -[none] X-rays interpreted by me (1pt min.)? @ -[none] CT interpreted by me (1pt min.)? @ -[none] U/S interpreted by me (1pt. min.)? @ -[none] What testing was considered but not performed? (CT, X-rays, U/S, labs)? Why? @ [CT, X-rays, U/S, labs? Why?] What meds were considered but not given? Why? @ -[none] Did you discuss the management of the patient with other professionals? @ -[professionals i.e. Dr, PA, CORRESPONDENCE CLERK, Lab, RT, Psych Nurse, Meter Reader Inspector, Supervisor Whipped Topping, Teacher, Stock Sheets Cleaner Inspector, case packer? Give summary] Did you reconcile home meds? @ -[none] Was smoking cessation discussed for >3mins.? @ -[none] Was critical care preformed (if so, how long)? @ -[none] Were there social determinants of health that impacted care today? How? (Homelessness, low income, unemployed, alcoholism, drug addiction, transportation, low edu. Level, literacy, decrease access to med. care, correction, rehab)? @ -[Homelessness, low income, unemployed, alcoholism, drug addiction, transportation, low edu. Level, literacy, decrease access to med. care, correction, rehab?] Was there de-escalation of care discussed even if they declined? (Discuss DNR or withdrawal of care, Hospice)? @ -[Discuss DNR or withdrawal of care, Hospice?] What co-morbidities impacted this encounter? (DM, HTN, Smoking, COPD, CAD, Cancer, CVA, Hep., AIDS, mental health diagnosis, sleep apnea, morbid obesity)? @ -[DM, HTN, Smoking, COPD, CAD, Cancer, CVA, Hep., AIDS, mental health diagnosis, sleep apnea, morbid obesity?] Was patient admitted / discharged? @ -[hospital course] Undiagnosed new problem with uncertain prognosis? @ -[none] Drug Therapy requiring intensive monitoring for toxicity (Heparin, Nitro, Insulin, Cardizem)? @ -[none] Were any procedures done? @ -[none] Diagnosis/symptom? @ -[default] Acute, or Chronic, or Acute on Chronic? @ -[default] Uncomplicated (without systemic symptoms) or Complicated (systemic symptoms)? @ -[default] Side effects of treatment? @ -[none] Exacerbation, Progression, or Severe Exacerbation] @ -[no] Poses a threat to life or bodily function? @ -[no] - Lab Data Result diagrams: 08/06/22 09:23 Lab Results 08/06/22 08/06/22 08/06/22 Range/Units 09:15 09:20 09:23 PT (9.0-12.0) sec INR (<1.2) APTT (22.0-30.0) sec Sodium (137-145) mmol/L Potassium (3.5-5.1) mmol/L Chloride (98-107) mmol/L Carbon Dioxide (22-30) mmol/L Anion Gap mmol/L BUN (7-17) mg/dL Creatinine (0.52-1.04) mg/dL Est GFR (CKD-EPI)AfAm (>60 ml/min/1.73 sqM) Est GFR (CKD-EPI)NonAf (>60 ml/min/1.73 sqM) Glucose (74-99) mg/dL Calcium (8.4-10.2) mg/dL Magnesium (1.6-2.3) mg/dL Total Bilirubin (0.2-1.3) mg/dL AST (14-36) U/L ALT (4-34) U/L Alkaline Phosphatase (38-126) U/L Troponin I (0.000-0.034) ng/mL Total Protein (6.3-8.2) g/dL Albumin (3.5-5.0) g/dL Stool Occult Blood Negative (Negative) Blood Type O Positive Blood Type Confirm O Positive Blood Type Recheck No Previous Record Bld Type Recheck Status CABO Indicated Antibody Screen NEGATIVE Crossmatch See Detail Spec Expiration Date 08/09/2022 - 231408/06/22 08/06/22 08/06/22 Range/Units 09:23 09:23 09:23 PT 9.7 (9.0-12.0) sec INR 0.9 (<1.2) APTT 20.5 L (22.0-30.0) sec Sodium 138 (137-145) mmol/L Potassium 3.6 (3.5-5.1) mmol/L Chloride 109 H (98-107) mmol/L Carbon Dioxide 22 (22-30) mmol/L Anion Gap 7 mmol/L BUN 20 H (7-17) mg/dL Creatinine 0.90 (0.52-1.04) mg/dL Est GFR (CKD-EPI)AfAm 73 (>60 ml/min/1.73 sqM) Est GFR (CKD-EPI)NonAf 64 (>60 ml/min/1.73 sqM) Glucose 92 (74-99) mg/dL Calcium 7.9 L (8.4-10.2) mg/dL Magnesium 1.8 (1.6-2.3) mg/dL Total Bilirubin 1.2 (0.2-1.3) mg/dL AST 25 (14-36) U/L ALT 12 (4-34) U/L Alkaline Phosphatase 114 (38-126) U/L Troponin I <0.012 (0.000-0.034) ng/mL Total Protein 6.1 L (6.3-8.2) g/dL Albumin 3.7 (3.5-5.0) g/dL Stool Occult Blood (Negative) Blood Type Blood Type Confirm Blood Type Recheck Bld Type Recheck Status Antibody Screen Crossmatch Spec Expiration Date Disposition Clinical Impression: Symptomatic anemia, Hypocalcemia Disposition: ADMITTED IP TO THIS HOSP Decision Date: 08/06/22 Decision Time: 10:07
[2022-08-06] MEDS ORDERED: ACETAMINOPHEN TAB 500 MG TAB PO STA (10:07)
[2022-08-06 10:11] LABS: Albumin 3.7 g/dL (3.5-5.0); Calcium 7.9 mg/dL (8.4-10.2); Magnesium 1.8 mg/dL (1.6-2.3); Potassium 3.6 mmol/L (3.5-5.1); Total Bilirubin 1.2 mg/dL (0.2-1.3); Total Protein 6.1 g/dL (6.3-8.2)
[2022-08-06 10:22] LABS: INR 0.9 (<1.2); Prothrombin Time 9.7 sec (9.0-12.0)
[2022-08-06 10:24] LABS: Partial Thromboplastin Time 20.5 sec (22.0-30.0)
[2022-08-06] MEDS ORDERED: NALOXONE 0.4 MG/ML 1 ML VIAL IV PRN (10:33)
[2022-08-06] MEDS ORDERED: CALCIUM CARBONATE 500 MG CHEWABLE PO PRN (12:01)
[2022-08-06] MEDS ORDERED: ATORVASTATIN 80 MG TAB PO SCH (15:00)
--- NOTE | 2022-08-06 16:31 | P.CNPUL ---
History of Present Illness Consult date: 08/06/22 Requesting physician: Gabriel Sarabia Jr Reason for consult: dyspnea Chief complaint: Shortness of breath History of present illness: This is a very pleasant 72-year-old female patient with a known history of hypothyroidism, hypertension, hyperlipidemia, depression, former smoker of approximately one pack per day for 40 years however quit 5 years ago when she had a myocardial infarction stent placement. She had been having issues with shortness of breath for past 3-4 months. She had been seen in our office by Dr. Castillo. Full pulmonary function testing revealed a FEV1 79% of predicted. Very mild and minimal COPD picture. He believed her shortness of breath may be cardiac related or related to deconditioning. She was subsequently seen and evaluated by cardiology. She had undergone further testing and was brought in today for an elective heart catheterization. However her preop lab work revealed a hemoglobin of 5.3. She was referred to the emergency room and subsequently admitted to the regular medical floor. She hadn't noted any bleeding. No dark stools. No melena or emesis. She is not on any blood thinners. She had a colonoscopy present 6 months ago that was unremarkable. We're consulted today for her shortness of breath. She is currently sitting up in bed. Awake and alert in no acute distress. She is maintaining good O2 saturations in the 90s on room air. No cough or congestion. No fever chills.. Comfortable at rest. White count 4.9. Hemoglobin 5.3. Platelets 292. INR 0.9. Sodium 138. Potassium 3.6. Chloride 109. BUN 20. Creatinine 0.90. C alcium 7.9. Troponin negative 1. She is receiving her first of 2 units of packed red blood cells. Review of Systems REVIEW OF SYSTEMS: CONSTITUTIONAL: Denies any recent significant weight loss or weight gain. EYES: Denies change in vision. EARS, NOSE, MOUTH, THROAT: Denies headaches, denies sore throat. CARDIOVASCULAR: Denies chest pain, palpitations or syncopal episodes. RESPIRATORY: Positive for shortness of breath, no cough, congestion or hemoptysis. GASTROINTESTINAL: Denies change in appetite, denies abdominal pain GENITOURINARY: Denies hematuria, denies infections. MUSKULOSKELETAL: Denies pain, denies swelling. INTEGUMENTARY: Denies rash, denies eczema. NEUROLOGICAL: Denies recent memory loss, no recent seizure activity. PSYCHIATRIC: Denies anxiety, denies depression. HEMATOLOGIC/LYMPHATIC: Denies anemia, denies enlarged lymph nodes. Past Medical History Past Medical History: Coronary Artery Disease (CAD), COPD, GERD/Reflux, Hyperlipidemia, Hypertension, Myocardial Infarction ([place]), Syncope, Thyroid Disorder Additional Past Medical History / Comment(s): diverticular dx, hemorrhoids, overactive bladder, hypothyroid, migraines, increasing SOB w/minimal exertion, mild COPD per pt. Last Myocardial Infarction Date:: 08-18-17 History of Any Multi-Drug Resistant Organisms: None Reported Past Surgical History: Appendectomy, Heart Catheterization With Stent, Hysterectomy, Tonsillectomy Additional Past Surgical History / Comment(s): Multiple bilateral breast benign bxs, colonoscopies/polypectomies, thyroid nodule removed Past Anesthesia/Blood Transfusion Reactions: No Reported Reaction Date of Last Stent Placement:: 08-18-17 Past Psychological History: Depression Smoking Status: Former smoker Past Alcohol Use History: None Reported Past Drug Use History: None Reported - Past Family History Mother Additional Family Medical History / Comment(s): Depression Father Family Medical History: Coronary Artery Disease (CAD) Medications and Allergies Home Medications Medication Instructions Recorded Confirmed Type Levothyroxine Sodium [Synthroid] 100 mcg PO DAILY 08/18/17 08/06/22 History Aspirin 81 mg PO DAILY #0 chew 08/20/17 08/06/22 Rx Spironolactone [Aldactone] 25 mg PO DAILY #90 tab 08/20/17 08/06/22 Rx carvediloL [Coreg] 3.125 mg PO BID-W/MEALS #180 tab 08/20/17 08/06/22 Rx Vilazodone HCl [Viibryd] 40 mg PO DAILY 02/04/22 08/06/22 History buPROPion XL [Wellbutrin XL] 150 mg PO TID 02/04/22 08/06/22 History lisinopriL [Zestril] 10 mg PO DAILY 02/04/22 08/06/22 History Nitroglycerin Sl Tabs [Nitrostat] 0.4 mg SUBLINGUAL Q5M PRN 08/04/22 08/06/22 History Omeprazole [PriLOSEC] 20 mg PO AC-BRKFST 08/04/22 08/06/22 History Atorvastatin [Lipitor] 80 mg PO DAILY@1500 08/06/22 08/06/22 History Allergies Allergy/AdvReac Type Severity Reaction Status Date / Time No Known Allergies Allergy Verified 08/06/22 11:05 Physical Exam Vitals: Vital Signs Temp Pulse Pulse Resp BP BP Pulse Ox 08/06/22 16:10 98.7 F 80 16 132/72 08/06/22 15:00 98.2 F 77 16 137/67 98 08/06/22 13:30 98.3 F 79 16 124/59 97 08/06/22 12:30 98.1 F 75 18 91/70 99 08/06/22 12:15 98.0 F 76 18 127/83 97 08/06/22 12:00 98.1 F 85 18 127/83 96 08/06/22 11:45 98.2 F 73 18 123/56 98 08/06/22 11:25 97.8 F 77 18 138/66 99 08/06/22 09:12 18 08/06/22 09:07 97.8 F 77 18 140/68 98 Intake and Output 08/06/22 08/06/22 08/06/22 06:59 14:59 22:59 Intake Total 310 Balance 310 Intake: Blood Product 310 Rc As-1 Unit 310 [id number] Other: Weight 72.575 kg GENERAL EXAM: Alert, very pleasant 72-year-old female, on room air, comfortable in no apparent distress. HEAD: Normocephalic. EYES: Normal reaction of pupils, equal size. NOSE: Clear with pink turbinates. THROAT: No erythema or exudates. NECK: No masses, no JVD. CHEST: No chest wall deformity. LUNGS: Equal air entry with no crackles, wheeze, rhonchi or dullness. CVS: S1 and S2 normal with no audible murmur, regular rhythm. ABDOMEN: No hepatosplenomegaly, normal bowel sounds, no guarding or rigidity. SPINE: No scoliosis or deformity SKIN: No rashes CENTRAL NERVOUS SYSTEM: No focal deficits, tone is normal in all 4 extremities. EXTREMITIES: There is no peripheral edema. No clubbing, no cyanosis. Peripheral pulses are intact. Results - Laboratory Findings CBC and BMP: 08/06/22 09:23 PT/INR, D-dimer PT 9.7 sec (9.0-12.0) 08/06/22 09:23 INR 0.9 (<1.2) 08/06/22 09:23 Abnormal lab findings: Abnormal Labs 08/06/22 08/06/22 08/06/22 09:15 09:23 09:23 APTT 20.5 L Chloride 109 H BUN 20 H Calcium 7.9 L Total Protein 6.1 L Crossmatch See Detail Assessment and Plan Assessment: Dyspnea secondary to acute anemia in a patient found if hemoglobin of 5.3, u nclear etiology states normal colonoscopy 6 months ago Moderate to large size hiatal hernia Coronary disease with previous cardiac infarction and stent placement 5 years ago History of chronic tobacco dependence of 40 years however quit 5 years ago Mild chronic obstructive pulmonary disease with an FEV1 value 79% of predicted. Recent chest x-ray revealed no acute pulmonary process. Hypertension Hyperlipidemia Hypothyroidism History of depression Plan: The patient was seen and evaluated Currently stable and on room air Recent chest x-ray, pulmonary function testing, medications and labs reviewed Dyspnea at this time most likely related to the anemia Only mild chronic obstructive pulmonary disease To receive 2 units of packed red blood cells Continue anemia workup Continue cardiac workup when stable We will continue to follow and make further recommendations based on her clinic al status I have personally seen and examined the patient, performed the documentation and the assessment and plan as written. Number of minutes spent on the visit: 20.
[2022-08-06] MEDS: ACETAMINOPHEN TAB 325 MG TAB PO PRN ×2 (16:34→20:01)
[2022-08-06] MEDS: buPROPion XL 150 MG TAB.ER.24H PO SCH ×2 (16:35→20:03)
[2022-08-06] MEDS: carvediloL 3.125 MG TAB PO SCH (17:21)
[2022-08-06] MEDS ORDERED: ONDANSETRON 4 MG/2 ML VIAL IVP PRN (18:54)
[2022-08-06] MEDS ORDERED: guaiFENesin-Coden 100-10MG/5ML 10 ML CUP PO PRN ×2 (20:47→21:38)
[2022-08-07] MEDS: ACETAMINOPHEN TAB 325 MG TAB PO PRN ×2 (04:23→08:05)
[2022-08-07] MEDS ORDERED: LEVOTHYROXINE 100 MCG TAB PO SCH (06:30)
[2022-08-07] MEDS ORDERED: SODIUM CHLORIDE 0.9% 500 ML 500 ML IV ONE (06:33)
[2022-08-07] MEDS ORDERED: PANTOPRAZOLE 40 MG TABLET PO SCH (07:30)
[2022-08-07 07:38] VITALS: BP 115/63; PULSE 70; RESP 18; TEMP 98.2
[2022-08-07] MEDS: carvediloL 3.125 MG TAB PO SCH (08:05)
[2022-08-07] MEDS: buPROPion XL 150 MG TAB.ER.24H PO SCH (08:05)
--- NOTE | 2022-08-07 08:33 | P.PN ---
Subjective Progress Note Date: 08/07/22 Principal diagnosis: Shortness of breath The patient is a pleasant 72-year-old female patient with a past medical history significant for coronary artery disease and prior stenting as well as hypertension and dyslipidemia who was seen recently in the office by Dr. Barrera for further evaluation of symptoms of shortness of breath and the chest discomfort concerning for angina and she scheduled to undergo a heart catheterization but she was found to be severely anemic with a hemoglobin around 5. The heart catheterization was canceled and the patient was admitted for further investigation. She received 2 units of packed RBC yesterday. August 072019 The patient was seen and evaluated this morning. She is feeling at her after she received the blow. She reports no pain in the chest at this point and no shortness of breath. We are in process of getting a hemoglobin this morning. If the hemoglobin is stable she will eventually can be discharged home. Objective - Vital Signs Vital signs: Vital Signs Temp 98.2 F 08/07/22 07:00 Pulse 70 08/07/22 07:00 Resp 18 08/07/22 07:00 BP 115/63 08/07/22 07:00 Pulse Ox 96 08/07/22 07:00 FiO2 Intake & Output 08/06/22 08/07/22 08/07/22 18:59 06:59 18:59 Intake Total 860 Balance 860 Weight 72.575 kg Intake: Oral 240 Blood Product 620 Rc As-1 Unit 310 [id number] Rc As-1 Unit 310 [id number] Other: # Voids 1 1 - Constitutional General appearance: Present: no acute distress - Respiratory Respiratory: bilateral: CTA - Cardiovascular Rhythm: regular - Labs CBC & Chem 7: 08/06/22 09:23 Labs: Abnormal Lab Results - Last 24 Hours (Table) 08/06/22 08/06/22 08/06/22 Range/Units 09:15 09:23 09:23 APTT 20.5 L (22.0-30.0) sec Chloride 109 H (98-107) mmol/L BUN 20 H (7-17) mg/dL Calcium 7.9 L (8.4-10.2) mg/dL Total Protein 6.1 L (6.3-8.2) g/dL Crossmatch See Detail Assessment and Plan Assessment: Assessment Anemia of unknown etiology Coronary artery disease A potential Dyslipidemia Plan The patient received blood transfusion She potentially can be discharged home if the hemoglobin is stable. We are in process of getting a CBC this morning
[2022-08-07] MEDS ORDERED: NON FORMULARY DRUG (Vilazodone Hcl [Viibryd] 40 MG Tablet) PO SCH (09:00)
[2022-08-07] MEDS ORDERED: lisinopriL 10 MG TAB PO SCH (09:00)
[2022-08-07] MEDS ORDERED: SPIRONOLACTONE 25 MG TAB PO SCH (09:00)
[2022-08-07 09:50] LABS: Anisocytosis Moderate; HCT 27.3 % (34.0-46.0); Hypochromasia Marked; MCHC 29.9 g/dL (31.0-37.0); Mean Platelet Volume 7.8; Microcytosis Marked; Platelet Count 233 k/uL (150-450); Poikilocytosis Marked; RBC 3.89 m/uL (3.80-5.40); RDW 20.9 % (11.5-15.5); WBC 5.3 k/uL (3.8-10.6)
[2022-08-07 09:53] LABS: HGB 8.2 gm/dL (11.4-16.0); MCV 70.2 fL (80.0-100.0)
[2022-08-07 10:51] LABS: Basophils # (M) 0.05 k/uL (0-0.2); Lymphocytes # (M) 0.69 k/uL (1.0-4.8); Mixed Population RBC Present; Monocytes # (M) 0.32 k/uL (0-1.0); Neutrophils # (M) 4.24 k/uL (1.3-7.7); Neutrophils % (M) 80 %; Nucleated Red Blood Cells 0 /100 WBC (0-0); Total Cells Counted 100
--- NOTE | 2022-08-07 11:49 | P.HPIM ---
History of Present Illness H&P Date: 08/06/22 Chief Complaint: Shortness of breath and fatigue This is a very pleasant 72-year-old female well-known to my practice who was a heavy smoker in approximately 5 years ago quit smoking when she underwent angioplasty with stent placement. Patient also is been treated for hypertension dyslipidemia and hypothyroidism. She presented yesterday for elective cardiac catheterization and preoperative labs demonstrated a hemoglobin of 5.3 this was repeated and was found to be 5.0. The procedure was canceled patient was admitted for acute anemia subsequently transfused 2 units packed red cells her current hemoglobin is 8 and she is feeling better. She had a recent colonoscopy that was normal, and lab work 3 weeks ago was apparently within normal limits including her hemoglobin and hematocrit. . Review of Systems Constitutional: Reports fatigue Ears, nose, mouth and throat: Reports as per HPI Cardiovascular: Reports dyspnea on exertion, Reports high blood pressure, Reports lightheadedness, Reports shortness of breath Respiratory: Reports as per HPI Gastrointestinal: Reports as per HPI Genitourinary: Reports as per HPI Menstruation: Reports as per HPI, Reports postmenopausal Musculoskeletal: Reports as per HPI Integumentary: Reports as per HPI Neurological: Reports as per HPI Past Medical History Past Medical History: Coronary Artery Disease (CAD), COPD, GERD/Reflux, Hyperlipidemia, Hypertension, Myocardial Infarction ([place]), Syncope, Thyroid Disorder Additional Past Medical History / Comment(s): diverticular dx, hemorrhoids, overactive bladder, hypothyroid, migraines, increasing SOB w/minimal exertion, mild COPD per pt. Last Myocardial Infarction Date:: 08-18-17 History of Any Multi-Drug Resistant Organisms: None Reported Past Surgical History: Appendectomy, Heart Catheterization With Stent, Hysterectomy, Tonsillectomy Additional Past Surgical History / Comment(s): Multiple bilateral breast benign bxs, colonoscopies/polypectomies, thyroid nodule removed Past Anesthesia/Blood Transfusion Reactions: No Reported Reaction Date of Last Stent Placement:: 08-18-17 Past Psychological History: Depression Smoking Status: Former smoker Past Alcohol Use History: None Reported Past Drug Use History: None Reported - Past Family History Mother Additional Family Medical History / Comment(s): Depression Father Family Medical History: Coronary Artery Disease (CAD) Medications and Allergies Home Medications Medication Instructions Recorded Confirmed Type Levothyroxine Sodium [Synthroid] 100 mcg PO DAILY 08/18/17 08/06/22 History Aspirin 81 mg PO DAILY #0 chew 08/20/17 08/06/22 Rx Spironolactone [Aldactone] 25 mg PO DAILY #90 tab 08/20/17 08/06/22 Rx carvediloL [Coreg] 3.125 mg PO BID-W/MEALS #180 tab 08/20/17 08/06/22 Rx Vilazodone HCl [Viibryd] 40 mg PO DAILY 02/04/22 08/06/22 History buPROPion XL [Wellbutrin XL] 150 mg PO TID 02/04/22 08/06/22 History lisinopriL [Zestril] 10 mg PO DAILY 02/04/22 08/06/22 History Nitroglycerin Sl Tabs [Nitrostat] 0.4 mg SUBLINGUAL Q5M PRN 08/04/22 08/06/22 History Omeprazole [PriLOSEC] 20 mg PO AC-BRKFST 08/04/22 08/06/22 History Atorvastatin [Lipitor] 80 mg PO DAILY@1500 08/06/22 08/06/22 History Allergies Allergy/AdvReac Type Severity Reaction Status Date / Time No Known Allergies Allergy Verified 08/06/22 11:05 Physical Exam Osteopathic Statement: *. No significant issues noted on an osteopathic structural exam other than those noted in the History and Physical/Consult. Vitals: Vital Signs Temp Pulse Pulse Resp BP BP Pulse Ox 08/07/22 07:00 98.2 F 70 18 115/63 96 08/07/22 03:06 101.0 F H 85 17 127/64 95 08/06/22 19:30 101.0 F H 86 18 145/71 97 08/06/22 18:53 99.3 F 77 18 127/67 97 08/06/22 16:50 98.1 F 77 16 125/74 97 08/06/22 16:30 98.0 F 84 16 132/78 100 08/06/22 16:18 98.2 F 82 16 138/73 97 08/06/22 16:10 98.7 F 80 16 132/72 08/06/22 15:00 98.2 F 77 16 137/67 98 08/06/22 13:30 98.3 F 79 16 124/59 97 08/06/22 12:30 98.1 F 75 18 91/70 99 08/06/22 12:15 98.0 F 76 18 127/83 97 08/06/22 12:00 98.1 F 85 18 127/83 96 08/06/22 11:45 98.2 F 73 18 123/56 98 Intake and Output 08/06/22 08/07/22 08/07/22 22:59 06:59 14:59 Intake Total 310 120 Balance 310 120 Intake: Oral 120 Blood Product 310 Rc As-1 Unit 310 [id number] Other: # Voids 1 1 General: [Patient awake, alert and oriented times 3. Patient in no acute dis tress.] HEENT: [PERRL. EOMI. No pharyngeal erythema or exudate.] Neck: [No adenopathy.] Cardiac: [Heart regular in rate and rhythm. No S3. No S4. No clicks, rubs. No murmur.] Lungs: [Clear to auscultation bilaterally.] Abdomen: [No mass. No organomegaly. Bowel sounds presnt and normoactive in all 4 quadrants.] Extremes: [No edema no cyanosis no claudication normal pulses] : Normal female genitalia Musculoskeletal: [No joint erythema, edema or tenderness.] Skin: [No rash.] Neurologic: [No lateralizing deficits. CN II - XII grossly intact.] Lymphatic: [No adenopathy.] Results CBC & Chem 7: 08/07/22 09:18 08/06/22 09:23 Labs: Abnormal Lab Results - Last 24 Hours (Table) 08/06/22 08/07/22 Range/Units 09:15 09:18 Hgb 8.2 L D (11.4-16.0) gm/dL Hct 27.3 L (34.0-46.0) % MCV 70.2 L D (80.0-100.0) fL MCH 21.0 L (25.0-35.0) pg MCHC 29.9 L (31.0-37.0) g/dL RDW 20.9 H (11.5-15.5) % Lymphocytes # (Manual) 0.69 L (1.0-4.8) k/uL Crossmatch See Detail Assessment and Plan (1) Hypothyroidism Current Visit: Yes Status: Acute Code(s): E03.9 - HYPOTHYROIDISM, U NSPECIFIED SNOMED Code(s): 72876904 (2) Hypocalcemia Current Visit: Yes Status: Acute Code(s): E83.51 - HYPOCALCEMIA SNOMED Code(s): 9731081 (3) Symptomatic anemia Current Visit: Yes Status: Acute Code(s): D64.9 - ANEMIA, UNSPECIFIED SNO MED Code(s): 521046769 Plan: Elective cardiac catheterization was canceled Patient was transfused 2 units packed red cells Hemoglobin and hematocrit is stable at this time Patient's COPD is stable at this time Will draw TSH before patient leaves the hospital We will continue anemia workup as an outpatient Will also continue cardiac evaluation as an outpatient Continue regular follow-ups with pulmonary medicine as scheduled Anticipate discharging patient home today Time with Patient: Greater than 30
--- NOTE | 2022-08-07 11:51 | P.DS ---
Providers Date of admission: 08/06/22 10:25 Expected date of discharge: 08/07/22 Attending physician: Gabriel Sarabia Consults: 08/06/22 10:33 Consult Physician Routine Consulting Provider: Matt Garcia Consult Reason/Comments: COPD Do you want consulting provider notified?: Yes, Notify in am Consult Physician Routine Consulting Provider: Kieran Barrera Consult Reason/Comments: Symptomatic anemia, shortness of breath Do you want consulting provider notified?: Yes, Notify in am Primary care physician: Gabriel Sarabia - Discharge Diagnosis(es) (1) Hypothyroidism Current Visit: Yes Status: Acute (2) Hypocalcemia Current Visit: Yes Status: Acute (3) Symptomatic anemia Current Visit: Yes Status: Acute Pertinent Studies: Will obtain TSH before patient leaves hospital will follow up as outpatient Patient Condition at Discharge: Stable Plan - Discharge Summary Discharge Rx Participant: Yes New Discharge Prescriptions: No Action Levothyroxine Sodium [Synthroid] 100 mcg PO DAILY Aspirin 81 mg PO DAILY #0 chew carvediloL [Coreg] 3.125 mg PO BID-W/MEALS #180 tab Spironolactone [Aldactone] 25 mg PO DAILY #90 tab lisinopriL [Zestril] 10 mg PO DAILY buPROPion XL [Wellbutrin XL] 150 mg PO TID Vilazodone HCl [Viibryd] 40 mg PO DAILY Omeprazole [PriLOSEC] 20 mg PO AC-BRKFST Nitroglycerin Sl Tabs [Nitrostat] 0.4 mg SUBLINGUAL Q5M PRN PRN Reason: Chest Pain Atorvastatin [Lipitor] 80 mg PO DAILY@1500 Discharge Medication List Levothyroxine Sodium [Synthroid] 100 mcg PO DAILY 08/18/17 [History] Aspirin 81 mg PO DAILY #0 chew 08/20/17 [Rx] Spironolactone [Aldactone] 25 mg PO DAILY #90 tab 08/20/17 [Rx] carvediloL [Coreg] 3.125 mg PO BID-W/MEALS #180 tab 08/20/17 [Rx] Vilazodone HCl [Viibryd] 40 mg PO DAILY 02/04/22 [History] buPROPion XL [Wellbutrin XL] 150 mg PO TID 02/04/22 [History] lisinopriL [Zestril] 10 mg PO DAILY 02/04/22 [History] Nitroglycerin Sl Tabs [Nitrostat] 0.4 mg SUBLINGUAL Q5M PRN 08/04/22 [History] Omeprazole [PriLOSEC] 20 mg PO AC-BRKFST 08/04/22 [History] Atorvastatin [Lipitor] 80 mg PO DAILY@1500 08/06/22 [History] Follow up Appointment(s)/Referral(s): Gabriel Sarabia Jr, [Primary Care Provider] - 1-2 days
== END 2022-08-07 12:49 | disposition home or self-care (01) ==
LOC: EC 09:06 → 6NMEDSUR 10:25
PROVIDERS: ADMIT Family Medicine; ATTEND Family Medicine
DX: D64.9 Anemia, unspecified (principal); E83.51 Hypocalcemia; K44.9 Diaphragmatic hernia without obstruction or gangrene; I25.10 Atherosclerotic heart disease of native coronary artery without angina pectoris; E03.9 Hypothyroidism, unspecified; J44.9 Chronic obstructive pulmonary disease, unspecified; K21.9 Gastro-esophageal reflux disease without esophagitis; E78.5 Hyperlipidemia, unspecified; I10 Essential (primary) hypertension; I25.2 Old myocardial infarction; F32.A Depression, unspecified; N32.81 Overactive bladder; Z95.5 Presence of coronary angioplasty implant and graft; Z90.710 Acquired absence of both cervix and uterus; Z79.890 Hormone replacement therapy; Z79.899 Other long term (current) drug therapy; Z79.82 Long term (current) use of aspirin; Z81.8 Family history of other mental and behavioral disorders; Z82.49 Family history of ischemic heart disease and other diseases of the circulatory system; Z87.891 Personal history of nicotine dependence
CPT/HCPCS: 36430; 99285; 36415; 86900; 86901; 80053; 83735; 84443; 84484; 85025; 85610; 85730; 86850; 86920; 82272; G0378 ×2; P9016

== ENCOUNTER → 2022-08-19 | Outpatient (CLI) | payer MEDICARE ==
[2022-08-19 18:44] LABS: HCT 34.7 % (37.2-46.3); HGB 9.4 g/dL (12.0-15.0); MCH 19.9 pg (27.0-32.0); MCHC 27.1 g/dL (32.0-37.0); MCV 73.5 fL (80.0-97.0); NRBC Per 100 WBC 0 /100 WBCS (0.0-0.0); Platelet Count 632 X 10*3/uL (140-440); RBC 4.72 X 10*6/uL (4.10-5.20); RDW 28.6 % (11.5-14.5); WBC 6.06 X 10*3/uL (4.50-10.00)
[2022-08-19 19:06] LABS: African American GFR (CKD) 70.8 (60.0-200.0); Albumin/Globulin Ratio 1.81 (1.60-3.17); Anion Gap 9.6 mmol/L (10.00-18.00); BUN/Creat Ratio 20.48 Ratio (12.00-20.00); Blood Urea Nitrogen 18.9 mg/dL (9.0-27.0); Calcium 9.3 mg/dL (8.7-10.3); Carbon Dioxide 27.4 mmol/L (20.0-27.5); Globulin 2.2 g/dL (1.6-3.3); Non-African American GFR(CKD) 61.1 (60.0-200.0); Potassium 4.6 mmol/L (3.5-5.5); Total Bilirubin 0.4 mg/dL (0.30-1.20); Total Protein 6.2 g/dL (6.2-8.2)
== END | disposition home or self-care (01) ==
LOC: LABWHC1 11:13
PROVIDERS: ATTEND Internal Medicine Interventional Cardiology
DX: D64.9 Anemia, unspecified (principal)
CPT/HCPCS: 36415; 80053; 85027

== ENCOUNTER 2022-08-31 07:05 | Day surgery (SDC) | payer MEDICARE ==
[2022-08-31] MEDS: LACTATED RINGERS 1,000 ML IV SCH ×2 (07:17→07:30)
[2022-08-31 07:27] VITALS: RESP 18; TEMP 97
[2022-08-31] MEDS ORDERED: LIDOCAINE 2% INJ 20 MG/ML (2 ML VIAL) ONE (08:05)
[2022-08-31] MEDS ORDERED: PROPOFOL 10 MG/ML 20 ML VIAL IV ONE (08:05)
--- NOTE | 2022-08-31 08:10 | P.GSHP ---
History of Present Illness H&P Date: 08/31/22 Chief Complaint: anemia, GI bleed 72-year-old female with recent shortness of breath. Patient was found to have hemoglobin of 5. Denies rectal bleeding. No constipation. Last colonoscopy 12 years ago. No family history of colon cancer. Past Medical History Past Medical History: Coronary Artery Disease (CAD), GERD/Reflux, Hyperlipidemia, Hypertension, Myocardial Infarction ([place]), Syncope, Thyroid Disorder Additional Past Medical History / Comment(s): diverticular dx, hemorrhoids, overactive bladder, hypothyroid. . Seen by Dr Castillo for Copd who told her lungs were fine,sent to Dr Barrera for a stress test found to have low hemaglobin.could not do a stress test at that time, received 2 units during hospital stay.Having scopes to see if they can find source of bleeding Last Myocardial Infarction Date:: 08-18-17 History of Any Multi-Drug Resistant Organisms: None Reported Past Surgical History: Appendectomy, Heart Catheterization With Stent, Hysterectomy, Tonsillectomy Additional Past Surgical History / Comment(s): Multiple bilateral breast benign bxs, colonoscopies/polypectomies, thyroid nodule removed Past Anesthesia/Blood Transfusion Reactions: No Reported Reaction Additional Past Anesthesia/Blood Transfusion Reaction / Comment(s): no issues with blood transfusion Date of Last Stent Placement:: 08-18-17 Smoking Status: Former smoker - Past Family History Mother Additional Family Medical History / Comment(s): Depression Father Family Medical History: Coronary Artery Disease (CAD) Medications and Allergies Home Medications Medication Instructions Recorded Confirmed Type Levothyroxine Sodium [Synthroid] 100 mcg PO DAILY 08/18/17 08/31/22 History Aspirin 81 mg PO DAILY #0 chew 08/20/17 08/31/22 Rx Spironolactone [Aldactone] 25 mg PO DAILY #90 tab 08/20/17 08/31/22 Rx carvediloL [Coreg] 3.125 mg PO BID-W/MEALS #180 tab 08/20/17 08/31/22 Rx Vilazodone HCl [Viibryd] 40 mg PO DAILY 02/04/22 08/31/22 History buPROPion XL [Wellbutrin XL] 150 mg PO TID 02/04/22 08/31/22 History lisinopriL [Zestril] 10 mg PO DAILY 02/04/22 08/31/22 History Nitroglycerin Sl Tabs [Nitrostat] 0.4 mg SUBLINGUAL Q5M PRN 08/04/22 08/31/22 History Omeprazole [PriLOSEC] 20 mg PO AC-BRKFST 08/04/22 08/31/22 History Atorvastatin [Lipitor] 80 mg PO DAILY@1500 08/06/22 08/31/22 History Allergies Allergy/AdvReac Type Severity Reaction Status Date / Time No Known Allergies Allergy Verified 08/31/22 07:37 Surgical - Exam Vital Signs Temp Pulse Resp BP Pulse Ox 97.0 F L 91 18 162/79 95 08/31/22 07:16 08/31/22 07:16 08/31/22 07:16 08/31/22 07:16 08/31/22 07:16 Physical exam: General: Well-developed, well-nourished HEENT: Normocephalic, sclerae nonicteric Abdomen: Nontender, nondistended Extremities: No edema Neuro: Alert and oriented Assessment and Plan (1) Symptomatic anemia Narrative/Plan: Will proceed with upper and lower endoscopy Current Visit: No Status: Acute Code(s): D64.9 - ANEMIA, UNSPECIFIED SNOMED Code(s): 821642061
--- NOTE | 2022-08-31 08:28 | P.PCN ---
Date of Procedure: 08/31/22 Procedure(s) Performed: PREOPERATIVE DIAGNOSIS: GI bleed, GERD, anemia POSTOPERATIVE DIAGNOSIS: Mild gastritis, moderate to large hiatal hernia, diverticulosis, tortuous sigmoid colon PROCEDURE: 1. EGD with biopsy 2. Attempted colonoscopy [place]: [facility] [place]GEON: Bryn Costa M.D. SPECIMENS: Antrum ENDOSCOPIC PROCEDURE: The patient was on the endoscopy table in the left decubitus position. The Olympus gastroscope was inserted into the oropharynx and passed under direct visualization to the region of the third portion of the duodenum. From that point the scope was slowly withdrawn inspecting all surfaces carefully. There were no neoplastic inflammatory or polypoid lesions throughout the duodenum. The pylorus was widely patent. The stomach was carefully inspected. There was mild gastritis present. A biopsy of the antrum took place to rule out H. pylori. Retroflexion revealed a moderate to large hiatal hernia. GE junction was present at 33 cm while the diaphragmatic hiatus was present at 40 cm. A portion of stomach above the diaphragm is free of inflammation. The esophagus was then carefully examined. There were no neoplastic inflammatory or polypoid lesions throughout the visualized esophagus. The patient was kept on the endoscopy table in the left decubitus position. The Olympus colonoscope was inserted into the anus and passed under direct visualization to the mid sigmoid colon. The patient had significant tortuosity. Despite multiple different attempts at positioning we are unable to advance the scope more proximally. The patient had extensive diverticulosis throughout the sigmoid colon. There was no visible bleeding. The scope was withdrawn. No abnormalities in the rectum or sigmoid were otherwise noted. Digital rectal examination was normal. The patient was taken to the recovery room in stable condition per anesthesia guidelines. RECOMMENDATIONS: Await biopsy results. Continue clear liquids. Will order a barium enema for tomorrow.
[2022-08-31 09:05] VITALS: BP 127/70; PULSE 65
== END 2022-08-31 09:44 | disposition home or self-care (01) ==
LOC: ORWHC2ENDO 07:05
PROVIDERS: ATTEND Surgery
DX: K29.50 Unspecified chronic gastritis without bleeding (principal); K21.9 Gastro-esophageal reflux disease without esophagitis; K44.9 Diaphragmatic hernia without obstruction or gangrene; K57.30 Diverticulosis of large intestine without perforation or abscess without bleeding; I11.0 Hypertensive heart disease with heart failure; I50.9 Heart failure, unspecified; K76.0 Fatty (change of) liver, not elsewhere classified; I25.10 Atherosclerotic heart disease of native coronary artery without angina pectoris; E78.5 Hyperlipidemia, unspecified; I25.2 Old myocardial infarction; Z87.19 Personal history of other diseases of the digestive system; E03.9 Hypothyroidism, unspecified; J44.9 Chronic obstructive pulmonary disease, unspecified; I25.5 Ischemic cardiomyopathy; N32.81 Overactive bladder; Z95.5 Presence of coronary angioplasty implant and graft; Z98.890 Other specified postprocedural states; Z90.49 Acquired absence of other specified parts of digestive tract; Z87.891 Personal history of nicotine dependence; Z82.49 Family history of ischemic heart disease and other diseases of the circulatory system; F32.A Depression, unspecified; Z79.82 Long term (current) use of aspirin; Z79.890 Hormone replacement therapy; Z79.52 Long term (current) use of systemic steroids; Z79.899 Other long term (current) drug therapy; Z79.02 Long term (current) use of antithrombotics/antiplatelets; Z79.891 Long term (current) use of opiate analgesic; D64.9 Anemia, unspecified
CPT/HCPCS: 43239; 45378; J2704; J2001; 88305

== ENCOUNTER → 2022-09-01 | Outpatient (CLI) | payer MEDICARE ==
--- NOTE | 2022-09-01 16:47 | FL ---
EXAMINATION TYPE: FL barium enema DATE OF EXAM: 09/01/2022 COMPARISON: None HISTORY: Failed colonoscopy TECHNIQUE: Double air contrast technique is utilized to evaluate the colon. Barium followed by air is reflux through the colon to the cecum. FINDINGS: Shop Supervisor film is noncontributory Contrast passes through the redundant sigmoid colon with some hesitancy. Persistent focal narrowing h owever is not identified. There are some scattered diverticuli present. There is a tiny diverticula within the distal transverse colon. There is mild redundancy within the ascending colon. Contrast appears to fill the cecum. The appendix is not identified. Ileocecal valve is not clearly identified. Presacral space appears normal. Fluoroscopy time: 3 minutes 15 seconds. Images: 35 IMPRESSION: 1. Redundancy through the sigmoid colon. No focal stenosis is evident. Diverticulosis is present.
== END | disposition home or self-care (01) ==
LOC: RADFLMAIN 07:39
PROVIDERS: ATTEND Surgery
DX: D64.9 Anemia, unspecified (principal); K57.30 Diverticulosis of large intestine without perforation or abscess without bleeding; Z98.890 Other specified postprocedural states
CPT/HCPCS: 74270

== ENCOUNTER → 2022-12-02 | Outpatient (CLI) | payer MEDICARE ==
--- NOTE | 2022-12-02 13:25 | MM ---
Reason for Exam: Follow-up at short interval from prior study. Last mammogram was performed 1 year(s) and 3 month(s) ago. Patient History: Menarche at age 10. First Full-Term at age 23. Left ovary removed at age 35. Right ovary removed at age 35. Hysterectomy at age 35. Postmenopausal. Previous Hyperplasia w/o Atypia at age 71. Estrogen for 5 years from age 35 until age 40. 02/18/2022, Benign MG stereo VAD BX RT on the right side. 1999, Benign Excisional Biopsy on the right side. 01/27/2017, Benign Core Biopsy on the left side. 06/05/2014, Benign Core Biopsy on the right side. 09/26/2009, Benign Core Biopsy on the left side. 04/07/2007, Benign Core Biopsy on the left side. 04/07/2007, Benign Core Biopsy on the left side. 04/07/2007, Benign Core Biopsy on the left side. Maternal grandmother had breast cancer. Risk Values: Sonam 5 year model risk: 2.9%. NCI Lifetime model risk: 6.7%. Tissue Density: There are scattered fibroglandular densities. Findings: Analyzed By CAD. A number of bilateral microclips from prior biopsies. Loosely grouped microcalcifications central inner aspect of both breasts appear to be gradually increasing. Probably increasing benign calcifications near sites of previous benign biopsies. Six-month follow-up recommended. Otherwise, no significant change. Overall Assessment: Probably benign, BI-RAD 3 Management: Diagnostic Mammogram of both breasts in 6 months. 1. Patient should continue monthly self breast exams. 2. A clinical breast exam by your physician is recommended on an annual basis. 3. This exam should not preclude additional follow-up of suspicious palpable abnormalities. Results were given to the patient verbally at the time of exam. Electronically signed and approved by: Jerry Wiggins M.D. Radiologist
== END | disposition home or self-care (01) ==
LOC: RADMAMWWP 12:52
PROVIDERS: ATTEND Surgery
DX: R92.8 Other abnormal and inconclusive findings on diagnostic imaging of breast (principal); Z78.0 Asymptomatic menopausal state; Z80.3 Family history of malignant neoplasm of breast
CPT/HCPCS: 77066; G0279; 77062

== ENCOUNTER → 2023-03-10 | Outpatient (CLI) | payer MEDICARE ==
[2023-03-10 21:02] LABS: T4, Free (Free Thyroxine) 1.75 ng/dL (0.80-1.80)
[2023-03-10 21:15] LABS: ALT 64 U/L (8-44); AST 44 U/L (13-35); Blood Urea Nitrogen 19.9 mg/dL (9.0-27.0); Carbon Dioxide 28.4 mmol/L (21.6-31.8); Chloride 105 mmol/L (96-109); Potassium 5.1 mmol/L (3.5-5.5); Sodium 142 mmol/L (135-145)
[2023-03-10 21:22] LABS: Basophils # (A) 0.06 X 10*3/uL (0.00-0.10); Basophils % (A) 1.1 %; Eosinophils # (A) 0.09 X 10*3/uL (0.04-0.35); Eosinophils % (A) 1.6 %; HCT 47.5 % (37.2-46.3); HGB 15.3 d/dL (12.0-15.0); Lymphocytes # (A) 0.98 X 10*3/uL (0.90-5.00); Lymphocytes % (A) 17.9 %; MCH 31.5 pg (27.0-32.0); MCHC 32.2 d/dL (32.0-37.0); MCV 97.7 FL (80.0-97.0); Mean Platelet Volume 10.7 FL (9.5-12.2); Monocytes # (A) 0.39 X 10*3/uL (0.20-1.00); Monocytes % (A) 7.1 %; NRBC Per 100 WBC 0 X 10*3/uL (0.00-0.01); Neutrophils # (A) 3.94 X 10*3/uL (1.80-7.70); Neutrophils % (A) 72.1 %; Platelet Count 308 X 10*3/uL (140-440); RBC 4.86 X 10*6/uL (4.10-5.20); RDW 14.5 % (11.5-14.5); WBC 5.47 X 10*3/uL (4.50-10.00)
== END | disposition home or self-care (01) ==
LOC: LABWHC1 16:00
PROVIDERS: ATTEND Psychiatry & Neurology Psychiatry
DX: F33.0 Major depressive disorder, recurrent, mild (principal); E03.9 Hypothyroidism, unspecified; E55.9 Vitamin D deficiency, unspecified; E53.8 Deficiency of other specified B group vitamins; D64.9 Anemia, unspecified
CPT/HCPCS: 36415; 80051; 82306; 82565; 82607; 84439; 84443; 84450; 84460; 84520; 85025

== ENCOUNTER → 2023-03-25 | Outpatient (CLI) | payer MEDICARE ==
--- NOTE | 2023-03-25 16:42 | CT ---
EXAMINATION TYPE: CT lumbar spine wo con DATE OF EXAM: 03/25/2023 COMPARISON: HISTORY: Low back pain after lifting injury. CT DLP: 889 mGycm CONTRAST: CT scan of the lumbar is performed , patient injected with mL of . TECHNIQUE: CT of the lumbar spine is performed on a spiral scan at 3 mm thick sections. Reconstructed images are performed in the coronal and sagittal planes. FINDINGS: Note is made of inferior anterior right renal cysts. Vascular calcifications within the aor ta. Degenerative disc changes are throughout the lumbar spine. Vacuum disc phenomenon is present L3-4 L4- 5 L5-S1. Schmorl's node may be the inferior endplate of L3. T12-L1: No focal disc herniation or significant disc bulge is evident. No spinal canal stenosis or neural foraminal stenosis is present. L1-L2: No focal disc herniation or significant disc bulge is evident. No spinal canal stenosis or n eural foraminal stenosis is present L2-L3: Broad-based disc bulge is moderate anterior thecal sac flattening. No AP spinal canal stenosis present. Mild ligamentum flavum laxity is present. Moderate bilateral foraminal narrowing is present . L3-L4: Mild disc bulging is present with anterior thecal sac contact. No AP spinal canal stenosis is present. Mild ligamentum flavum laxity is present. Moderate to severe foraminal narrowing is present bilaterally. L4-L5: Minimal disc bulge has intrathecal sac contact. No AP spinal canal stenosis is present. Modera te to severe left and severe right foraminal stenosis is present. Correlate with radicular symptoms. L5-S1: No focal disc herniation or significant disc bulge is evident. No spinal canal stenosis. Mod erate bilateral foraminal stenosis is present. Vertebral alignment appears normal. IMPRESSION: 1. Moderately advanced degenerative disc changes throughout the lumbar spine. 2. Residual disc bulging has mild to moderate anterior thecal sac compression without spinal canal st enosis. 3. Multilevel moderate to severe foraminal stenosis. This may be greatest at the right L4-5 foramen.
== END | disposition home or self-care (01) ==
LOC: RADCTMAIN 11:09
PROVIDERS: ATTEND Family Medicine
DX: M51.36 Other intervertebral disc degeneration, lumbar region (principal); M99.73 Connective tissue and disc stenosis of intervertebral foramina of lumbar region
CPT/HCPCS: 72131

== ENCOUNTER → 2023-06-02 | Outpatient (CLI) | payer MEDICARE ==
--- NOTE | 2023-06-02 11:57 | MR ---
EXAMINATION TYPE: MR lumbar spine wo con DATE OF EXAM: 06/02/2023 11:46 AM CLINICAL INDICATION:Female, 73 years old with history of M47.817 low back pain; PHH, Low back pain COMPARISON: None TECHNIQUE: Multi planar, multi sequence imaging was performed utilizing: T1-weighted, T2-weighted, a nd turbo inversion recovery imaging of the lumbar spine. IV Contrast: cc . (None if empty) FINDINGS: Alignment: The lumbar vertebral bodies have preserved heights and alignment. Cord: The conus medullaris and the distal spinal cord appear unremarkable with regards to their signa l intensity and morphology. Bones/Discs: Multilevel disc degeneration changes with osteophyte formation, disc space narrowing, Sc hmorl's nodes, and facet joint arthropathy. No abnormal inversion recovery signal to suggest bony ifrah ma. Intervertebral disc signal is maintained. T12-L1: No evidence of significant spinal canal stenosis or neural foraminal stenosis. L1-L2: No evidence of significant spinal canal stenosis or neural foraminal stenosis. L2-L3: Disc bulge and facet joint arthropathy result in mild spinal canal and moderate bilateral neur al foraminal stenosis. L3-L4: Disc bulge and facet joint arthropathy result in mild spinal canal and moderate to severe righ t and severe left neural foraminal stenosis. L4-L5: Disc bulge and facet joint arthropathy result in mild spinal canal and moderate to severe bila teral neural foraminal stenosis. L5-S1: The disc is rounded posterior morphology without significant spinal canal stenosis. Facet join t arthropathy with mild to moderate bilateral neural foraminal stenosis. No significant spinal canal or neural foraminal stenosis in the remainder of the visualized levels. Other findings: Right high T2 signal renal cysts. Renal cyst. IMPRESSION: 1. No definitive evidence of disc herniation or significant spinal canal stenosis. 2. Moderate to severe disc degeneration with associated osteoarthritic changes with neural foraminal stenosis worse at L3-L4 with severe left neural foraminal stenosis.
== END | disposition home or self-care (01) ==
LOC: RADMRIMAIN 10:47
PROVIDERS: ATTEND Orthopaedic Surgery
DX: M47.817 Spondylosis without myelopathy or radiculopathy, lumbosacral region (principal); M51.36 Other intervertebral disc degeneration, lumbar region; M99.73 Connective tissue and disc stenosis of intervertebral foramina of lumbar region
CPT/HCPCS: 72148

== ENCOUNTER → 2023-08-02 | Outpatient (CLI) | payer MEDICARE ==
--- NOTE | 2023-08-02 09:50 | MM ---
Reason for Exam: Follow-up at short interval from prior study. Last screening mammogram was performed 8 month(s) ago. Patient History: Menarche at age 10. First Full-Term at age 23. Left ovary removed at age 35. Right ovary removed at age 35. Hysterectomy at age 35. Postmenopausal. Previous Hyperplasia w/o Atypia at age 71. Estrogen for 5 years from age 35 until age 40. 02/18/2022, Benign MG stereo VAD BX RT on the right side. 1999, Benign Excisional Biopsy on the right side. 01/27/2017, Benign Core Biopsy on the left side. 06/05/2014, Benign Core Biopsy on the right side. 09/26/2009, Benign Core Biopsy on the left side. 04/07/2007, Benign Core Biopsy on the left side. 04/07/2007, Benign Core Biopsy on the left side. 04/07/2007, Benign Core Biopsy on the left side. Maternal grandmother had breast cancer. Risk Values: Sonam 5 year model risk: 2.9%. NCI Lifetime model risk: 6.3%. Prior Study Comparison: 01/25/2017 Bilateral Diagnostic Mammogram, [facility]. 02/21/2018 Bilateral Screening Mammogram, [facility]. 08/11/2021 Bilateral Screening Mammogram, [facility]. 02/03/2022 Right MG 3D diag mammo w/cad RT, [facility]. 12/02/2022 Bilateral MG 3D diag mammo w/cad THALIA, [facility]. Tissue Density: There are scattered fibroglandular densities. Findings: Analyzed By CAD. Bilateral microclips relating to previous biopsies. The grouped and loosely microcalcifications inner aspect of both breasts near the site of previous biopsies likely gradually increasing benign calcifications stable for the last 8 months. Ongoing short interval follow-up is recommended. Otherwise, no significant change. Overall Assessment: Probably benign, BI-RAD 3 Management: Diagnostic Mammogram of both breasts in 6 months. . Results were given to the patient verbally at the time of exam. Patient should continue monthly self-breast exams. A clinical breast exam by your physician is recommended on an annual basis. This exam should not preclude additional follow-up of suspicious palpable abnormalities. Note on Sonam scores and lifetime risk: 1. A Sonam score greater than 3% is considered moderate risk. If this is the case, consider specialist referral to assess eligibility for a risk reducing agent. 2. If overall lifetime risk for the development of breast cancer is 20% or higher, the patient may qualify for future screening with alternating mammogram and breast MRI. Electronically signed and approved by: Jerry Wiggins M.D. Radiologist
== END | disposition home or self-care (01) ==
LOC: RADMAMWWP 09:06
PROVIDERS: ATTEND Obstetrics & Gynecology
DX: N63.10 Unspecified lump in the right breast, unspecified quadrant (principal); N63.20 Unspecified lump in the left breast, unspecified quadrant; R92.323 Mammographic fibroglandular density, bilateral breasts; Z78.0 Asymptomatic menopausal state; Z80.3 Family history of malignant neoplasm of breast
CPT/HCPCS: 77066; G0279; 77062

== ENCOUNTER → 2023-08-09 | Outpatient (CLI) | payer MEDICARE ==
[2023-08-09 12:34] VITALS: BP 169/100; PULSE 71; RESP 16
--- NOTE | 2023-08-09 14:24 | P.PAINPG ---
PQRS Measure Charge Sheet Comment: HISTORY OF PRESENT ILLNESS: A 73 yr old female w at side as a referral from Dr Steward presents today w severe and chronic LBP x 1 yr secondary to DDD, spondylosis and facet arthropathy without myelopathy for evaluation. Pt states pain level is provoked at 10 /10 in intensity, constant, localized in the mid lumbar spine, predominantly axial, stabbing in character without occasional shooting pain Pain is provoked by standing for periods >20 min. Pain is alleviated by physician guided home exercises x 4 wks in May- Jun 2023 without relief, heat, medications, repositioning and rest. Oswestry axial pain score at 28. PMH: OA, CAD, GERD, Hyperlipidemia, HTN, PR (2018), Syncope, Hypothyroid Di sorder, MDD PSH: EGD (2022), Appendectomy, Heart Catheterization With Stent (2017), Hysterectomy, Thyroidectomy, Tonsillectomy, Multiple Benign Breast Biopsies SH: Former tobacco user, No ETOH abuse, No illicit drug use FH: Fa- CAD. Mo- MDD All: See list Meds: See list REVIEW OF ORGAN SYSTEMS: CONSTITUTIONAL: No fevers or chills. No recent weight loss. NEUROLOGICAL: + numbness and tingling along the distal extremities. No seizure disorders or headaches. MUSCULOSKELETAL: + pain PSYCHIATRIC: Denies current depression or suicidal thoughts. Physical Examinations : Constitutional : Cooperative , not in acute distress . Neurologic : Cranial nerve II to XII intact. No focal neurological deficits. Psychiatric : alert & oriented x 3. Matching mood & appropriate affect. Judgment & insight intact. Musculoskeletal : Cervical Spine Motor strength in the deltoid and biceps: Normal right side. Normal Left side Motor strength biceps and the wrist extensors: Normal right side . Normal left side Motor strength in the triceps muscle: Normal right side. Normal left side Deep tendon reflexes: Normal at the biceps. Normal at Brachioradialis. Normal at triceps Vertebral body tenderness to deep palpation over Cervical facet loading test: positive bilaterally Spurling test: positive bilaterally Neck distraction test: positive bilaterally Devorah sign: positive bilaterally Lumbar spine Motor strength lower extremities ,thigh and legs 5/5 Right side , 5/5 Left side Deep tendon reflexes : Normal Knee Jerk. Normal Ankle Jerk Vertebral body tenderness over L3 Womack Test positive over BL L3-L4 Lumbar facet Loading Test: positive Right / positive Left Range of motion of the lumbar spine Flexion 30 degrees, extension 10 degrees Straight Leg Raise test: Left/ Right positive at degrees Aly test: positive right / positive left. Severe tenderness over the Sacroiliac joint on the Right / Left sides Gaenslen test: positive bilaterally Seated flexion test: positive bilaterally. Sacral spine : Severe tenderness over the Sacroiliac joint: right side / left side Range of motion: Flexion of the lumbar spine <60 degrees Range of motion: Extension of the l umbar spine <20 degrees Gaenslen's Test positive Aly test: positive right side / left side Thigh Thrust Test Sacral Thrust Test Imaging: MRI noncontrast of the lumbar spine from 06/02/23 reviewed Assessment/ Plan : Lumbar DDD Recommendation of MYCHAL L3-L4 #1. May need a series of injections for optimal pain relief. Risks, benefits of procedure discussed and patient verbalized understanding. Admits to anti- coagulant use or medical history of diabetes. Protocol for discontinuation/ continuation of medications halle procedure discussed. All questions answered. I have spent greater than 30 minutes on patient care today. Dr Mitchell was available by phone for the evaluation of this patient. The time was used to review the medical records including relevant urine studies and Prescription history (MAPs), review of the available imaging, evaluation and examination of the patient, coordination of care with the medical staff and if applicable referring physicians, as well as creation of the medical record PQRS Narrative: Smoking Status Former smoker Home Medications: Ambulatory Orders Levothyroxine Sodium [Synthroid] 100 mcg PO DAILY 08/18/17 Aspirin 81 mg PO DAILY #0 chew 08/20/17 Spironolactone [Aldactone] 25 mg PO DAILY #90 tab 08/20/17 carvediloL [Coreg] 3.125 mg PO BID-W/MEALS #180 tab 08/20/17 Vilazodone HCl [Viibryd] 40 mg PO DAILY 02/04/22 buPROPion XL [Wellbutrin XL] 150 mg PO TID 02/04/22 lisinopriL [Zestril] 10 mg PO DAILY 02/04/22 Nitroglycerin Sl Tabs [Nitrostat] 0.4 mg SUBLINGUAL Q5M PRN 08/04/22 Omeprazole [PriLOSEC] 20 mg PO AC-BRKFST 08/04/22 Atorvastatin [Lipitor] 80 mg PO DAILY@1500 08/06/22 Controlled Substance Measures - Controlled Substance Measures Is patient prescribed a controlled substance at discharge?: No
== END ==
LOC: PNWHC3 11:39
PROVIDERS: ATTEND Specialist
DX: M54.51 Vertebrogenic low back pain (principal); M48.061 Spinal stenosis, lumbar region without neurogenic claudication; M47.816 Spondylosis without myelopathy or radiculopathy, lumbar region; M51.36 Other intervertebral disc degeneration, lumbar region; M19.90 Unspecified osteoarthritis, unspecified site; I25.10 Atherosclerotic heart disease of native coronary artery without angina pectoris; K21.9 Gastro-esophageal reflux disease without esophagitis; E78.5 Hyperlipidemia, unspecified; I10 Essential (primary) hypertension; I25.2 Old myocardial infarction; E07.9 Disorder of thyroid, unspecified; F32.9 Major depressive disorder, single episode, unspecified; Z87.891 Personal history of nicotine dependence; Z79.890 Hormone replacement therapy; Z79.82 Long term (current) use of aspirin; Z79.899 Other long term (current) drug therapy
CPT/HCPCS: 99211

== ENCOUNTER → 2023-08-23 | Day surgery (SDC) | payer MEDICARE ==
[2023-08-17 16:12] VITALS: BMI 30.2
[~2023-08-23] MED LIST changes: -ALPRAZolam 0.25 MG TAB PO PRN; -ALPRAZolam 0.5 MG TAB PO PRN; -ASPIRIN 325 MG TAB PO STA; -ATORVASTATIN 80 MG TAB PO STA; -HEPARIN SODIUM,PORCINE 10,000 UNIT in SODIUM CHLORIDE 0.9% 1,000 ML IRRIGATION PRN; -HEPARIN SODIUM,PORCINE 2,500 UNIT in SODIUM CHLORIDE 0.9% 250 ML IRRIGATION PRN; +IOPAMIDOL M200 10 ML VIAL ONE; +LACTATED RINGERS 1,000 ML IV SCH; -NITROGLYCERIN SL TABS 0.4 MG TAB SUBLINGUAL PRN; -SODIUM CHLORIDE 0.9% 1,000 ML in EMPTY BAG 1 BAG IV ONE; +methylPREDNISolone ACETATE 40 MG/ML 1 ML VIAL ONE
[2023-08-23 09:06] VITALS: TEMP 98
--- NOTE | 2023-08-23 10:15 | P.PCN ---
Date of Procedure: 08/23/23 Procedure(s) Performed: PREOPERATIVE DIAGNOSIS: 1- Lumbar Degenerative Disc Diseases 2-Lumbar spondylosis with Facet arthropathy without myelopathy. 3-lumbar spinal stenosis POSTOPERATIVE DIAGNOSIS: 1-lumbar degenerative disc disease. 2-lumbar spondylosis with facet arthropathy without myelopathy. 3-lumbar spinal stenosis. PROCEDURE 1. Lumbar epidural steroid injection under fluoroscopic guidance at the L3-4 level. (Fluoroscopy imaging was available in radiology department) 2. Lumbar epidurogram. ANESTHESIA: Lidocaine 1% 3 and then only. EBL: Minimal PROCEDURE INDICATION: The patient with low back pain and radiculitis symptoms unresponsive to conservative treatment. Fluoroscopy was used to optimize visualization of the needle placement and to maximize safety. PROCEDURE DESCRIPTION / TECHNIQUE: The patient was seen and identified in the preoperative area. Risks, benefits, complications including but not limited to infections ,bleeding ,allergic reaction to the medications ,nerve damage and not complete pain releife , and alternatives were discussed with the patient. The patient agreed to proceed with the procedure and signed the consent, and vital signs were stable. Patient was taken to the OR and time out was completed. The patient was placed in the prone position on procedure table and a pillow was placed under the abdomen to reduce lumbar lordosis. The lumbosacral area was prepped and draped in the usual sterile fashion.ere closely monitored during the procedure. Vital signs was monitered during the entire procedure. Using anterior-posterior fluoroscopy, the L3-4 interlaminar space was identified and the skin over this site was marked and then infiltrated with 1% lidocaine subcutaneously. Subsequently, a 20-gauge Tuohy epidural needle was inserted and advanced toward the epidural space using the ``Loss of resistance technique and guided by AP and lateral fluoroscopy. The correct needle position in the epidural space was verified with the injection of 2 mL of the water soluble contrast dye Isovue 200 contrast and observing an excellent epidurogram with the epidural spread of the dye, after negative aspiration for blood and CSF and in the absence of paresthesias. Again after negative aspiration, a 5 ml mixture containing 40 mg of Depo-medrol ( Preservetive Free ), and 2 ml of preservative free Normal Saline, and 2 ml of preservative free lidocaine 1% solution was injected and a washout of epidurogram was seen. Needle was withdrawn intact, skin was cleansed, and bandages were applied. COMPLICATIONS: None DISPOSITION / PLANS: The patient was placed in a supine position and transferred to the recovery area in a stable condition for observation. There was no evidence of lower extremity motor or sensory deficit after the procedure. Patient was discharged from the recovery room after meeting discharge criteria. Home discharge instructions were given to the patient by the staff. The patient was reexamined prior to discharge. The patient will schedule a follow up in the clinic in 2-4 weeks.
--- NOTE | 2023-08-23 10:38 | FL ---
EXAMINATION TYPE: FL guided pain mgmt statistic DATE OF EXAM: 08/23/2023 FLUOROSCOPY Fluoroscopy time of 4 seconds was used during lumbar epidural steroid injection. 1 image/s document/ s the procedure. DAP=.[id number] mGycm2.
[2023-08-23 11:03] VITALS: BP 162/72; PULSE 56; RESP 16
== END ==
LOC: ORPAIN 08:27
PROVIDERS: ATTEND Specialist
DX: M47.816 Spondylosis without myelopathy or radiculopathy, lumbar region (principal); M54.16 Radiculopathy, lumbar region; M48.061 Spinal stenosis, lumbar region without neurogenic claudication; M51.36 Other intervertebral disc degeneration, lumbar region; M54.50 Low back pain, unspecified
CPT/HCPCS: 62323; J1030; Q9966

== ENCOUNTER → 2023-09-15 | Outpatient (CLI) | payer MEDICARE ==
[2023-09-15 12:33] VITALS: BP 122/82; PULSE 98; RESP 15; TEMP 98.5
--- NOTE | 2023-09-15 14:36 | P.PAINPG ---
PQRS Measure Charge Sheet Comment: HISTORY OF PRESENT ILLNESS: A 73 yr old female w at side presents today w severe and chronic LBP x 1 yr secondary to DDD, spondylosis and facet arthropathy without myelopathy for evaluation s/p MYCHAL L3-L4 #1. Pt states she experienced 90 % pain relief x 3 wks s/p procedure. Pt states pain level is provoked at 2 /10 in intensity, constant, localized in the mid lumbar spine, predominantly axial, stabbing in character without occasional shooting pain Pain is provoked by standing for periods >20 min. Pain is alleviated by physician guided home exercises x 4 wks in May- Jun 2023 without relief, heat, medications, repositioning and rest. Oswestry axial pain score at 28. Interventional procedures include MYCHAL L3-L4 #1 Medications include Tyl REVIEW OF ORGAN SYSTEMS: CONSTITUTIONAL: No fevers or chills. No recent weight loss. NEUROLOGICAL: + numbness and tingling along the distal extremities. No seizure disorders or headaches. MUSCULOSKELETAL: + pain PSYCHIATRIC: Denies current depression or suicidal tho ughts. Physical Examinations : Constitutional : Cooperative , not in acute distress . Neurologic : Cranial nerve II to XII intact. No focal neurological deficits. Psychiatric : alert & oriented x 3. Matching mood & appropriate affect. Judgment & insight intact. Musculoskeletal : Cervical Spine Motor strength in the deltoid and biceps: Normal right side. Normal Left side Motor strength biceps and the wrist extensors: Normal right side . Normal left side Motor strength in the triceps muscle: Normal right side. Normal left side Deep tendon reflexes: Normal at the biceps. Normal at Brachioradialis. Normal at triceps Vertebral body tenderness to deep palpation over Cervical facet loading test: positive bilaterally Spurling test: positive bilaterally Neck distraction test: positive bilaterally Devorah sign: positive bilaterally Lumbar spine Motor strength lower extremities ,thigh and legs 5/5 Right side , 5/5 Left side Deep tendon reflexes : Normal Knee Jerk. Normal Ankle Jerk Vertebral body tenderness over L3 Womack Test positive over Lumbar facet Loading Test: positive Right / positive Left Range of motion of the lumbar spine Flexion 30 degrees, extension 10 degrees Straight Leg Raise test: Left/ Right positive at degrees Aly test: positive right / positive left. Severe tenderness over the Sacroiliac joint on the Right / Left sides Gaenslen test: positive bilaterally Seated flexion test: positive bila terally. Sacral spine : Severe tenderness over the Sacroiliac joint: right side / left side Range of motion: Flexion of the lumbar spine <60 degrees Range of motion: Extension of the lumbar spine <20 degrees Gaenslen's Test positive Aly test: positive right side / left side Thigh Thrust Test Sacral Thrust Test Imaging: MRI noncontrast of the lumbar spine from 06/02/23 reviewed Assessment/ Plan : Lumbar DDD Will manage residual pain and may RTC on an as needed basis. All questions answered. I have spent greater than 30 minutes on patient care today. Dr Mitchell was available by phone for the evaluation of this patient. The time was used to review the medical records including relevant urine studies and Prescription history (MAPs), review of the available imaging, evaluation and examination of the patient, coordination of care with the medical staff and if applicable referring physicians, as well as creation of the medical record PQRS Narrative: Smoking Status Former smoker Hx Alcohol Use (MH) Yes: OCCASIONAL Home Medications: Ambulatory Orders Levothyroxine Sodium [Synthroid] 100 mcg PO DAILY 08/18/17 Aspirin 81 mg PO DAILY #0 chew 08/20/17 Spironolactone [Aldactone] 25 mg PO DAILY #90 tab 08/20/17 carvediloL [Coreg] 3.125 mg PO BID-W/MEALS #180 tab 08/20/17 Vilazodone HCl [Viibryd] 40 mg PO DAILY 02/04/22 buPROPion XL [Wellbutrin XL] 150 mg PO TID 02/04/22 lisinopriL [Zestril] 10 mg PO DAILY 02/04/22 Nitroglycerin Sl Tabs [Nitrostat] 0.4 mg SUBLINGUAL Q5M PRN 08/04/22 Omeprazole [PriLOSEC] 20 mg PO AC-BRKFST 08/04/22 Atorvastatin [Lipitor] 80 mg PO DAILY@1500 08/06/22 Ferrous Sulfate [Feosol] 325 mg PO DAILY 08/17/23 Controlled Substance Measures - Controlled Substance Measures Is patient prescribed a controlled substance at discharge?: No
== END ==
LOC: PNWHC3 11:58
PROVIDERS: ATTEND Specialist
DX: M51.36 Other intervertebral disc degeneration, lumbar region (principal); Z87.891 Personal history of nicotine dependence; Z79.82 Long term (current) use of aspirin
CPT/HCPCS: 99211

== ENCOUNTER → 2024-02-29 | Outpatient (CLI) | payer MEDICARE ==
--- NOTE | 2024-02-29 15:09 | MM ---
Reason for Exam: Follow-up at short interval from prior study. Last screening mammogram was performed 7 month(s) ago. Patient History: Menarche at age 10. First Full-Term at age 23. Left ovary removed at age 35. Right ovary removed at age 35. Hysterectomy at age 35. Postmenopausal. Previous Hyperplasia w/o Atypia at age 71. Estrogen for 5 years from age 35 until age 40. 02/18/2022, Benign MG stereo VAD BX RT on the right side. 1999, Benign Excisional Biopsy on the right side. 01/27/2017, Benign Core Biopsy on the left side. 06/05/2014, Benign Core Biopsy on the right side. 09/26/2009, Benign Core Biopsy on the left side. 04/07/2007, Benign Core Biopsy on the left side. 04/07/2007, Benign Core Biopsy on the left side. 04/07/2007, Benign Core Biopsy on the left side. Maternal grandmother had breast cancer. Risk Values: Sonam 5 year model risk: 2.9%. NCI Lifetime model risk: 6.3%. Prior Study Comparison: 09/18/1996 Screening Mammogram, Unknown. 11/29/2011 Bilateral Diagnostic Mammogram, [facility]. 12/26/2012 Bilateral Screening Mammogram, [facility]. 05/02/2014 Bilateral Screening Mammogram, [facility]. 05/13/2014 Right Diagnostic Mammogram, [facility]. 12/24/2014 Right Diagnostic Mammogram, [facility]. 07/11/2015 Bilateral Diagnostic Mammogram, [facility]. 07/26/2016 Bilateral Screening Mammogram, [facility]. 01/25/2017 Bilateral Diagnostic Mammogram, [facility]. 07/28/2017 Left Diagnostic Mammogram, [facility]. 02/21/2018 Bilateral Screening Mammogram, [facility]. 08/11/2021 Bilateral Screening Mammogram, [facility]. 02/03/2022 Right MG 3D diag mammo w/cad RT, [facility]. 12/02/2022 Bilateral MG 3D diag mammo w/cad THALIA, [facility]. 08/02/2023 Bilateral MG 3D diag mammo w/cad THALIA, [facility]. Tissue Density: The breasts are heterogeneously dense, which may obscure small masses. Findings: Analyzed By CAD. Loosely calcifications are seen within the bilateral breasts are unchanged from prior study several of which have been sampled previously. No new clusters evident. No increasing cluster seen. No evidence for mass or distortion. Overall Assessment: Benign, BI-RAD 2 Management: Screening Mammogram of both breasts in 1 year. . Results were given to the patient verbally at the time of exam. Patient should continue monthly self-breast exams. A clinical breast exam by your physician is recommended on an annual basis. This exam should not preclude additional follow-up of suspicious palpable abnormalities. Note on Sonam scores and lifetime risk: 1. A Sonam score greater than 3% is considered moderate risk. If this is the case, consider specialist referral to assess eligibility for a risk reducing agent. 2. If overall lifetime risk for the development of breast cancer is 20% or higher, the patient may qualify for future screening with alternating mammogram and breast MRI. Electronically signed and approved by: Teo Bravo M.D. Radiologis
== END | disposition home or self-care (01) ==
LOC: RADMAMWWP 14:21
PROVIDERS: ATTEND Surgery
DX: R92.8 Other abnormal and inconclusive findings on diagnostic imaging of breast (principal); R92.333 Mammographic heterogeneous density, bilateral breasts; Z78.0 Asymptomatic menopausal state; Z80.3 Family history of malignant neoplasm of breast; Z90.721 Acquired absence of ovaries, unilateral
CPT/HCPCS: 77066; G0279; 77062

== ENCOUNTER 2024-05-31 11:15 | Emergency (ER) | payer MEDICARE ==
[2024-05-31 11:37] VITALS: RESP 18
--- NOTE | 2024-05-31 11:54 | ED ---
GI Bleed HPI - General Chief complaint: GI Bleed Stated complaint: Vomiting Time Seen by Provider: 05/31/24 11:32 Source: patient, RN notes reviewed Mode of arrival: ambulatory Limitations: no limitations - History of Present Illness Initial comments: This is a 74-year-old female history of anemia on iron oral supplementation present to the emergency department chief complaint of hemoptysis and hemoptysis. States that this morning she had episode of hemoptysis and also experienced emesis that was coffee-ground appearance. She admits to mild epigastric pain before episode of emesis. She denies diarrhea, constipation, chest pain, heart palpitations, dizziness lightheadedness. Patient was advised by her charge rn reports the emergency department for further evaluation as she does have a history of anemia that has required blood transfusions in the past. - Related Data Home Medications Medication Instructions Recorded Confirmed Levothyroxine Sodium [Synthroid] 100 mcg PO DAILY 08/18/17 08/17/23 Vilazodone HCl [Viibryd] 40 mg PO DAILY 02/04/22 08/17/23 buPROPion XL [Wellbutrin XL] 150 mg PO TID 02/04/22 08/17/23 lisinopriL [Zestril] 10 mg PO DAILY 02/04/22 08/17/23 Nitroglycerin Sl Tabs [Nitrostat] 0.4 mg SUBLINGUAL Q5M PRN 08/04/22 08/17/23 Omeprazole [PriLOSEC] 20 mg PO AC-BRKFST 08/04/22 08/17/23 Atorvastatin [Lipitor] 80 mg PO DAILY@1500 08/06/22 08/17/23 Ferrous Sulfate [Feosol] 325 mg PO DAILY 08/17/23 08/17/23 Previous Rx's Medication Instructions Recorded Aspirin 81 mg PO DAILY #0 chew 08/20/17 Spironolactone [Aldactone] 25 mg PO DAILY #90 tab 08/20/17 carvediloL [Coreg] 3.125 mg PO BID-W/MEALS #180 tab 08/20/17 Allergies Allergy/AdvReac Type Severity Reaction Status Date / Time No Known Allergies Allergy Verified 05/31/24 11:32 Review of Systems ROS Statement: Those systems with pertinent positive or pertinent negative responses have been documented in the HPI. ROS Other: All systems not noted in ROS Statement are negative. Past Medical History Past Medical History: Blood Disorder, Coronary Artery Disease (CAD), GERD/Reflux, Hyperlipidemia, Hypertension, Myocardial Infarction (OK), Syncope, Thyroid Disorder Additional Past Medical History / Comment(s): diverticular dx, hemorrhoids, overactive bladder, hypothyroid. Dr Barrera for a heart cath found to have low hemaglobin in Jul 2022-could not do a heartcath at that time-received 2 units during hospital stay-Hgb 5.3-now following with hematology for anemia Last Myocardial Infarction Date:: 08-18-17 History of Any Multi-Drug Resistant Organisms: None Reported Past Surgical History: Appendectomy, Heart Catheterization With Stent, Hysterectomy, Tonsillectomy Additional Past Surgical History / Comment(s): Multiple bilateral breast benign bxs, colonoscopies/polypectomies, thyroid nodule removed Past Anesthesia/Blood Transfusion Reactions: No Reported Reaction Additional Past Anesthesia/Blood Transfusion Reaction / Comment(s): no issues wi th blood transfusion Date of Last Stent Placement:: 08-18-17 Past Psychological History: Depression Smoking Status: Former smoker Past Alcohol Use History: Occasional Past Drug Use History: None Reported - Past Family History Mother Additional Family Medical History / Comment(s): Depression Father Family Medical History: Coronary Artery Disease (CAD) General Exam Limitations: no limitations General appearance: alert, in no apparent distress Eye exam: Present: normal appearance, PERRL, EOMI. Absent: scleral icterus, conjunctival injection, periorbital swelling ENT exam: Present: normal exam, mucous membranes moist Neck exam: Present: normal inspection. Absent: tenderness, meningismus, lymphadenopathy Respiratory exam: Present: normal lung sounds bilaterally. Absent: respiratory distress, wheezes, rales, rhonchi, stridor Cardiovascular Exam: Present: regular rate, normal rhythm, normal heart sounds. Absent: systolic murmur, diastolic murmur, rubs, gallop, clicks GI/Abdominal exam: Present: soft, normal bowel sounds. Absent: distended, tenderness, guarding, rebound, rigid Extremities exam: Present: normal inspection, full ROM, normal capillary refill. Absent: tenderness, pedal edema, joint swelling, calf tenderness Back exam: Present: normal inspection Neurological exam: Present: alert, oriented X3, CN II-XII intact Skin exam: Present: warm, dry, intact, normal color. Absent: rash Course Vital Signs 10/24/24 10/24/24 11:33 16:27 Temperature 97.6 F 97.5 F L Pulse Rate 97 106 H Respiratory 18 18 Rate Blood Pressure 141/90 135/90 O2 Sat by Pulse 98 Oximetry Medical Decision Making - Medical Decision Making Was pt. sent in by a medical professional or institution (, [employer], [employer], urgent care, hospital, or correction...) When possible be specific @ -Patient was advised by charge rn report to the emergency department for further evaluation and Did you speak to anyone other than the patient for history (EMS, parent, family, police, friend...)? What history was obtained from this source @ -No Did you review nursing and triage notes (agree or disagree)? Why? @ -I reviewed and agree with nursing and triage notes Were old charts reviewed (outside hosp., previous admission, EMS record, old EKG, old radiological studies, urgent care reports/EKG's, correction records)? Report findings @ -No old charts were reviewed Differential Diagnosis (chest pain, altered mental status, abdominal pain women, abdominal pain men, vaginal bleeding, weakness, fever, dyspnea, syncope, headache, dizziness, GI bleed, back pain, seizure, CVA, palpatations, mental health, musculoskeletal)? @ -Differential GI Bleed: Esophageal varices, aortoenteric fistula, Vilma-Womack, gastritis, peptic ulcer disease, diverticulosis, inflammatory bowel disease, hemorrhoids, fissure, colitis, malignancy, Meckel's diverticulum, this is not meant to be an all- inclusive list. EKG interpreted by me (3pts min.). @ -none X-rays interpreted by me (1pt min.). @ -Chest x-ray reveals borderline heart size with suspected underlying COPD with no definitive acute process identified. CT interpreted by me (1pt min.). @ -None done U/S interpreted by me (1pt. min.). @ -None done What testing was considered but not performed or refused? (CT, X-rays, U/S, labs)? Why? @ -None What meds were considered but not given or refused? Why? @ -None Did you discuss the management of the patient with other professionals (professionals i.e. , [employer], [employer], lab, RT, psych nurse, social problems specialist, collections assistant, teacher, engineering officer, medical case worker)? Give summary @ -No Was smoking cessation discussed for >3mins.? @ -No Was critical care preformed (if so, how long)? @ -No Were there social determinants of health that impacted care today? How? (Micaela elessness, low income, unemployed, alcoholism, drug addiction, transportation, low edu. Level, literacy, decrease access to med. care, penitentiary, rehab)? @ -No Was there de-escalation of care discussed even if they declined (Discuss DNR or withdrawal of care, Hospice)? DNR status @ -No What co-morbidities impacted this encounter? (DM, HTN, Smoking, COPD, CAD, Cancer, CVA, ARF, Chemo, Hep., AIDS, mental health diagnosis, sleep apnea, morbid obesity)? @ -None Was patient admitted / discharged? Hospital course, mention meds given and route, prescriptions, significant lab abnormalities, going to OR and other pertinent info. @ -Discharged. 74-year-old female with hemoptysis and hematemesis. On my evaluation patient is resting up in no signs acute distress. Vitals are stable. There is no noted overall pallor. Patient's cardiopulmonary examination within normal limits. Patient's laboratory results remarkable for mild leukocytosis 11.3 and elevated neutrophils of 11.1 which is likely reactive secondary to emesis. hemoglobin and hematocrit are stable elevated BUN of 50. Discussed with patient at bedside recommend that she be admitted with GI on consult for further evaluation however patient has declined this time stating that she would like to go home. She states that she will follow-up outpatient with her charge rn and primary care provider within the next week for further evaluation. Again recommend that patient stays in the hospital however she has declined at this time. All questions have been answered at bedside and strict return parameters lonnie with the patient she is verbalized understanding. Case discussed with my attending Dr. Pineda. Undiagnosed new problem with uncertain prognosis? @ -No Drug Therapy requiring intensive monitoring for toxicity (Heparin, Nitro, Insulin, Cardizem)? @ -No Were any procedures done? @ -No Diagnosis/symptom? @ -hemoptysis, emesis Acute, or Chronic, or Acute on Chronic? @ -Acute Uncomplicated (without systemic symptoms) or Complicated (systemic symptoms)? @ -uncomplicated Side effects of treatment? @ -No Exacerbation, Progression, or Severe Exacerbation? @ -No Poses a threat to life or bodily function? How? (Chest pain, USA, OK, pneumonia, PE, COPD, DKA, ARF, appy, cholecystitis, CVA, Diverticulitis, Homicidal, Suicidal, threat to staff... and all critical care pts) @ -No - Lab Data Result diagrams: 05/31/24 12:21 05/31/24 12:21 Lab Results 05/31/24 05/31/24 05/31/24 Range/Units 12:21 12:21 12:21 WBC 13.3 H (3.8-10.6) k/uL RBC 4.07 (3.80-5.40) m/uL Hgb 12.0 (11.4-16.0) gm/dL Hct 37.4 (34.0-46.0) % MCV 92.1 (80.0-100.0) fL MCH 29.5 (25.0-35.0) pg MCHC 32.1 (31.0-37.0) g/dL RDW 15.1 (11.5-15.5) % Plt Count 426 (150-450) k/uL MPV 8.8 Neutrophils % 84 % Lymphocytes % 10 % Monocytes % 5 % Eosinophils % 0 % Basophils % 0 % Neutrophils # 11.1 H (1.3-7.7) k/uL Lymphocytes # 1.3 (1.0-4.8) k/uL Monocytes # 0.6 (0-1.0) k/uL Eosinophils # 0.1 (0-0.7) k/uL Basophils # 0.1 (0-0.2) k/uL Hypochromasia Slight PT 10.2 (10.0-12.5) sec INR 0.9 (<1.2) APTT 21.1 L (22.0-30.0) sec Sodium 142 (137-145) mmol/L Potassium 4.7 (3.5-5.1) mmol/L Chloride 112 H (98-107) mmol/L Carbon Dioxide 21 L (22-30) mmol/L Anion Gap 9 mmol/L BUN 50 H (7-17) mg/dL Creatinine 1.05 H (0.52-1.04) mg/dL Est GFR (CKD-EPI)AfAm 60 (>60 ml/min/1.73 sqM) Est GFR (CKD-EPI)NonAf 52 (>60 ml/min/1.73 sqM) Glucose 108 H (74-99) mg/dL Calcium 9.1 (8.4-10.2) mg/dL Magnesium 1.8 (1.6-2.3) mg/dL Total Bilirubin 1.1 (0.2-1.3) mg/dL AST 37 H (14-36) U/L ALT 33 (4-34) U/L Alkaline Phosphatase 148 H (38-126) U/L Total Protein 7.0 (6.3-8.2) g/dL Albumin 4.3 (3.5-5.0) g/dL Disposition Clinical Impression: Hemoptysis Disposition: HOME SELF-CARE Condition: Good Instructions (If sedation given, give patient instructions): Gastrointestinal Bleeding (ED) Additional Instructions: Please return to the Emergency Department if symptoms worsen or any other concerns. Recommend that you contact your charge rn to schedule appointment within the next 1 to 3 days. Is patient prescribed a controlled substance at d/c from ED?: No Referrals: Gabriel Sarabia Jr, [Primary Care Provider] - 1-2 days Time of Disposition: 16:13
[2024-05-31 12:40] LABS: Basophils # (A) 0.1 k/uL (0-0.2); Basophils % (A) 0 %; Eosinophils # (A) 0.1 k/uL (0-0.7); Eosinophils % (A) 0 %; HCT 37.4 % (34.0-46.0); Hypochromasia Slight; Lymphocytes # (A) 1.3 k/uL (1.0-4.8); Lymphocytes % (A) 10 %; MCH 29.5 pg (25.0-35.0); MCHC 32.1 g/dL (31.0-37.0); MCV 92.1 fL (80.0-100.0); Mean Platelet Volume 8.8; Monocytes # (A) 0.6 k/uL (0-1.0); Monocytes % (A) 5 %; Neutrophils # (A) 11.1 k/uL (1.3-7.7); Neutrophils % (A) 84 %; Platelet Count 426 k/uL (150-450); RBC 4.07 m/uL (3.80-5.40); RDW 15.1 % (11.5-15.5); WBC 13.3 k/uL (3.8-10.6)
[2024-05-31 12:45] LABS: ALT 33 U/L (4-34); AST 37 U/L (14-36); African American GFR (CKD) 60 (>60 ml/min/1.73 sqM); Albumin 4.3 g/dL (3.5-5.0); Alkaline Phosphatase 148 U/L (38-126); Anion Gap 9 mmol/L; Blood Urea Nitrogen 50 mg/dL (7-17); Calcium 9.1 mg/dL (8.4-10.2); Carbon Dioxide 21 mmol/L (22-30); Chloride 112 mmol/L (98-107); Glucose 108 mg/dL (74-99); Magnesium 1.8 mg/dL (1.6-2.3); Non-African American GFR(CKD) 52 (>60 ml/min/1.73 sqM); Potassium 4.7 mmol/L (3.5-5.1); Sodium 142 mmol/L (137-145); Total Bilirubin 1.1 mg/dL (0.2-1.3)
[2024-05-31 13:04] LABS: INR 0.9 (<1.2); Prothrombin Time 10.2 sec (10.0-12.5)
[2024-05-31 13:05] LABS: Partial Thromboplastin Time 21.1 sec (22.0-30.0)
--- NOTE | 2024-05-31 13:17 | XR ---
EXAMINATION TYPE: XR chest 2V DATE OF EXAM: 05/31/2024 COMPARISON: 04/19/2019 HISTORY: 74-year-old female hemoptysis TECHNIQUE: PA and lateral views FINDINGS: Heart is borderline in size. Large rounded lucency with air-fluid level projecting behind the heart. Hyperinflation. No consolidation or pleural effusion seen. IMPRESSION: Borderline heart size and suspected underlying COPD. Large hiatal hernia projecting behind the heart. Otherwise, no definite acute process. [facility], , 05/31/2024 1:15 PM
[2024-05-31] MEDS: ONDANSETRON 4 MG ODT STARTER PACK 2 TAB BTL PO STA (16:27)
[2024-05-31 16:28] VITALS: BP 135/90; PULSE 106; TEMP 97.5
== END 2024-05-31 16:32 | disposition home or self-care (01) ==
LOC: EC 11:15
CPT/HCPCS: 36415; 71046; 80053; 83735; 85025; 85610; 85730; 93005; 99285

== ENCOUNTER 2024-06-22 13:45 | Inpatient (IN) | payer MEDICARE ==
[2024-06-22] MEDS: PANTOPRAZOLE 40 MG/10 ML VIAL IVP STA (14:31)
[2024-06-22 14:35] LABS: Anisocytosis Slight; Basophils % (A) 1 %; Eosinophils # (A) 0.1 k/uL (0-0.7); Eosinophils % (A) 1 %; Hypochromasia Marked; Lymphocytes # (A) 1.1 k/uL (1.0-4.8); Lymphocytes % (A) 19 %; MCH 27.4 pg (25.0-35.0); MCV 88.5 fL (80.0-100.0); Monocytes # (A) 0.3 k/uL (0-1.0); Monocytes % (A) 6 %; Neutrophils # (A) 4.2 k/uL (1.3-7.7); Neutrophils % (A) 71 %; Platelet Count 374 k/uL (150-450); Poikilocytosis Moderate; RBC 3.28 m/uL (3.80-5.40); RDW 16.2 % (11.5-15.5); WBC 5.9 k/uL (3.8-10.6)
[2024-06-22 14:46] LABS: ALT 20 U/L (4-34); AST 34 U/L (14-36); African American GFR (CKD) 68 (>60 ml/min/1.73 sqM); Albumin 4.1 g/dL (3.5-5.0); Alkaline Phosphatase 114 U/L (38-126); Anion Gap 6 mmol/L; Blood Urea Nitrogen 24 mg/dL (7-17); Calcium 8.7 mg/dL (8.4-10.2); Carbon Dioxide 27 mmol/L (22-30); Chloride 106 mmol/L (98-107); Glucose 106 mg/dL (74-99); Lipase 306 U/L (23-300); Magnesium 1.8 mg/dL (1.6-2.3); Non-African American GFR(CKD) 59 (>60 ml/min/1.73 sqM); Potassium 4.3 mmol/L (3.5-5.1); Sodium 139 mmol/L (137-145); Total Protein 6.6 g/dL (6.3-8.2)
[2024-06-22 15:12] LABS: INR 0.9 (<1.2)
[2024-06-22 15:18] LABS: Partial Thromboplastin Time 21.3 sec (22.0-30.0)
[2024-06-22] MEDS: MORPHINE SULFATE 4 MG/ML SYRINGE IVP STA (15:31)
[2024-06-22] MEDS ORDERED: NALOXONE 0.4 MG/ML 1 ML VIAL IV PRN (16:17)
--- NOTE | 2024-06-22 16:17 | ED ---
General Adult HPI - General Chief complaint: Recheck/Abnormal Lab/Rx Stated complaint: back pain/bleeding/SOB/Low hemolglobin Time Seen by Provider: 06/22/24 13:56 Source: patient Mode of arrival: ambulatory Limitations: no limitations - History of Present Illness Initial comments: 74-year-old female with past medical history of iron deficiency anemia, thyroid disorder, GI bleed who presents emergency department from Dr. Bowlings. Patient has been reporting some coffee-ground emesis. States that she will vomit 3 times per week. She was seen in the emergency department for similar complaint was found to be stable and so was discharged home. This was on 31 May. She saw her liberal arts teacher in office. He repeated laboratory studies which demonstrated her hemoglobin had dropped. He recommended that she come into the emergency department for further evaluation. Patient has a hiatal hernia. Was scoped in August 2022 and found to have gastritis. Patient does take Prilosec. She does admit to back pain but states this is chronic. Denies any black or bloody stools. No fevers. Denies any alcohol abuse. No other alleviating, precipitating modifying factors - Related Data Home Medications Medication Instructions Recorded Confirmed Levothyroxine Sodium [Synthroid] 100 mcg PO DAILY 08/18/17 07/04/24 Vilazodone HCl [Viibryd] 40 mg PO DAILY 02/04/22 07/04/24 buPROPion XL [Wellbutrin XL] 450 mg PO DAILY 02/04/22 07/04/24 lisinopriL [Zestril] 10 mg PO DAILY 02/04/22 07/04/24 Nitroglycerin Sl Tabs [Nitrostat] 0.4 mg SL Q5M PRN 08/04/22 07/04/24 Atorvastatin [Lipitor] 80 mg PO DAILY@1500 08/06/22 07/04/24 Omeprazole Magnesium [PriLOSEC OTC] 20 mg PO AC-BRKFST PRN 06/22/24 07/04/24 carvediloL [Coreg] 3.125 mg PO BID 06/22/24 07/04/24 Previous Rx's Medication Instructions Recorded Spironolactone [Aldactone] 25 mg PO DAILY #90 tab 08/20/17 Allergies Allergy/AdvReac Type Severity Reaction Status Date / Time No Known Allergies Allergy Verified 07/04/24 08:49 Review of Systems ROS Statement: Those systems with pertinent positive or pertinent negative responses have been documented in the HPI. ROS Other: All systems not noted in ROS Statement are negative. Past Medical History Past Medical History: Blood Disorder, Coronary Artery Disease (CAD), GERD/Reflux, Hyperlipidemia, Hypertension, Myocardial Infarction ([place]), Syncope, Thyroid Disorder Additional Past Medical History / Comment(s): diverticular dx, hemorrhoids, overactive bladder, hypothyroid. Dr Barrera for a heart cath found to have low hemaglobin in Jul 2022-could not do a heartcath at that time-received 2 units during hospital stay-Hgb 5.3-now following with hematology for anemia Last Myocardial Infarction Date:: 08-18-17 History of Any Multi-Drug Resistant Organisms: None Reported Past Surgical History: Appendectomy, Heart Catheterization With Stent, Hysterectomy, Tonsillectomy Additional Past Surgical History / Comment(s): Multiple bilateral breast benign bxs, colonoscopies/polypectomies, thyroid nodule removed Past Anesthesia/Blood Transfusion Reactions: No Reported Reaction Additional Past Anesthesia/Blood Transfusion Reaction / Comment(s): no issues with blood transfusion Date of Last Stent Placement:: 08-18-17 Past Psychological History: Depression Smoking Status: Former smoker Past Alcohol Use History: Occasional Past Drug Use History: None Reported - Past Family History Mother Additional Family Medical History / Comment(s): Depression Father Family Medical History: Coronary Artery Disease (CAD) General Exam Limitations: no limitations General appearance: alert, in no apparent distress Head exam: Present: atraumatic, normocephalic, normal inspection Eye exam: Present: normal appearance, PERRL, EOMI. Absent: scleral icterus, conjunctival injection, periorbital swelling ENT exam: Present: normal exam, mucous membranes moist Neck exam: Present: normal inspection. Absent: tenderness, meningismus, lymphadenopathy Respiratory exam: Present: normal lung sounds bilaterally. Absent: respiratory distress, wheezes, rales, rhonchi, stridor Cardiovascular Exam: Present: regular rate, normal rhythm, normal heart sounds. Absent: systolic murmur, diastolic murmur, rubs, gallop, clicks GI/Abdominal exam: Present: soft, normal bowel sounds. Absent: distended, tenderness, guarding, rebound, rigid Extremities exam: Present: normal inspection, full ROM, normal capillary refill. Absent: tenderness, pedal edema, joint swelling, calf tenderness Back exam: Present: normal inspection Neurological exam: Present: alert, oriented X3, CN II-XII intact Psychiatric exam: Present: normal affect, normal mood Skin exam: Present: warm, dry, intact, normal color. Absent: rash Course Vital Signs 06/22/24 06/22/24 06/22/24 13:49 14:40 15:30 Temperature 98 F 98.3 F Pulse Rate 89 81 80 Respiratory 20 18 20 Rate Blood Pressure 116/74 125/74 129/90 O2 Sat by Pulse 97 98 96 Oximetry 06/22/24 06/22/24 06/22/24 16:20 17:05 17:48 Temperature 98.5 F 98.3 F Pulse Rate 84 79 84 Respiratory 17 17 16 Rate Blood Pressure 127/76 107/77 123/77 O2 Sat by Pulse 96 96 98 Oximetry Medical Decision Making - Medical Decision Making Was pt. sent in by a medical professional or institution (, PA, MILL MANAGER, urgent care, hospital, or [facility]...) When possible be specific @ -Dr. Montgomery Did you speak to anyone other than the patient for history (EMS, parent, family, police, friend...)? What history was obtained from this source @ -Spoke with Dr. Mcbride for history Did you review nursing and triage notes (agree or disagree)? Why? @ -I reviewed and agree with nursing and triage notes Were old charts reviewed (outside hosp., previous admission, EMS record, old EKG, old radiological studies, urgent care reports/EKG's, [facility] records)? Report findings @ -No old charts were reviewed Differential Diagnosis (chest pain, altered mental status, abdominal pain women, abdominal pain men, vaginal bleeding, weakness, fever, dyspnea, syncope, headache, dizziness, GI bleed, back pain, seizure, CVA, palpatations, mental health, musculoskeletal)? @ -Differential GI Bleed: Esophageal varices, aortoenteric fistula, Vilma-Womack, gastritis, peptic ulcer disease, diverticulosis, inflammatory bowel disease, hemorrhoids, fissure, colitis, malignancy, Meckel's diverticulum, this is not meant to be an all- inclusive list. EKG interpreted by me (3pts min.). @ -Not done X-rays interpreted by me (1pt min.). @ -None done CT interpreted by me (1pt min.). @ -None done U/S interpreted by me (1pt. min.). @ -None done What testing was considered but not performed or refused? (CT, X-rays, U/S, labs)? Why? @ -None What meds were considered but not given or refused? Why? @ -None Did you discuss the management of the patient with other professionals (professionals i.e. , PA, MILL MANAGER, lab, RT, psych nurse, social media coordinator, live games dealer, teacher, dog control officer, special education case manager)? Give summary @ -Spoke with Dr. Colorado who was agreeable to consulting on the patient Was smoking cessation discussed for >3mins.? @ -No Was critical care preformed (if so, how long)? @ -No Were there social determinants of health that impacted care today? How? (Homelessness, low income, unemployed, alcoholism, drug addiction, transportation, low edu. Level, literacy, decrease access to med. care, long term, rehab)? @ -No Was there de-escalation of care discussed even if they declined (Discuss DNR or withdrawal of care, Hospice)? DNR status @ -No What co-morbidities impacted this encounter? (DM, HTN, Smoking, COPD, CAD, Ca ncer, CVA, ARF, Chemo, Hep., AIDS, mental health diagnosis, sleep apnea, morbid obesity)? @ -Hypertension, hyperlipidemia Was patient admitted / discharged? Hospital course, mention meds given and ro daniel, prescriptions, significant lab abnormalities, going to OR and other pertinent info. @ -Upon arrival patient seen and evaluated in bed 3. Thorough history and physical exam was performed. Laboratory studies were conducted. I did discuss the need for monitoring. GI is not available. I did recommend transfer to outside facility with GI capabilities. Patient is adamant that she wants to st ay hospitalized at our facility. Has been scoped before by Dr. Barnett. I did reach out for Dr. Colorado as he is on-call. He was agreeable to accepting the consult. Patient admitted to Dr. Amin with Dr. Colorado on consult. Patient is aware of the risks of being admitted to our facility without GI capabilities including permanent disability and even . Undiagnosed new problem with uncertain prognosis? @ -No Drug Therapy requiring intensive monitoring for toxicity (Heparin, Nitro, Insulin, Cardizem)? @ -No Were any procedures done? @ -No Diagnosis/symptom? @ -Acute on chronic anemia, acute GI bleed Acute, or Chronic, or Acute on Chronic? @ -Acute on chronic Uncomplicated (without systemic symptoms) or Complicated (systemic symptoms)? @ -Complicated Side effects of treatment? @ -No Exacerbation, Progression, or Severe Exacerbation? @ -No Poses a threat to life or bodily function? How? (Chest pain, [place], [place], pneumonia, PE, COPD, DKA, ARF, appy, cholecystitis, CVA, Diverticulitis, Homicidal, Suicidal, threat to staff... and all critical care pts) @ -No - Lab Data Result diagrams: 06/26/24 14:37 06/26/24 03:14 Lab Results 06/22/24 06/22/24 06/22/24 Range/Units 14:07 14:07 14:07 WBC 5.9 (3.8-10.6) k/uL RBC 3.28 L (3.80-5.40) m/uL Hgb 9.0 L D (11.4-16.0) gm/dL Hct 29.0 L (34.0-46.0) % MCV 88.5 (80.0-100.0) fL MCH 27.4 (25.0-35.0) pg MCHC 31.0 (31.0-37.0) g/dL RDW 16.2 H (11.5-15.5) % Plt Count 374 (150-450) k/uL MPV 8.0 Neutrophils % 71 % Neutrophils % (Manual) % Lymphocytes % 19 % Lymphocytes % (Manual) % Monocytes % 6 % Monocytes % (Manual) % Eosinophils % 1 % Eosinophils % (Manual) % Basophils % 1 % Neutrophils # 4.2 (1.3-7.7) k/uL Neutrophils # (Manual) (1.3-7.7) k/uL Lymphocytes # 1.1 (1.0-4.8) k/uL Lymphocytes # (Manual) (1.0-4.8) k/uL Monocytes # 0.3 (0-1.0) k/uL Monocytes # (Manual) (0-1.0) k/uL Eosinophils # 0.1 (0-0.7) k/uL Eosinophils # (Manual) (0-0.7) k/uL Basophils # 0.0 (0-0.2) k/uL Nucleated RBCs (0-0) /100 WBC Manual Slide Review Hypochromasia Marked Poikilocytosis Moderate Anisocytosis Slight Tear Drop Cells Fragmented RBCs Retic Count (0.5-2.0) % Haptoglobin (31.2-198.0) mg/dL PT 10.0 (10.0-12.5) sec INR 0.9 (<1.2) APTT 21.3 L (22.0-30.0) sec Sodium 139 (137-145) mmol/L Potassium 4.3 (3.5-5.1) mmol/L Chloride 106 (98-107) mmol/L Carbon Dioxide 27 (22-30) mmol/L Anion Gap 6 mmol/L BUN 24 H (7-17) mg/dL Creatinine 0.95 (0.52-1.04) mg/dL Est GFR (CKD-EPI)AfAm 68 (>60 ml/min/1.73 sqM) Est GFR (CKD-EPI)NonAf 59 (>60 ml/min/1.73 sqM) Glucose 106 H (74-99) mg/dL Plasma Lactic Acid Rl (0.7-2.0) mmol/L Calcium 8.7 (8.4-10.2) mg/dL Magnesium 1.8 (1.6-2.3) mg/dL Iron (50-170) UG/DL TIBC (228-460) UG/DL % Saturation (12.00-45.00) Transferrin (204.0-354.0) mg/dL Ferritin (10.0-291.0) ng/mL Total Bilirubin 1.0 (0.2-1.3) mg/dL AST 34 (14-36) U/L ALT 20 (4-34) U/L Alkaline Phosphatase 114 (38-126) U/L Lactate Dehydrogenase (120-246) U/L Troponin I (0.000-0.034) ng/mL Total Protein 6.6 (6.3-8.2) g/dL Albumin 4.1 (3.5-5.0) g/dL Lipase 306 H (23-300) U/L Vitamin B12 (200.0-944.0) pg/mL Folate (4.40-31.00) ng/mL Stool Occult Blood (Negative) Blood Type Blood Type Recheck Bld Type Recheck Status Antibody Screen Spec Expiration Date 06/22/24 06/22/24 06/22/24 Range/Units 14:07 14:07 14:07 WBC (3.8-10.6) k/uL RBC (3.80-5.40) m/uL Hgb (11.4-16.0) gm/dL Hct (34.0-46.0) % MCV (80.0-100.0) fL MCH (25.0-35.0) pg MCHC (31.0-37.0) g/dL RDW (11.5-15.5) % Plt Count (150-450) k/uL MPV Neutrophils % % Neutrophils % (Manual) % Lymphocytes % % Lymphocytes % (Manual) % Monocytes % % Monocytes % (Manual) % Eosinophils % % Eosinophils % (Manual) % Basophils % % Neutrophils # (1.3-7.7) k/uL Neutrophils # (Manual) (1.3-7.7) k/uL Lymphocytes # (1.0-4.8) k/uL Lymphocytes # (Manual) (1.0-4.8) k/uL Monocytes # (0-1.0) k/uL Monocytes # (Manual) (0-1.0) k/uL Eosinophils # (0-0.7) k/uL Eosinophils # (Manual) (0-0.7) k/uL Basophils # (0-0.2) k/uL Nucleated RBCs (0-0) /100 WBC Manual Slide Review Hypochromasia Poikilocytosis Anisocytosis Tear Drop Cells Fragmented RBCs Retic Count (0.5-2.0) % Haptoglobin (31.2-198.0) mg/dL PT (10.0-12.5) sec INR (<1.2) APTT (22.0-30.0) sec Sodium (137-145) mmol/L Potassium (3.5-5.1) mmol/L Chloride (98-107) mmol/L Carbon Dioxide (22-30) mmol/L Anion Gap mmol/L BUN (7-17) mg/dL Creatinine (0.52-1.04) mg/dL Est GFR (CKD-EPI)AfAm (>60 ml/min/1.73 sqM) Est GFR (CKD-EPI)NonAf (>60 ml/min/1.73 sqM) Glucose (74-99) mg/dL Plasma Lactic Acid Rl 1.7 (0.7-2.0) mmol/L Calcium (8.4-10.2) mg/dL Magnesium (1.6-2.3) mg/dL Iron (50-170) UG/DL TIBC (228-460) UG/DL % Saturation (12.00-45.00) Transferrin (204.0-354.0) mg/dL Ferritin (10.0-291.0) ng/mL Total Bilirubin (0.2-1.3) mg/dL AST (14-36) U/L ALT (4-34) U/L Alkaline Phosphatase (38-126) U/L Lactate Dehydrogenase (120-246) U/L Troponin I <0.012 (0.000-0.034) ng/mL Total Protein (6.3-8.2) g/dL Albumin (3.5-5.0) g/dL Lipase (23-300) U/L Vitamin B12 (200.0-944.0) pg/mL Folate (4.40-31.00) ng/mL Stool Occult Blood Negative (Negative) Blood Type Blood Type Recheck Bld Type Recheck Status Antibody Screen Spec Expiration Date 06/22/24 06/23/24 06/23/24 Range/Units 14:25 07:21 07:21 WBC 4.4 (3.8-10.6) k/uL RBC 3.03 L (3.80-5.40) m/uL Hgb 8.2 L (11.4-16.0) gm/dL Hct 27.4 L (34.0-46.0) % MCV 90.4 (80.0-100.0) fL MCH 26.9 (25.0-35.0) pg MCHC 29.7 L (31.0-37.0) g/dL RDW 16.2 H (11.5-15.5) % Plt Count 321 (150-450) k/uL MPV 8.9 Neutrophils % 62 % Neutrophils % (Manual) % Lymphocytes % 22 % Lymphocytes % (Manual) % Monocytes % 9 % Monocytes % (Manual) % Eosinophils % 2 % Eosinophils % (Manual) % Basophils % 1 % Neutrophils # 2.7 (1.3-7.7) k/uL Neutrophils # (Manual) (1.3-7.7) k/uL Lymphocytes # 1.0 (1.0-4.8) k/uL Lymphocytes # (Manual) (1.0-4.8) k/uL Monocytes # 0.4 (0-1.0) k/uL Monocytes # (Manual) (0-1.0) k/uL Eosinophils # 0.1 (0-0.7) k/uL Eosinophils # (Manual) (0-0.7) k/uL Basophils # 0.0 (0-0.2) k/uL Nucleated RBCs (0-0) /100 WBC Manual Slide Review Hypochromasia Marked Poikilocytosis Moderate Anisocytosis Slight Tear Drop Cells Fragmented RBCs Retic Count (0.5-2.0) % Haptoglobin (31.2-198.0) mg/dL PT (10.0-12.5) sec INR (<1.2) APTT (22.0-30.0) sec Sodium 139 (137-145) mmol/L Potassium 4.0 (3.5-5.1) mmol/L Chloride 102 (98-107) mmol/L Carbon Dioxide 31 H (22-30) mmol/L Anion Gap 6 mmol/L BUN 20 H (7-17) mg/dL Creatinine 1.07 H (0.52-1.04) mg/dL Est GFR (CKD-EPI)AfAm 59 (>60 ml/min/1.73 sqM) Est GFR (CKD-EPI)NonAf 51 (>60 ml/min/1.73 sqM) Glucose 101 H (74-99) mg/dL Plasma Lactic Acid Rl (0.7-2.0) mmol/L Calcium 8.5 (8.4-10.2) mg/dL Magnesium (1.6-2.3) mg/dL Iron (50-170) UG/DL TIBC (228-460) UG/DL % Saturation (12.00-45.00) Transferrin (204.0-354.0) mg/dL Ferritin (10.0-291.0) ng/mL Total Bilirubin (0.2-1.3) mg/dL AST (14-36) U/L ALT (4-34) U/L Alkaline Phosphatase (38-126) U/L Lactate Dehydrogenase (120-246) U/L Troponin I (0.000-0.034) ng/mL Total Protein (6.3-8.2) g/dL Albumin (3.5-5.0) g/dL Lipase (23-300) U/L Vitamin B12 (200.0-944.0) pg/mL Folate (4.40-31.00) ng/mL Stool Occult Blood (Negative) Blood Type O Positive Blood Type Recheck O Pos Bld Type Recheck Status No Antibody Screen NEGATIVE Spec Expiration Date 06/25/2024 - 232406/23/24 06/24/24 06/24/24 Range/Units 17:42 03:24 03:24 WBC 5.2 (3.8-10.6) k/uL RBC 3.06 L (3.80-5.40) m/uL Hgb 8.3 L (11.4-16.0) gm/dL Hct 27.9 L (34.0-46.0) % MCV 91.1 (80.0-100.0) fL MCH 27.3 (25.0-35.0) pg MCHC 29.9 L (31.0-37.0) g/dL RDW 15.9 H (11.5-15.5) % Plt Count 329 (150-450) k/uL MPV 8.4 Neutrophils % 58 % Neutrophils % (Manual) % Lymphocytes % 29 % Lymphocytes % (Manual) % Monocytes % 8 % Monocytes % (Manual) % Eosinophils % 2 % Eosinophils % (Manual) % Basophils % 0 % Neutrophils # 3.0 (1.3-7.7) k/uL Neutrophils # (Manual) (1.3-7.7) k/uL Lymphocytes # 1.5 (1.0-4.8) k/uL Lymphocytes # (Manual) (1.0-4.8) k/uL Monocytes # 0.4 (0-1.0) k/uL Monocytes # (Manual) (0-1.0) k/uL Eosinophils # 0.1 (0-0.7) k/uL Eosinophils # (Manual) (0-0.7) k/uL Basophils # 0.0 (0-0.2) k/uL Nucleated RBCs (0-0) /100 WBC Manual Slide Review Hypochromasia Marked Poikilocytosis Slight Anisocytosis Tear Drop Cells Fragmented RBCs Retic Count 4.2 H (0.5-2.0) % Haptoglobin 92.7 (31.2-198.0) mg/dL PT (10.0-12.5) sec INR (<1.2) APTT (22.0-30.0) sec Sodium (137-145) mmol/L Potassium (3.5-5.1) mmol/L Chloride (98-107) mmol/L Carbon Dioxide (22-30) mmol/L Anion Gap mmol/L BUN (7-17) mg/dL Creatinine (0.52-1.04) mg/dL Est GFR (CKD-EPI)AfAm (>60 ml/min/1.73 sqM) Est GFR (CKD-EPI)NonAf (>60 ml/min/1.73 sqM) Glucose (74-99) mg/dL Plasma Lactic Acid Rl (0.7-2.0) mmol/L Calcium (8.4-10.2) mg/dL Magnesium (1.6-2.3) mg/dL Iron (50-170) UG/DL TIBC (228-460) UG/DL % Saturation (12.00-45.00) Transferrin (204.0-354.0) mg/dL Ferritin (10.0-291.0) ng/mL Total Bilirubin (0.2-1.3) mg/dL AST (14-36) U/L ALT (4-34) U/L Alkaline Phosphatase (38-126) U/L Lactate Dehydrogenase (120-246) U/L Troponin I (0.000-0.034) ng/mL Total Protein (6.3-8.2) g/dL Albumin (3.5-5.0) g/dL Lipase (23-300) U/L Vitamin B12 (200.0-944.0) pg/mL Folate (4.40-31.00) ng/mL Stool Occult Blood (Negative) Blood Type Blood Type Recheck Bld Type Recheck Status Antibody Screen Spec Expiration Date 06/24/24 06/24/24 06/25/24 Range/Units 03:24 03:24 03:08 WBC 3.7 L (3.8-10.6) k/uL RBC 2.83 L (3.80-5.40) m/uL Hgb 7.7 L (11.4-16.0) gm/dL Hct 25.0 L (34.0-46.0) % MCV 88.5 (80.0-100.0) fL MCH 27.1 (25.0-35.0) pg MCHC 30.7 L (31.0-37.0) g/dL RDW 16.0 H (11.5-15.5) % Plt Count 294 (150-450) k/uL MPV 9.3 Neutrophils % % Neutrophils % (Manual) 56 % Lymphocytes % % Lymphocytes % (Manual) 39 % Monocytes % % Monocytes % (Manual) 3 % Eosinophils % % Eosinophils % (Manual) 2 % Basophils % % Neutrophils # (1.3-7.7) k/uL Neutrophils # (Manual) 2.07 (1.3-7.7) k/uL Lymphocytes # (1.0-4.8) k/uL Lymphocytes # (Manual) 1.44 (1.0-4.8) k/uL Monocytes # (0-1.0) k/uL Monocytes # (Manual) 0.11 (0-1.0) k/uL Eosinophils # (0-0.7) k/uL Eosinophils # (Manual) 0.07 (0-0.7) k/uL Basophils # (0-0.2) k/uL Nucleated RBCs 0 (0-0) /100 WBC Manual Slide Review Performed Hypochromasia Marked Poikilocytosis Moderate Anisocytosis Slight Tear Drop Cells Present Fragmented RBCs Present Retic Count (0.5-2.0) % Haptoglobin (31.2-198.0) mg/dL PT (10.0-12.5) sec INR (<1.2) APTT (22.0-30.0) sec Sodium (137-145) mmol/L Potassium (3.5-5.1) mmol/L Chloride (98-107) mmol/L Carbon Dioxide (22-30) mmol/L Anion Gap mmol/L BUN (7-17) mg/dL Creatinine (0.52-1.04) mg/dL Est GFR (CKD-EPI)AfAm (>60 ml/min/1.73 sqM) Est GFR (CKD-EPI)NonAf (>60 ml/min/1.73 sqM) Glucose (74-99) mg/dL Plasma Lactic Acid Rl (0.7-2.0) mmol/L Calcium (8.4-10.2) mg/dL Magnesium (1.6-2.3) mg/dL Iron 12 L (50-170) UG/DL TIBC 382 (228-460) UG/DL % Saturation 3.14 L (12.00-45.00) Transferrin 273.0 (204.0-354.0) mg/dL Ferritin 12.5 (10.0-291.0) ng/mL Total Bilirubin (0.2-1.3) mg/dL AST (14-36) U/L ALT (4-34) U/L Alkaline Phosphatase (38-126) U/L Lactate Dehydrogenase 168 (120-246) U/L Troponin I (0.000-0.034) ng/mL Total Protein (6.3-8.2) g/dL Albumin (3.5-5.0) g/dL Lipase (23-300) U/L Vitamin B12 531.0 (200.0-944.0) pg/mL Folate 10.50 (4.40-31.00) ng/mL Stool Occult Blood (Negative) Blood Type Blood Type Recheck Bld Type Recheck Status Antibody Screen Spec Expiration Date Disposition Clinical Impression: Hematemesis, Symptomatic anemia Disposition: ADMITTED IP TO THIS [facility] Condition: Stable Is patient prescribed a controlled substance at d/c from ED?: No Time of Disposition: 16:17 Decision to Admit Reason: Admit from EC Decision Date: 06/22/24 Decision Time: 16:17
[2024-06-22] MEDS: carvediloL 3.125 MG TAB PO SCH (20:02)
[2024-06-22] MEDS: MORPHINE SULFATE 4 MG/ML SYRINGE IV PRN (20:02)
[2024-06-23] MEDS: LEVOTHYROXINE 100 MCG TAB PO SCH (06:05)
[2024-06-23 08:26] LABS: Anisocytosis Slight; Basophils % (A) 1 %; Eosinophils # (A) 0.1 k/uL (0-0.7); Eosinophils % (A) 2 %; HCT 27.4 % (34.0-46.0); HGB 8.2 gm/dL (11.4-16.0); Hypochromasia Marked; Lymphocytes % (A) 22 %; MCH 26.9 pg (25.0-35.0); MCHC 29.7 g/dL (31.0-37.0); MCV 90.4 fL (80.0-100.0); Mean Platelet Volume 8.9; Monocytes # (A) 0.4 k/uL (0-1.0); Monocytes % (A) 9 %; Neutrophils # (A) 2.7 k/uL (1.3-7.7); Neutrophils % (A) 62 %; Platelet Count 321 k/uL (150-450); Poikilocytosis Moderate; RBC 3.03 m/uL (3.80-5.40); RDW 16.2 % (11.5-15.5); WBC 4.4 k/uL (3.8-10.6)
[2024-06-23] MEDS: NON FORMULARY DRUG (Vilazodone Hcl [Viibryd] 40 MG Tablet) PO SCH (08:59)
[2024-06-23] MEDS: PANTOPRAZOLE 40 MG/10 ML VIAL IV SCH (09:04)
[2024-06-23] MEDS: lisinopriL 5 MG TAB PO SCH (09:05)
[2024-06-23] MEDS: buPROPion XL 150 MG TAB.ER.24H PO SCH (09:05)
[2024-06-23] MEDS: FERROUS SULFATE 325 MG TAB PO SCH (09:05)
[2024-06-23] MEDS: SPIRONOLACTONE 25 MG TAB PO SCH (09:05)
[2024-06-23 09:07] LABS: African American GFR (CKD) 59 (>60 ml/min/1.73 sqM); Anion Gap 6 mmol/L; Blood Urea Nitrogen 20 mg/dL (7-17); Calcium 8.5 mg/dL (8.4-10.2); Carbon Dioxide 31 mmol/L (22-30); Chloride 102 mmol/L (98-107); Glucose 101 mg/dL (74-99); Non-African American GFR(CKD) 51 (>60 ml/min/1.73 sqM); Sodium 139 mmol/L (137-145)
--- NOTE | 2024-06-23 12:32 | P.HPIM ---
History of Present Illness H&P Date: 06/23/24 Chief Complaint: hematemesis Yvette is a 74-year-old female. 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 She was reportedly found to have a hemoglobin drop from 12-9.0. She was sent to the emergency room for evaluation. She report to Dr. Beaver that she had several episodes of vomiting dark red blood. She does have black stools been has for a long time due to her iron use. Her hemoglobin this morning is now 8.2. She had not denies any further hematemesis. Denies any chest pains pressure shortness of breath. Just some weakness. Review of Systems All systems: negative Past Medical History Past Medical History: Blood Disorder, Coronary Artery Disease (CAD), GERD/Reflux, Hyperlipidemia, Hypertension, Myocardial Infarction ([place]), Syncope, Thyroid Disorder Additional Past Medical History / Comment(s): diverticular dx, hemorrhoids, overactive bladder, hypothyroid. Dr Barrera for a heart cath found to have low hemaglobin in Jul 2022-could not do a heartcath at that time-received 2 units during hospital stay-Hgb 5.3-now following with hematology for anemia Last Myocardial Infarction Date:: 08-18-17 History of Any Multi-Drug Resistant Organisms: None Reported Past Surgical History: Appendectomy, Heart Catheterization With Stent, Hysterectomy, Tonsillectomy Additional Past Surgical History / Comment(s): Multiple bilateral breast benign bxs, colonoscopies/polypectomies, thyroid nodule removed Past Anesthesia/Blood Transfusion Reactions: No Reported Reaction Additional Past Anesthesia/Blood Transfusion Reaction / Comment(s): no issues with blood transfusion Date of Last Stent Placement:: 08-18-17 Past Psychological History: Depression Smoking Status: Former smoker Past Alcohol Use History: Occasional Past Drug Use History: None Reported - Past Family History Mother Additional Family Medical History / Comment(s): Depression Father Family Medical History: Coronary Artery Disease (CAD) Medications and Allergies Home Medications Medication Instructions Recorded Confirmed Type Levothyroxine Sodium [Synthroid] 100 mcg PO DAILY 08/18/17 06/22/24 History Aspirin 81 mg PO DAILY #0 chew 08/20/17 06/22/24 Rx Spironolactone [Aldactone] 25 mg PO DAILY #90 tab 08/20/17 06/22/24 Rx Vilazodone HCl [Viibryd] 40 mg PO DAILY 02/04/22 06/22/24 History buPROPion XL [Wellbutrin XL] 450 mg PO DAILY 02/04/22 06/22/24 History lisinopriL [Zestril] 10 mg PO DAILY 02/04/22 06/22/24 History Nitroglycerin Sl Tabs [Nitrostat] 0.4 mg SL Q5M PRN 08/04/22 06/22/24 History Atorvastatin [Lipitor] 80 mg PO DAILY@1500 08/06/22 06/22/24 History Ferrous Sulfate [Feosol] 325 mg PO DAILY 08/17/23 06/22/24 History Omeprazole Magnesium [PriLOSEC OTC] 20 mg PO AC-BRKFST PRN 06/22/24 06/22/24 History carvediloL [Coreg] 3.125 mg PO BID 06/22/24 06/22/24 History Allergies Allergy/AdvReac Type Severity Reaction Status Date / Time No Known Allergies Allergy Verified 06/22/24 16:58 Physical Exam Vitals: Vital Signs Temp Pulse Pulse Resp BP BP Pulse Ox 06/23/24 08:00 98 F 75 16 121/73 99 06/23/24 04:00 81 16 135/81 97 06/22/24 23:20 70 14 127/77 95 06/22/24 19:38 99.5 F 86 17 136/76 95 06/22/24 18:30 99.6 F 98 16 138/67 93 L 06/22/24 17:48 98.3 F 84 16 123/77 98 06/22/24 17:05 79 17 107/77 96 06/22/24 16:20 98.5 F 84 17 127/76 96 06/22/24 15:30 80 20 129/90 96 06/22/24 14:40 98.3 F 81 18 125/74 98 06/22/24 13:49 98 F 89 20 116/74 97 Intake and Output 06/22/24 06/23/24 06/23/24 22:59 06:59 14:59 Intake Total 240 Balance 240 Intake: Oral 240 Other: Weight 71.668 kg 70.2 kg GENERAL: well-nourished elderly female in no acute distress. HEAD: Atraumatic, normocephalic. EYES: Pupils equal round and reactive to light, extraocular movements intact, sclera anicteric, conjunctiva are normal. ENT:nares patent, oropharynx clear without exudates. Moist mucous membranes. NECK: Normal range of motion, supple without lymphadenopathy or JVD, no thyro megaly LUNGS: Breath sounds clear to auscultation bilaterally and equal. No wheezes rales or rhonchi. HEART: Regular rate and rhythm 1/6 systolic murmur rsb , No rubs or gallops.S1S2 Normal ABDOMEN: Soft, nontender, normoactive bowel sounds. No guarding, no rebound. No masses appreciated. EXTREMITIES: Normal range of motion, no pitting or edema. No clubbing or cyanosis. NEUROLOGICAL: Cranial nerves II through XII grossly intact. Normal speech, normal gait. PSYCH: Normal mood, normal affect. SKIN: Warm, Dry, normal turgor, no rashes or lesions noted. Results CBC & Chem 7: 06/23/24 07:21 06/23/24 07:21 Labs: Abnormal Lab Results - Last 24 Hours (Table) 06/22/24 06/22/24 06/22/24 Range/Units 14:07 14:07 14:07 RBC 3.28 L (3.80-5.40) m/uL Hgb 9.0 L D (11.4-16.0) gm/dL Hct 29.0 L (34.0-46.0) % MCHC (31.0-37.0) g/dL RDW 16.2 H (11.5-15.5) % APTT 21.3 L (22.0-30.0) sec Carbon Dioxide (22-30) mmol/L BUN 24 H (7-17) mg/dL Creatinine (0.52-1.04) mg/dL Glucose 106 H (74-99) mg/dL Lipase 306 H (23-300) U/L 06/23/24 06/23/24 Range/Units 07:21 07:21 RBC 3.03 L (3.80-5.40) m/uL Hgb 8.2 L (11.4-16.0) gm/dL Hct 27.4 L (34.0-46.0) % MCHC 29.7 L (31.0-37.0) g/dL RDW 16.2 H (11.5-15.5) % APTT (22.0-30.0) sec Carbon Dioxide 31 H (22-30) mmol/L BUN 20 H (7-17) mg/dL Creatinine 1.07 H (0.52-1.04) mg/dL Glucose 101 H (74-99) mg/dL Lipase (23-300) U/L Thrombosis Risk Factor Assmnt - DVT/VTE Prophylaxis DVT/VTE Prophylaxis: Contraindicated - See note (active bleeding) - Choose All That Apply Any of the Below Risk Factors Present?: Yes Each Factor Represents 1 point: Obesity (BMI >25) Each Risk Factor Represents 3 Points: Age 75 years or older Thrombosis Risk Factor Assessment Total Risk Factor Score: 4 Thrombosis Risk Factor Assessment Level: Moderate Risk Assessment and Plan (1) Symptomatic anemia Current Visit: Yes Status: Acute Code(s): D64.9 - ANEMIA, UNSPECIFIED SNOMED Code(s): 334013714 (2) Hematemesis Current Visit: Yes Status: Acute Code(s): K92.0 - HEMATEMESIS SNOMED Code(s): 2146176 (3) H/O myocardial infarction, greater than 8 weeks Current Visit: Yes Status: Acute Code(s): I25.2 - OLD MYOCARDIAL INFARCTION SNOMED Code(s): 6440862 (4) GERD (gastroesophageal reflux disease) Current Visit: Yes Status: Acute Code(s): K21.9 - GASTRO-ESOPHAGEAL REFLUX DISEASE WITHOUT ESOPHAGITIS SNOMED Code(s): 798021528 (5) Mixed hyperlipidemia Current Visit: Yes Status: Acute Code(s): E78.2 - MIXED HYPERLIPIDEMIA SNOMED Code(s): 392898008 (6) Hypothyroidism Current Visit: No Status: Acute Code(s): E03.9 - HYPOTHYROIDISM, UNSPECIFIED SNOMED Code(s): 02008193 Plan: The patient was sent over to the emergency room at the behest of her bowling alley manager due to a drop in hemoglobin. It has dropped again from 04/15 0.2 today. We will continue to monitor this. We will consult General surgery for possible EGD and colonoscopy. The patient was offered transfer to a facility that has Gastroenterology available and she adamantly refused. We will repeat labs in a.m. and she will be re-evaluated next 24 hours.
--- NOTE | 2024-06-23 14:29 | P.GSCN ---
History of Present Illness Consult date: 06/23/24 History of present illness: Patient is a 74-year-old who was found to have anemia. Patient was sent in by her welt edge rounder she is found to have a urine hemoglobin from 12-9.0. She was subsequently admitted for further management. Currently she denies any abdominal pain. She states that she has had several episodes of hematemesis as well as melena, but states that she did not have any further episodes overnight. No fevers or chills. No shortness of breath or chest pain. No headache or blurry vision. Denies any hematochezia. She states that she had undergone EGD in the past year which showed evidence of gastritis. She states that she is compliant with PPI therapy. Denies any reflux disease symptoms currently. No substernal burning. She cannot recall the date of her last colonoscopy. Review of Systems Negative except for as stated above Past Medical History Past Medical History: Blood Disorder, Coronary Artery Disease (CAD), GERD/Reflux, Hyperlipidemia, Hypertension, Myocardial Infarction ([place]), Syncope, Thyroid Disorder Additional Past Medical History / Comment(s): diverticular dx, hemorrhoids, overactive bladder, hypothyroid. Dr Barrera for a heart cath found to have low hemaglobin in Jul 2022-could not do a heartcath at that time-received 2 units during hospital stay-Hgb 5.3-now following with hematology for anemia Last Myocardial Infarction Date:: 08-18-17 History of Any Multi-Drug Resistant Organisms: None Reported Past Surgical History: Appendectomy, Heart Catheterization With Stent, Hysterectomy, Tonsillectomy Additional Past Surgical History / Comment(s): Multiple bilateral breast benign bxs, colonoscopies/polypectomies, thyroid nodule removed Past Anesthesia/Blood Transfusion Reactions: No Reported Reaction Additional Past Anesthesia/Blood Transfusion Reaction / Comm: no issues with blood transfusion Date of Last Stent Placement:: 08-18-17 Past Psychological History: Depression Smoking Status: Former smoker Past Alcohol Use History: Occasional Past Drug Use History: None Reported - Past Family History Mother Additional Family Medical History / Comment(s): Depression Father Family Medical History: Coronary Artery Disease (CAD) Medications and Allergies Home Medications Medication Instructions Recorded Confirmed Type Levothyroxine Sodium [Synthroid] 100 mcg PO DAILY 08/18/17 06/22/24 History Aspirin 81 mg PO DAILY #0 chew 08/20/17 06/22/24 Rx Spironolactone [Aldactone] 25 mg PO DAILY #90 tab 08/20/17 06/22/24 Rx Vilazodone HCl [Viibryd] 40 mg PO DAILY 02/04/22 06/22/24 History buPROPion XL [Wellbutrin XL] 450 mg PO DAILY 02/04/22 06/22/24 History lisinopriL [Zestril] 10 mg PO DAILY 02/04/22 06/22/24 History Nitroglycerin Sl Tabs [Nitrostat] 0.4 mg SL Q5M PRN 08/04/22 06/22/24 History Atorvastatin [Lipitor] 80 mg PO DAILY@1500 08/06/22 06/22/24 History Ferrous Sulfate [Feosol] 325 mg PO DAILY 08/17/23 06/22/24 History Omeprazole Magnesium [PriLOSEC OTC] 20 mg PO AC-BRKFST PRN 06/22/24 06/22/24 History carvediloL [Coreg] 3.125 mg PO BID 06/22/24 06/22/24 History Allergies Allergy/AdvReac Type Severity Reaction Status Date / Time No Known Allergies Allergy Verified 06/22/24 16:58 Surgical - Exam Vital Signs Temp Pulse Resp BP Pulse Ox 98 F 89 20 116/74 97 06/22/24 13:49 06/22/24 13:49 06/22/24 13:49 06/22/24 13:49 06/22/24 13:49 Gen: AxO, NAD Pulm: non-labored respirations Abd: soft, non-tender, non-distended. No guarding/rebound/rigidity Extrem: no edema seen Results - Labs 06/23/24 07:21 06/23/24 07:21 Abnormal Lab Results - Last 24 Hours (Table) 06/22/24 06/22/24 06/22/24 Range/Units 14:07 14:07 14:07 RBC 3.28 L (3.80-5.40) m/uL Hgb 9.0 L D (11.4-16.0) gm/dL Hct 29.0 L (34.0-46.0) % MCHC (31.0-37.0) g/dL RDW 16.2 H (11.5-15.5) % APTT 21.3 L (22.0-30.0) sec Carbon Dioxide (22-30) mmol/L BUN 24 H (7-17) mg/dL Creatinine (0.52-1.04) mg/dL Glucose 106 H (74-99) mg/dL Lipase 306 H (23-300) U/L 06/23/24 06/23/24 Range/Units 07:21 07:21 RBC 3.03 L (3.80-5.40) m/uL Hgb 8.2 L (11.4-16.0) gm/dL Hct 27.4 L (34.0-46.0) % MCHC 29.7 L (31.0-37.0) g/dL RDW 16.2 H (11.5-15.5) % APTT (22.0-30.0) sec Carbon Dioxide 31 H (22-30) mmol/L BUN 20 H (7-17) mg/dL Creatinine 1.07 H (0.52-1.04) mg/dL Glucose 101 H (74-99) mg/dL Lipase (23-300) U/L Diabetes panel 06/22/24 06/23/24 Range/Units 14:07 07:21 Sodium 139 139 (137-145) mmol/L Potassium 4.3 4.0 (3.5-5.1) mmol/L Chloride 106 102 (98-107) mmol/L Carbon Dioxide 27 31 H (22-30) mmol/L BUN 24 H 20 H (7-17) mg/dL Creatinine 0.95 1.07 H (0.52-1.04) mg/dL Glucose 106 H 101 H (74-99) mg/dL Calcium 8.7 8.5 (8.4-10.2) mg/dL AST 34 (14-36) U/L ALT 20 (4-34) U/L Alkaline Phosphatase 114 (38-126) U/L Total Protein 6.6 (6.3-8.2) g/dL Albumin 4.1 (3.5-5.0) g/dL Calcium panel 06/22/24 06/23/24 Range/Units 14:07 07:21 Calcium 8.7 8.5 (8.4-10.2) mg/dL Albumin 4.1 (3.5-5.0) g/dL Pituitary panel 06/22/24 06/23/24 Range/Units 14:07 07:21 Sodium 139 139 (137-145) mmol/L Potassium 4.3 4.0 (3.5-5.1) mmol/L Chloride 106 102 (98-107) mmol/L Carbon Dioxide 27 31 H (22-30) mmol/L BUN 24 H 20 H (7-17) mg/dL Creatinine 0.95 1.07 H (0.52-1.04) mg/dL Glucose 106 H 101 H (74-99) mg/dL Calcium 8.7 8.5 (8.4-10.2) mg/dL Adrenal panel 06/22/24 06/23/24 Range/Units 14:07 07:21 Sodium 139 139 (137-145) mmol/L Potassium 4.3 4.0 (3.5-5.1) mmol/L Chloride 106 102 (98-107) mmol/L Carbon Dioxide 27 31 H (22-30) mmol/L BUN 24 H 20 H (7-17) mg/dL Creatinine 0.95 1.07 H (0.52-1.04) mg/dL Glucose 106 H 101 H (74-99) mg/dL Calcium 8.7 8.5 (8.4-10.2) mg/dL Total Bilirubin 1.0 (0.2-1.3) mg/dL AST 34 (14-36) U/L ALT 20 (4-34) U/L Alkaline Phosphatase 114 (38-126) U/L Total Protein 6.6 (6.3-8.2) g/dL Albumin 4.1 (3.5-5.0) g/dL Assessment and Plan Assessment: Patient is a 74 year old female who presents with anemia Plan: -Diet as tolerated; npo at midnight on 06/24 -Trend Hb -IV PPI therapy -PRN pain and nausea control -Tentative plan for EGD/C-scope on 06/25 -Care per skip Caro M.D. General Surgery
[2024-06-23] MEDS: ATORVASTATIN 80 MG TAB PO SCH (15:37)
--- NOTE | 2024-06-23 16:38 | P.CONS ---
History of Present Illness - Reason for Consult Consult date: 06/23/24 Requesting physician: Altaf Amin - Chief Complaint coffee ground emesis, low hemoglobin - History of Present Illness Ms. Wyatt is a very pleasant 74 yo female with multiple comorbidities including history of GIB and iron deficinecy anemia, follows with Dr. Montgomery, here from clinic for drop in Hgb and coffee ground emesis. Work up in the ER with normal WBC/plt (300's), and Hgb 9.0 from 12 on 05/31/24. CMP normal. Vitals stable. She was admitted for Hgb monitoring and GI evaluation. Repeat Hgb this am down to 8.2. Hematology history Ms Wyatt a pleasant white female, who was admitted to [facility] on 08/06/22. The patient had come in because of progressive shortness of breath over the past several weeks. Her hemoglobin was 5.3, with MCV of 62.6, and an FVC of 4.9. platelets were 292. the patient received 2 units PRBC, with increase in hemoglobin to 8.2. She was then discharged. She denies receiving any IV iron. She states that she has been taking Centrum with iron as an outpatient. On 08/19/22 hemoglobin was 9.4. The patient had an EGD and colonoscopy on 08/31/22. This showed a large hiatal hernia, with biopsies positive only for minimal chronic gastritis. Colonoscopy could not be completed because of extensive diverticulosis. The patient states that she did have an air-contrast barium enema which was apparently negative. her comparatively from 08/06/22 was essentially negative. Iron saturation was 6.7% on 09/08/72, with folate 14.6, B12 346, and ferritin 13. In 05/28, hemoglobin had been 11 with MCV low at 80.1. She was then referred here for further evaluation and recommendations. She states that she has been anemic since childhood. However it doesn't appear that this has ever been very severe. She never received blood transfusions in the past. She denies ever being on any significant iron s upplementation. The patient does take a baby aspirin since about 2018 after having a cardiac stent placed. She uses ibuprofen occasionally. She has not noted any obvious bleeding, or change in her bowels. Her last colonoscopy prior to this one was in 2010. She does report heartburn symptoms, and takes PPI regularly. it is felt that she most likely had AVM related blood loss, exacerbated by aspirin use. However as the patient needed to be on the aspirin, it was felt that it would be reasonable to continue as long as her hemoglobin could be maintained in an acceptable range with aggressive supplementation. Labs confirmed iron deficiency. She received IV iron after her visit in 10/28 she was also given a prescription for oral iron but did not start that. She also started oral iron after her visit in 11/28 most recent IV iron was in the patient fractured her left ankle due to an accidental fall, while in [place], in 10/01. She required ORIF. she has recovered well from the same. The patient was advised to discontinue the oral iron, at her visit in 05/01, due to significant constipation issues. The patient had called the office on 05/31/24, complaining of throwing up blood. She was admitted to go to the ER. Her hemoglobin was stable at 12. According to the ER note she was recommended admission and further investigations, but she refused the same. The patient called the office again on 06/22/24, stating that she had been feeling poorly, progressively over the past few days. She was having progressive shortness of breath and fatigue. When seen in the office she reported recurrent episodes of throwing up blood, after discharge from the ER, most recently around 06/24/24. These were mostly dark red to coffee grounds. She denied any fever/chills. She has been continuing on aspirin. She reports increased bloating, cramping and bowel sounds. She is also been complaining of epigastric abdominal pain and mid back pain. Her bowel movements have been much more regular, since stopping the oral iron in 05/01. She received an intra-articular injection in mid 08/31. she reports a fair energy level and endurance. No obvious bleeding. She denied any abdominal pain, or difficulty swallowing. Review of systems otherwise as per HPI and negative out of 10. Last seen on 06/22/24, and sent to the ER for acute drop in Hgb, 8.2 from 12 three weeks prior when she was in the ER for similar complaints. Past Medical History Past Medical History: Blood Disorder, Coronary Artery Disease (CAD), GERD/Reflux, Hyperlipidemia, Hypertension, Myocardial Infarction ([place]), Syncope, Thyroid Disorder Additional Past Medical History / Comment(s): diverticular dx, hemorrhoids, overactive bladder, hypothyroid. Dr Barrera for a heart cath found to have low hemaglobin in Jul 2022-could not do a heartcath at that time-received 2 units during hospital stay-Hgb 5.3-now following with hematology for anemia Last Myocardial Infarction Date:: 08-18-17 History of Any Multi-Drug Resistant Organisms: None Reported Past Surgical History: Appendectomy, Heart Catheterization With Stent, Hysterectomy, Tonsillectomy Additional Past Surgical History / Comment(s): Multiple bilateral breast benign bxs, colonoscopies/polypectomies, thyroid nodule removed Past Anesthesia/Blood Transfusion Reactions: No Reported Reaction Additional Past Anesthesia/Blood Transfusion Reaction / Comm: no issues with blood transfusion Date of Last Stent Placement:: 08-18-17 Past Psychological History: Depression Smoking Status: Former smoker Past Alcohol Use History: Occasional Past Drug Use History: None Reported - Past Family History Mother Additional Family Medical History / Comment(s): Depression Father Family Medical History: Coronary Artery Disease (CAD) Medications and Allergies Home Medications Medication Instructions Recorded Confirmed Type Levothyroxine Sodium [Synthroid] 100 mcg PO DAILY 08/18/17 06/22/24 History Aspirin 81 mg PO DAILY #0 chew 08/20/17 06/22/24 Rx Spironolactone [Aldactone] 25 mg PO DAILY #90 tab 08/20/17 06/22/24 Rx Vilazodone HCl [Viibryd] 40 mg PO DAILY 02/04/22 06/22/24 History buPROPion XL [Wellbutrin XL] 450 mg PO DAILY 02/04/22 06/22/24 History lisinopriL [Zestril] 10 mg PO DAILY 02/04/22 06/22/24 History Nitroglycerin Sl Tabs [Nitrostat] 0.4 mg SL Q5M PRN 08/04/22 06/22/24 History Atorvastatin [Lipitor] 80 mg PO DAILY@1500 08/06/22 06/22/24 History Ferrous Sulfate [Feosol] 325 mg PO DAILY 08/17/23 06/22/24 History Omeprazole Magnesium [PriLOSEC OTC] 20 mg PO AC-BRKFST PRN 06/22/24 06/22/24 History carvediloL [Coreg] 3.125 mg PO BID 06/22/24 06/22/24 History Allergies Allergy/AdvReac Type Severity Reaction Status Date / Time No Known Allergies Allergy Verified 06/22/24 16:58 Physical Exam Vitals: Vital Signs Temp Pulse Pulse Resp BP BP Pulse Ox 06/23/24 08:00 98 F 75 16 121/73 99 06/23/24 04:00 81 16 135/81 97 06/22/24 23:20 70 14 127/77 95 06/22/24 19:38 99.5 F 86 17 136/76 95 06/22/24 18:30 99.6 F 98 16 138/67 93 L 06/22/24 17:48 98.3 F 84 16 123/77 98 06/22/24 17:05 79 17 107/77 96 06/22/24 16:20 98.5 F 84 17 127/76 96 06/22/24 15:30 80 20 129/90 96 06/22/24 14:40 98.3 F 81 18 125/74 98 06/22/24 13:49 98 F 89 20 116/74 97 Intake and Output 06/22/24 06/23/24 06/23/24 22:59 06:59 14:59 Intake Total 240 Balance 240 Intake: Oral 240 Other: Weight 71.668 kg 70.2 kg Pt appears to be in no acute distress. No respiratory distress, regular heart rate. She does have conjunctival pallor. Results CBC & Chem 7: 06/23/24 07:21 06/23/24 07:21 Labs: Abnormal Lab Results - Last 24 Hours (Table) 06/22/24 06/22/24 06/22/24 Range/Units 14:07 14:07 14:07 RBC 3.28 L (3.80-5.40) m/uL Hgb 9.0 L D (11.4-16.0) gm/dL Hct 29.0 L (34.0-46.0) % MCHC (31.0-37.0) g/dL RDW 16.2 H (11.5-15.5) % APTT 21.3 L (22.0-30.0) sec Carbon Dioxide (22-30) mmol/L BUN 24 H (7-17) mg/dL Creatinine (0.52-1.04) mg/dL Glucose 106 H (74-99) mg/dL Lipase 306 H (23-300) U/L 06/23/24 06/23/24 Range/Units 07:21 07:21 RBC 3.03 L (3.80-5.40) m/uL Hgb 8.2 L (11.4-16.0) gm/dL Hct 27.4 L (34.0-46.0) % MCHC 29.7 L (31.0-37.0) g/dL RDW 16.2 H (11.5-15.5) % APTT (22.0-30.0) sec Carbon Dioxide 31 H (22-30) mmol/L BUN 20 H (7-17) mg/dL Creatinine 1.07 H (0.52-1.04) mg/dL Glucose 101 H (74-99) mg/dL Lipase (23-300) U/L Assessment and Plan Assessment: 1. GI bleed 2. Acute anemia 3. Iron deficiency Plan: Ms. Wyatt is a very pleasant 74 yo female with history of GIB and iron deficinecy anemia who is here for concerns of acute drop in her Hgb and coffee ground emesis. Work up with Hgb 9=>8.2 from 12 on 05/31/24. - Anemia work up including iron panel, B12, folate, retic, LDH/haptoglobin; IV iron - Monitor for GIB; FOBT negative however could be negative if she had acute and recent upper GIB - GI evaluation - PPI - Monitor CBC and if Hgb drops further <8, would transfuse pRBC Discussed with pt and she is agreeable. All questions answered.
[2024-06-23 18:03] LABS: Basophils % (A) 0 %; Eosinophils # (A) 0.1 k/uL (0-0.7); Eosinophils % (A) 2 %; HCT 27.9 % (34.0-46.0); HGB 8.3 gm/dL (11.4-16.0); Hypochromasia Marked; Lymphocytes # (A) 1.5 k/uL (1.0-4.8); Lymphocytes % (A) 29 %; MCH 27.3 pg (25.0-35.0); MCHC 29.9 g/dL (31.0-37.0); MCV 91.1 fL (80.0-100.0); Mean Platelet Volume 8.4; Monocytes # (A) 0.4 k/uL (0-1.0); Monocytes % (A) 8 %; Neutrophils % (A) 58 %; Platelet Count 329 k/uL (150-450); Poikilocytosis Slight; RBC 3.06 m/uL (3.80-5.40); RDW 15.9 % (11.5-15.5); WBC 5.2 k/uL (3.8-10.6)
[2024-06-24 03:51] LABS: Reticulocyte % 4.2 % (0.5-2.0)
[2024-06-24 10:12] LABS: % Iron Saturation 3.14 (12.00-45.00); Ferritin 12.5 ng/mL (10.0-291.0)
[2024-06-24] MEDS: ONDANSETRON 4 MG/2 ML VIAL IVP PRN (12:07)
--- NOTE | 2024-06-24 12:16 | P.PN ---
Subjective Progress Note Date: 06/24/24 Patient carlos stable. Her hemoglobin is 8.2. On exam vital signs appear stable. Abdomen soft. We will plan for upper and lower endoscopy in the a.m. Objective - Vital Signs Vital signs: Vital Signs Temp 98.0 F 06/24/24 07:21 Pulse 77 06/24/24 07:21 Resp 16 06/24/24 07:21 BP 122/62 06/24/24 07:21 Pulse Ox 98 06/24/24 07:21 FiO2 Intake & Output 06/23/24 06/24/24 06/24/24 18:59 06:59 18:59 Intake Total 1020 180 Balance 1020 180 Weight 70.2 kg Intake: Oral 1020 180 Other: # Voids 2 1 - Labs CBC & Chem 7: 06/23/24 17:42 06/23/24 07:21 Labs: Abnormal Lab Results - Last 24 Hours (Table) 06/23/24 06/24/24 06/24/24 Range/Units 17:42 03:24 03:24 RBC 3.06 L (3.80-5.40) m/uL Hgb 8.3 L (11.4-16.0) gm/dL Hct 27.9 L (34.0-46.0) % MCHC 29.9 L (31.0-37.0) g/dL RDW 15.9 H (11.5-15.5) % Retic Count 4.2 H (0.5-2.0) % Iron 12 L (50-170) UG/DL % Saturation 3.14 L (12.00-45.00)
--- NOTE | 2024-06-24 12:16 | P.PN ---
Subjective Progress Note Date: 06/24/24 June 24, 2024: Patient remains stable, she remains on pantoprazole for GERD and GI bleeding. She has not had any more episodes of hematemesis. Surgery has seen and is planning EGD tomorrow. She remains afebrile heart rate is controlled blood pressure is controlled and pulse oximetry is normal on room air. Hemoglobin is pending for this morning it was 8.3 last night, which is stable. Reticulocyte count is elevated 4.2, haptoglobin is normal at 92.7. Iron is low at 12 and TIBC BC is normal at 382 and iron saturation is low at 3.14. 12 and folic acid were also tested normal. Patient is feeling good spirits, does complain with shortness of breath at exertion. Not at rest. She denies any chest pain. She is having little nausea. Objective - Vital Signs Vital signs: Vital Signs Temp 98.0 F 06/24/24 07:21 Pulse 77 06/24/24 07:21 Resp 16 06/24/24 07:21 BP 122/62 06/24/24 07:21 Pulse Ox 98 06/24/24 07:21 FiO2 Intake & Output 06/23/24 06/24/24 06/24/24 18:59 06:59 18:59 Intake Total 1020 180 Balance 1020 180 Weight 70.2 kg Intake: Oral 1020 180 Other: # Voids 2 1 - Exam General: The patient is awake and alert, in no distress, and does not appear acutely ill. Neck: The neck is supple, there is no thyromegaly, lymphadenopathy, tenderness or JVD. Cardiovascular: S1S2 is normal, There is a regular rate and rhythm. No murmur, rub or gallop is appreciated. Respiratory: Lungs are clear to auscultation bilaterally, respirations are non-labored, breath sounds are equal. Gastrointestinal: Soft, non-distended,abdomen without masses or organomegaly noted. There is no rebound or guarding present. Bowel sounds are unremarkable. There is minimal tenderness to the right upper quadrant. Musculoskeletal: Normal ROM, no tenderness, There is no pedal edema. There is no calf tenderness or swelling. No cords were appreciated. Neurological: CN II-XII intact, there are no obvious motor or sensory deficits. Coordination appears grossly intact. Speech is normal. Skin: Skin is warm and dry and no rashes or lesions are noted. - Labs CBC & Chem 7: 06/23/24 17:42 06/23/24 07:21 Labs: Abnormal Lab Results - Last 24 Hours (Table) 06/23/24 06/24/24 06/24/24 Range/Units 17:42 03:24 03:24 RBC 3.06 L (3.80-5.40) m/uL Hgb 8.3 L (11.4-16.0) gm/dL Hct 27.9 L (34.0-46.0) % MCHC 29.9 L (31.0-37.0) g/dL RDW 15.9 H (11.5-15.5) % Retic Count 4.2 H (0.5-2.0) % Iron 12 L (50-170) UG/DL % Saturation 3.14 L (12.00-45.00) Assessment and Plan (1) Symptomatic anemia Current Visit: Yes Status: Acute Code(s): D64.9 - ANEMIA, UNSPECIFIED SNOMED Code(s): 345472737 (2) Hematemesis Current Visit: Yes Status: Acute Code(s): K92.0 - HEMATEMESIS SNOMED Code(s): 3393580 (3) H/O myocardial infarction, greater than 8 weeks Current Visit: Yes Status: Acute Code(s): I25.2 - OLD MYOCARDIAL INFARCTION SNOMED Code(s): 7040002 (4) GERD (gastroesophageal reflux disease) Current Visit: Yes Status: Acute Code(s): K21.9 - GASTRO-ESOPHAGEAL REFLUX DISEASE WITHOUT ESOPHAGITIS SNOMED Code(s): 650430375 (5) Mixed hyperlipidemia Current Visit: Yes Status: Acute Code(s): E78.2 - MIXED HYPERLIPIDEMIA SNOMED Code(s): 662214157 (6) Hypothyroidism Current Visit: No Status: Acute Code(s): E03.9 - HYPOTHYROIDISM, UNSPECIFIED SNOMED Code(s): 43067014 (7) RUQ pain Current Visit: Yes Status: Acute Code(s): R10.11 - RIGHT UPPER QUADRANT PAIN SNOMED Code(s): 534800838 Plan: Waiting on planned a.m. EGD, possible colonoscopy depending on surgery's wishes, she remains on Protonix, Zofran's been added for nausea, will obtain a right upper quadrant ultrasound to evaluate the pain., Surgery and hematology's notes were reviewed, will repeat labs in a.m., patient will be reevaluated the next 24 hours.
[2024-06-24] MEDS: PEG 3350 (236 GM/BTL) + LYTES 4,000 ML BOTTLE PO ONE (14:45)
[2024-06-25 03:37] LABS: Anisocytosis Slight; HGB 7.7 gm/dL (11.4-16.0); Hypochromasia Marked; MCH 27.1 pg (25.0-35.0); MCHC 30.7 g/dL (31.0-37.0); MCV 88.5 fL (80.0-100.0); Mean Platelet Volume 9.3; Platelet Count 294 k/uL (150-450); Poikilocytosis Moderate; RBC 2.83 m/uL (3.80-5.40); WBC 3.7 k/uL (3.8-10.6)
[2024-06-25 04:10] LABS: Eosinophils # (M) 0.07 k/uL (0-0.7); Lymphocytes # (M) 1.44 k/uL (1.0-4.8); Monocytes # (M) 0.11 k/uL (0-1.0); Neutrophils # (M) 2.07 k/uL (1.3-7.7); Neutrophils % (M) 56 %; Nucleated Red Blood Cells 0 /100 WBC (0-0); Total Cells Counted 100
[2024-06-25 04:17] LABS: RBC Fragments Present; Tear Drop Cells Present
--- NOTE | 2024-06-25 08:29 | US ---
EXAMINATION TYPE: US abdomen limited DATE OF EXAM: 06/25/2024 COMPARISON: None CLINICAL INDICATION: Female, 74 years old with history of ruq pain and nausea; Hx right renal cyst. TECHNIQUE: Grayscale and color Doppler imaging of the right upper quadrant was performed. 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 No evidence for acute process. 2. Right renal cyst. [facility], , 06/25/2024 8:26 AM
[2024-06-25] MEDS: SODIUM FERRIC GLUCONAT-SUCROSE 125 MG in SODIUM CHLORIDE 0.9% 100 ML IVPB SCH (10:40)
[2024-06-25] MEDS ORDERED: LIDOCAINE 1% INJ 10MG/ML (20 ML MDV) ONE (13:04)
[2024-06-25] MEDS ORDERED: PHENYLEPHRINE 10 MG/ML VIAL ONE (13:04)
[2024-06-25] MEDS ORDERED: PROPOFOL 10 MG/ML 20 ML VIAL IV ONE (13:04)
[2024-06-25] MEDS: LACTATED RINGERS 1,000 ML IV ONE (13:24)
--- NOTE | 2024-06-25 13:25 | P.OP ---
Date of Procedure: 06/25/24 Preoperative Diagnosis: Anemia GI bleed Postoperative Diagnosis: Antral gastritis Poor colon prep Procedure(s) Performed: EGD Colonoscopy Anesthesia: MAC Surgeon: Ryder [place] Pathology: other (Antrum) Condition: stable Disposition: PACU Description of Procedure: The patient placed on the endoscopy table in the lateral position. She received IV sedation. The gastric was placed oropharynx passed in the esophagus and stomach. Scope was in place through the pylorus. The first and second portion duodenum appeared normal. Scope was then brought back to the antrum and this appeared mildly inflamed. The scope was retroflexed and the Mainer of the stomach appeared normal. The GE junction was at 40 cm. The distal esophagus appeared normal. The proximal esophagus provokers scope withdrawn patient. Next digital rectal was performed. There is a large but liquid stool. The flexible colonoscope was then placed patient anus passed with the colon. Scope was placed into the left colon. However due to the poor prep it was decided to stop the procedure. The visualized left colon and sigmoid colon appeared normal. Scope was back the rectum this appeared normal.. However there was very poor prep with large middle liquid stool. The scope was then withdrawn from the patient.
--- NOTE | 2024-06-25 14:17 | P.PN ---
Subjective Progress Note Date: 06/25/24 Principal diagnosis: anemia In f/u today pt is planning for endoscopy today. No reported hematemesis in the last day. Hgb is 7.7, cont to drop since admit, Hgb 9 on admit. No other bleeding to report Objective - Vital Signs Vital signs: Vital Signs Temp 98.3 F 06/25/24 07:15 Pulse 82 06/25/24 07:15 Resp 17 06/25/24 07:15 BP 131/73 06/25/24 07:15 Pulse Ox 97 06/25/24 07:15 FiO2 Intake & Output 06/24/24 06/25/24 06/25/24 18:59 06:59 18:59 Intake Total 180 200 Balance 180 200 Weight 70.1 kg Intake: IV 200 Oral 180 Other: # Voids 2 3 # Bowel Movements 3 - Constitutional General appearance: Present: average body habitus, cooperative, no acute distress - EENT Eyes: Present: anicteric sclerae, EOMI ENT: Present: hearing grossly normal - Respiratory Details: resp even and unlabored at rest - Cardiovascular Details: skin warm, well perfused - Peripheral edema leg Peripheral Edema: bilateral: None - Integumentary Integumentary: Present: normal - Neurologic Neurologic: Present: CNII-XII intact - Musculoskeletal Musculoskeletal: Present: strength equal bilaterally - Psychiatric Psychiatric: Present: A&O x's 3, appropriate affect, intact judgment & insight - Labs CBC & Chem 7: 06/25/24 03:08 06/23/24 07:21 Labs: Abnormal Lab Results - Last 24 Hours (Table) 06/25/24 Range/Units 03:08 WBC 3.7 L (3.8-10.6) k/uL RBC 2.83 L (3.80-5.40) m/uL Hgb 7.7 L (11.4-16.0) gm/dL Hct 25.0 L (34.0-46.0) % MCHC 30.7 L (31.0-37.0) g/dL RDW 16.0 H (11.5-15.5) % Assessment and Plan (1) Hematemesis Current Visit: Yes Status: Acute Priority: High Code(s): K92.0 - HEMATEMESIS SNOMED Code(s): 2094445 (2) Iron deficiency anemia Current Visit: Yes Status: Acute Priority: High Code(s): D50.9 - IRON DEFICIENCY ANEMIA, UNSPECIFIED SNOMED Code(s): 26600705 Plan: Acute anemia 2/2 Hematemesis. 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 She has been monitored in the outpt setting and given iron on several occasions in the last year with significant improvement in her Hgb -Pt has had recent hematemesis, starting about 3-4 weeks ago. Hgb has dropped from normal into the 7 range-Hgb 7.7 today. Pt is mostly asymptomatic, no transfusion at this time. Cont to monitor. Transfuse for a Hgb<7 or if symptomatic -Surgical evaluation, endoscopy today, agree with the same. Pending results -Anemia work up was positive for iron deficiency-IV iron ordered. No hemolysis, B12 or folate deficiencies. -FOBT negative at this time. -PPI ordered
--- NOTE | 2024-06-25 15:31 | P.PN ---
Subjective Progress Note Date: 06/25/24 H&P Date: 06/23/24 Chief Complaint: hematemesis Yvette is a 74-year-old female. 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 She was reportedly found to have a hemoglobin drop from 12-9.0. She was sent to the emergency room for evaluation. She report to Dr. Beaver that she had several episodes of vomiting dark red blood. She does have black stools been has for a long time due to her iron use. Her hemoglobin this morning is now 8.2. She had not denies any further hematemesis. Denies any chest pains pressure shortness of breath. Just some weakness. Progress Note Date: 06/24/24 June 24, 2024: Patient remains stable, she remains on pantoprazole for GERD and GI bleeding. She has not had any more episodes of hematemesis. Surgery has seen and is planning EGD tomorrow. She remains afebrile heart rate is controlled blood pressure is controlled and pulse oximetry is normal on room air. Hemoglobin is pending for this morning it was 8.3 last night, which is stable. Reticulocyte count is elevated 4.2, haptoglobin is normal at 92.7. Iron is low at 12 and TIBC BC is normal at 382 and iron saturation is low at 3.14. 12 and folic acid were also tested normal. Patient is feeling good spirits, does complain with shortness of breath at exertion. Not at rest. She denies any chest pain. She is having little nausea. 06/25/2024 NPO, scheduled for EGD and colonoscopy today. Denies bleeding-denies hemoptysis, hematemesis or rectal bleeding. Hemoglobin continuing to trend down, 7.7., Platelets 294. Denies nausea, vomiting or abdominal pain. denies chest pain, palpitations or shortness of breath. Maintaining O2 sats in the high 90s on room air. IV iron ordered for iron deficiency. Objective - Vital Signs Vital signs: Vital Signs Temp 97.8 F 06/25/24 13:45 Pulse 88 06/25/24 13:45 Resp 18 06/25/24 13:45 BP 138/80 06/25/24 13:45 Pulse Ox 98 06/25/24 13:45 FiO2 Intake & Output 06/24/24 06/25/24 06/25/24 18:59 06:59 18:59 Intake Total 180 200 Balance 180 200 Weight 70.1 kg Intake: IV 200 Oral 180 Other: # Voids 2 3 # Bowel Movements 3 - Exam General: Pale, alert and oriented x 3, sitting up in bed, no acute distress. Neck: supple, no JVD. Cardiovascular: S1S2 is normal, regular rate and rhythm. No murmur, rub or gallop is appreciated. Respiratory: Unlabored, equal air entry, clear to auscultation. Gastrointestinal: Soft, non-distended, nontender ,no masses or organomegaly no arlene. Positive bowel sounds EXTREMITIES: No pedal edema,no calf tenderness or swelling. Neurological: CN II-XII intact, motor and sensory grossly intact. Skin: warm and dry, no rashes noted. - Labs CBC & Chem 7: 06/25/24 03:08 06/23/24 07:21 Labs: Abnormal Lab Results - Last 24 Hours (Table) 06/25/24 Range/Units 03:08 WBC 3.7 L (3.8-10.6) k/uL RBC 2.83 L (3.80-5.40) m/uL Hgb 7.7 L (11.4-16.0) gm/dL Hct 25.0 L (34.0-46.0) % MCHC 30.7 L (31.0-37.0) g/dL RDW 16.0 H (11.5-15.5) % Assessment and Plan Assessment: (1) Symptomatic anemia Current Visit: Yes Status: Acute Code(s): D64.9 - ANEMIA, UNSPECIFIED SNOMED Code(s): 723251353 (2) Hematemesis Current Visit: Yes Status: Acute Code(s): K92.0 - HEMATEMESIS SNOMED Code(s): 9479462 (3) H/O myocardial infarction, greater than 8 weeks Current Visit: Yes Status: Acute Code(s): I25.2 - OLD MYOCARDIAL INFARCTION SNOMED Code(s): 6554993 (4) GERD (gastroesophageal reflux disease) Current Visit: Yes Status: Acute Code(s): K21.9 - GASTRO-ESOPHAGEAL REFLUX DISEASE WITHOUT ESOPHAGITIS SNOMED Code(s): 925689842 (5) Mixed hyperlipidemia Current Visit: Yes Status: Acute Code(s): E78.2 - MIXED HYPERLIPIDEMIA SNOMED Code(s): 152162024 (6) Hypothyroidism Current Visit: No Status: Acute Code(s): E03.9 - HYPOTHYROIDISM, UNSPECIFIED SNOMED Code(s): 25352881 (7) RUQ pain Current Visit: Yes Status: Acute Code(s): R10.11 - RIGHT UPPER QUADRANT PAIN SNOMED Code(s): 204907220 (8) iron deficiency anemia Plan: Continue on current medication regimen ,monitoring and symptomatic treatment. IV iron ordered. NPO, scheduled for both EGD and colonoscopy today. Hematology following with recommendations to transfuse for hemoglobin less than 7 or if symptomatic; currently 7.7/ asymptomatic .close monitoring of hemoglobin, renal function with repeat labs ordered for a.m. The impression and plan of care has been dictated as directed. : I performed a history and examination of this patient, discussed the same with the dictator. I agree with the dictator's note ,documented as a scribe. Any additional findings or plans will be noted.
[2024-06-26 09:09] LABS: Blood Urea Nitrogen 14.4 mg/dL (9.0-27.0); Calcium 8.2 mg/dL (8.7-10.3); Carbon Dioxide 25.6 mmol/L (21.6-31.8); Chloride 108 mmol/L (96-109); Glucose 85 mg/dL (70-110); Potassium 3.9 mmol/L (3.5-5.5); Sodium 142 mmol/L (135-145)
[2024-06-26 10:15] LABS: Basophils # (A) 0.03 X 10*3/uL (0.00-0.10); Basophils % (A) 0.7 %; Eosinophils % (A) 2.5 %; HCT 25.6 % (37.2-46.3); HGB 7.3 g/dL (12.0-15.0); Lymphocytes # (A) 0.88 X 10*3/uL (0.90-5.00); Lymphocytes % (A) 21.9 %; MCH 26.2 pg (27.0-32.0); MCHC 28.5 g/dL (32.0-37.0); MCV 91.8 FL (80.0-97.0); Mean Platelet Volume 10.2 FL (9.5-12.2); Monocytes # (A) 0.44 X 10*3/uL (0.20-1.00); NRBC Per 100 WBC 0 X 10*3/uL (0.00-0.01); Neutrophils # (A) 2.55 X 10*3/uL (1.80-7.70); Neutrophils % (A) 63.7 %; Platelet Count 284 X 10*3/uL (140-440); RBC 2.79 X 10*6/uL (4.10-5.20); RDW 15.8 % (11.5-14.5); WBC 4.01 X 10*3/uL (4.50-10.00)
--- NOTE | 2024-06-26 13:56 | P.PN ---
Subjective Progress Note Date: 06/26/24 SURGICAL PROGRESS NOTE CHIEF COMPLAINT: Anemia HISTORY OF PRESENT ILLNESS: Patient is status post EGD revealing antral gastritis. Colonoscopy aborted due to poor bowel prep. Patient is tolerating diet. Denies any nausea or vomiting. Hemoglobin 7.3. PHYSICAL EXAM: VITAL SIGNS: Reviewed. GENERAL: Well-developed in no acute distress. HEENT: No sclera icterus. Extraocular movements grossly intact. Moist buccal mucosa. Head is atraumatic, normocephalic. ABDOMEN: Soft. Nondistended. Nontender. NEUROLOGIC: Alert and oriented. Cranial nerves II through XII grossly intact. ASSESSMENT: 1. Anemia status post EGD revealing antral gastritis PLAN: -Patient is stable from surgical standpoint for discharge -Continue omeprazole -Patient can follow-up outpatient for colonoscopy Physician Battery Repairer note has been reviewed by physician. Signing provider agrees with the documented findings, assessment, and plan of care. Objective - Vital Signs Vital signs: Vital Signs Temp 97.9 F 06/26/24 07:00 Pulse 77 06/26/24 08:10 Resp 16 06/26/24 08:10 BP 157/71 06/26/24 07:00 Pulse Ox 94 L 06/26/24 07:00 FiO2 Intake & Output 06/25/24 06/26/24 06/26/24 18:59 06:59 18:59 Intake Total 320 240 Balance 320 240 Weight 64.5 kg Intake: IV 200 Oral 120 240 Other: Voiding Method Toilet # Voids 3 # Bowel Movements 1 - Labs CBC & Chem 7: 06/26/24 03:14 06/26/24 03:14 Labs: Abnormal Lab Results - Last 24 Hours (Table) 06/26/24 06/26/24 Range/Units 03:14 03:14 WBC 4.01 L (4.50-10.00) X 10*3/uL RBC 2.79 L (4.10-5.20) X 10*6/uL Hgb 7.3 L (12.0-15.0) g/dL Hct 25.6 L (37.2-46.3) % MCH 26.2 L (27.0-32.0) pg MCHC 28.5 L (32.0-37.0) g/dL RDW 15.8 H (11.5-14.5) % Lymphocytes # 0.88 L (0.90-5.00) X 10*3/uL Est GFR (CKD-EPI) 58 L (>=60) Calcium 8.2 L (8.7-10.3) mg/dL
[2024-06-26 14:24] VITALS: BP 148/81; PULSE 89; RESP 17; TEMP 98.2
[2024-06-26 15:01] LABS: Anisocytosis Slight; HCT 28.6 % (34.0-46.0); HGB 8.5 gm/dL (11.4-16.0); Hypochromasia Marked; MCH 26.5 pg (25.0-35.0); MCHC 29.6 g/dL (31.0-37.0); MCV 89.5 fL (80.0-100.0); Mean Platelet Volume 9.4; Platelet Count 323 k/uL (150-450); Poikilocytosis Moderate; RDW 16.3 % (11.5-15.5); WBC 5.3 k/uL (3.8-10.6)
--- NOTE | 2024-06-26 15:10 | P.DS ---
Providers Date of admission: 06/25/24 13:59 Expected date of discharge: 06/26/24 Attending physician: Altaf Amin Consults: 06/22/24 16:48 Consult Physician Urgent Consulting Provider: Ryder [place] Consult Reason/Comments: acute hematemesis, acute anemia Do you want consulting provider notified?: Already Contacted 06/23/24 09:40 Consult Physician Routine Consulting Provider: Ned Hagen Consult Reason/Comments: anemia Do you want consulting provider notified?: Yes Primary care physician: [facility] Course: Final Diagnosis: (1) Symptomatic anemia. Status post EGD reporting antral gastritis Current Visit: Yes Status: Acute Code(s): D64.9 - ANEMIA, UNSPECIFIED SNOMED Code(s): 844285476 (2) Hematemesis Current Visit: Yes Status: Acute Code(s): K92.0 - HEMATEMESIS SNOMED Code(s): 3839426 (3) H/O myocardial infarction, greater than 8 weeks Current Visit: Yes Status: Acute Code(s): I25.2 - OLD MYOCARDIAL INFARCTION SNOMED Code(s): 8511491 (4) GERD (gastroesophageal reflux disease) Current Visit: Yes Status: Acute Code(s): K21.9 - GASTRO-ESOPHAGEAL REFLUX DISEASE WITHOUT ESOPHAGITIS SNOMED Code(s): 872573708 (5) Mixed hyperlipidemia Current Visit: Yes Status: Acute Code(s): E78.2 - MIXED HYPERLIPIDEMIA SNOMED Code(s): 457305344 (6) Hypothyroidism Current Visit: No Status: Acute Code(s): E03.9 - HYPOTHYROIDISM, UNSPECIFIED SNOMED Code(s): 13958865 (7) RUQ pain Current Visit: Yes Status: Acute Code(s): R10.11 - RIGHT UPPER QUADRANT PAIN SNOMED Code(s): 536543237 (8) iron deficiency anemia Hospital course:Yvette is a 74-year-old female. 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 She was reportedly found to have a hemoglobin drop from 12-9.0. She was sent to the emergency room for evaluation. She report to Dr. Beaver that she had several episodes of vomiting dark red blood. She does have black stools been has for a long time due to her iron use. Her hemoglobin this morning is now 8.2. She had not denies any further hematemesis. Denies any chest pains pressure shortness of breath. Just some weakness. Progress Note Date: 06/24/24 June 24, 2024: Patient remains stable, she remains on pantoprazole for GERD and GI bleeding. She has not had any more episodes of hematemesis. Surgery has seen and is planning EGD tomorrow. She remains afebrile heart rate is controlled blood pressure is controlled and pulse oximetry is normal on room air. Hemoglobin is pending for this morning it was 8.3 last night, which is stable. Reticulocyte count is elevated 4.2, haptoglobin is normal at 92.7. Iron is low at 12 and TIBC BC is normal at 382 and iron saturation is low at 3.14. 12 and folic acid were also tested normal. Patient is feeling good spirits, does complain with shortness of breath at exertion. Not at rest. She denies any chest pain. She is having little nausea. 06/25/2024 NPO, scheduled for EGD and colonoscopy today. Denies bleeding-denies hemoptysis, hematemesis or rectal bleeding. Hemoglobin continuing to trend down, 7.7., Platelets 294. Denies nausea, vomiting or abdominal pain. denies chest pain, palpitations or shortness of breath. Maintaining O2 sats in the high 90s on room air. IV iron ordered for iron deficiency. Colonoscopy aborted secondary to poor prep. EGD reported antral gastritis. Hemoglobin returned at 7.3. Denies abdominal pain denies nausea vomiting or diarrhea. Tolerating diet. Maintained on PPI. Cleared by general surgery for discharge. Receiving IV iron. Dressed and eager for discharge. Patient will be discharged home today in a stable condition with guarded prognosis, pending repeating a stat CBC, potential transfusion of 1 unit pending results. The impression and plan of care has been dictated as directed. : I performed a history and examination of this patient, discussed the same with the dictator. I agree with the dictator's note ,documented as a scribe. Any additional findings or plans will be noted. Patient Condition at Discharge: Stable Plan - Discharge Summary Discharge Rx Participant: No New Discharge Prescriptions: Continue Levothyroxine Sodium [Synthroid] 100 mcg PO DAILY Aspirin 81 mg PO DAILY #0 chew Spironolactone [Aldactone] 25 mg PO DAILY #90 tab carvediloL [Coreg] 3.125 mg PO BID lisinopriL [Zestril] 10 mg PO DAILY buPROPion XL [Wellbutrin XL] 450 mg PO DAILY Vilazodone HCl [Viibryd] 40 mg PO DAILY Nitroglycerin Sl Tabs [Nitrostat] 0.4 mg SL Q5M PRN PRN Reason: Chest Pain Atorvastatin [Lipitor] 80 mg PO DAILY@1500 Ferrous Sulfate [Iron (65 MG Elemental)] 325 mg PO DAILY Omeprazole Magnesium [PriLOSEC OTC] 20 mg PO AC-BRKFST PRN PRN Reason: Heartburn Discharge Medication List Levothyroxine Sodium [Synthroid] 100 mcg PO DAILY 08/18/17 [History] Aspirin 81 mg PO DAILY #0 chew 08/20/17 [Rx] Spironolactone [Aldactone] 25 mg PO DAILY #90 tab 08/20/17 [Rx] Vilazodone HCl [Viibryd] 40 mg PO DAILY 02/04/22 [History] buPROPion XL [Wellbutrin XL] 450 mg PO DAILY 02/04/22 [History] lisinopriL [Zestril] 10 mg PO DAILY 02/04/22 [History] Nitroglycerin Sl Tabs [Nitrostat] 0.4 mg SL Q5M PRN 08/04/22 [History] Atorvastatin [Lipitor] 80 mg PO DAILY@1500 08/06/22 [History] Ferrous Sulfate [Iron (65 MG Elemental)] 325 mg PO DAILY 08/17/23 [History] Omeprazole Magnesium [PriLOSEC OTC] 20 mg PO AC-BRKFST PRN 06/22/24 [History] carvediloL [Coreg] 3.125 mg PO BID 06/22/24 [History] Follow up Appointment(s)/Referral(s): Addison Montgomery [STAFF PHYSICIAN] - 08/23/24 1:30 pm Gabriel Sarabia Jr, DO [Primary Care Provider] - 07/02/24 1:30 pm Ryder [place] MD [STAFF PHYSICIAN] - 1 Week Activity/Diet/Wound Care/Special Instructions: Hold aspirin 81 mg daily x 2 weeks then resume
== END 2024-06-26 16:58 | disposition home or self-care (01) | DRG 811 ==
LOC: EC 13:45 → 3SCARD 16:17 → 4SSUR 06-23 23:57 → OBSVTOIN 06-25 13:59
PROVIDERS: ADMIT Family Medicine; ATTEND Family Medicine
PROC: 0DB78ZX Excision of Stomach, Pylorus, Via Natural or Artificial Opening Endoscopic, Diagnostic (ICD-10-PCS; principal; 2024-06-25 09:35)
DX: D50.9 Iron deficiency anemia, unspecified (principal); K29.51 Unspecified chronic gastritis with bleeding; K55.21 Angiodysplasia of colon with hemorrhage; K92.0 Hematemesis; I10 Essential (primary) hypertension; E03.9 Hypothyroidism, unspecified; I25.10 Atherosclerotic heart disease of native coronary artery without angina pectoris; K21.9 Gastro-esophageal reflux disease without esophagitis; K44.9 Diaphragmatic hernia without obstruction or gangrene; K57.30 Diverticulosis of large intestine without perforation or abscess without bleeding; T39.015A Adverse effect of aspirin, initial encounter; Z53.09 Procedure and treatment not carried out because of other contraindication; E78.2 Mixed hyperlipidemia; Z79.890 Hormone replacement therapy; Z79.899 Other long term (current) drug therapy; Z79.82 Long term (current) use of aspirin; I25.2 Old myocardial infarction; Z95.5 Presence of coronary angioplasty implant and graft; Z87.891 Personal history of nicotine dependence
CPT/HCPCS: 36415; 43239; 45378; 76705; 80048; 80053; 82272; 82607; 82728; 82746; 83010; 83540; 83550; 83605; 83615; 83690; 83735; 84484; 85025; 85027; 85045; 85610; 85730; 86850; 86900; 86901; 88305; 96374; 96375; 99285

== ENCOUNTER → 2024-07-09 | Day surgery (SDC) | payer MEDICARE ==
[2024-07-04 08:54] VITALS: BMI 29.0
[2024-07-09 07:04] VITALS: BP 160/87; PULSE 85; RESP 16; TEMP 98.8
== END ==
LOC: ORWHC2ENDO 06:28
PROVIDERS: ATTEND Internal Medicine Gastroenterology
DX: D50.9 Iron deficiency anemia, unspecified (principal)
CPT/HCPCS: 91110

== ENCOUNTER 2025-01-16 07:13 | Day surgery (SDC) | payer MEDICARE ==
[~2025-01-16 07:13] MED LIST changes: -IOPAMIDOL M200 10 ML VIAL ONE; -LACTATED RINGERS 1,000 ML IV SCH; +LIDOCAINE 1% (10MG/ML) FOR IV START INTRADERMA PRN; -methylPREDNISolone ACETATE 40 MG/ML 1 ML VIAL ONE
[2025-01-16] MEDS: IV FLUID CONTINUATION 1,000 ML IV ONE (07:30)
[2025-01-16 07:33] VITALS: TEMP 97.1
[2025-01-16] MEDS: LACTATED RINGERS 1,000 ML IV SCH (07:42)
[2025-01-16] MEDS ORDERED: PROPOFOL 10 MG/ML 20 ML VIAL IV ONE (08:33)
[2025-01-16] MEDS ORDERED: LIDOCAINE 2% (PF) 20 MG/ML 5 ML VIAL ONE (08:33)
--- NOTE | 2025-01-16 09:00 | P.PCN ---
Date of Procedure: 01/16/25 Procedure(s) Performed: BRIEF HISTORY: Patient is a 74-year-old pleasant white female scheduled for an elective colonoscopy as a part of evaluation iron deficiency anemia. She has was admitted to hospital in August 2022 with a hemoglobin of 5 and had an EGD that revealed large hiatal hernia and attempted colonoscopy by Dr. Costa was incomplete. She was readmitted to hospital a month ago with the same problem and repeat colonoscopy by Dr. Bliss was incomplete. She is hence scheduled for colonoscopy today. PROCEDURE PERFORMED: Colonoscopy. PREOPERATIVE DIAGNOSIS: Iron deficiency anemia. IV sedation per Anesthesia. PROCEDURE: After informed consent was obtained, the patient, was brought into the endoscopy unit. IV sedation was administered by Anesthesia under continuous monitoring. Digital rectal examination was normal. Initially the Olympus CF-160 flexible video pediatric colonoscope was then inserted in the rectum, gradually advanced into the cecum and further advancementwas not possible because of acute angulation in this area. At this upper endoscopy was used and with gentle manipulation and abdominal pressure the scope was gradually advanced into the cecum with mild to moderate difficulty. Careful examination was performed as the scope was gradually being withdrawn. Ileocecal valve and the appendiceal orifice were visualized and appeared normal. Prep was excellent. Mucosa of the cecum, ascending colon, transverse colon, descending colon, sigmoid colon, and rectum appeared normal. Moderate sigmoid diverticulosis seen. Retroflexion was performed in the rectum and no lesions were seen. The patient tolerated the procedure well. IMPRESSION: Normal-appearing colon from rectum to cecum with no evidence of colitis or colorectal neoplasia Scattered sigmoid diverticulosis. RECOMMENDATIONS: Findings of this examination were discussed with the patient as well as her family. She was advised to continue with iron supplements on a regular basis and monitor CBC periodically..
[2025-01-16 09:14] VITALS: PULSE 64
[2025-01-16 09:19] VITALS: BP 136/92; RESP 18
[2025-01-16] MEDS: ONDANSETRON ODT 4 MG TAB PO STA (09:54)
== END 2025-01-16 09:44 | disposition home or self-care (01) ==
LOC: ORWHC2ENDO 07:13
PROVIDERS: ATTEND Internal Medicine Gastroenterology
DX: K57.30 Diverticulosis of large intestine without perforation or abscess without bleeding (principal); D50.9 Iron deficiency anemia, unspecified; I25.2 Old myocardial infarction; I10 Essential (primary) hypertension; E78.5 Hyperlipidemia, unspecified; I25.10 Atherosclerotic heart disease of native coronary artery without angina pectoris; E03.9 Hypothyroidism, unspecified; K21.9 Gastro-esophageal reflux disease without esophagitis; Z79.890 Hormone replacement therapy; Z95.5 Presence of coronary angioplasty implant and graft; Z79.899 Other long term (current) drug therapy
CPT/HCPCS: 45378; J2704; J2003

== ENCOUNTER 2025-02-06 13:58 | Emergency (ER) | payer MEDICARE ==
[2025-02-06 15:52] LABS: Basophils # (A) 0.07 10*3/uL (0.00-0.10); Basophils % (A) 1.1 %; Eosinophils # (A) 0.07 10*3/uL (0.04-0.35); Eosinophils % (A) 1.1 %; HCT 33.8 % (37.2-46.3); HGB 10.6 g/dL (12.0-15.0); Lymphocytes # (A) 1.29 10*3/uL (0.90-5.00); Lymphocytes % (A) 20.9 %; MCH 24.3 pg (27.0-32.0); MCHC 31.4 g/dL (32.0-37.0); MCV 77.3 fL (80.0-97.0); Monocytes # (A) 0.51 10*3/uL (0.20-1.00); Monocytes % (A) 8.3 %; Neutrophils # (A) 4.22 10*3/uL (1.80-7.70); Neutrophils % (A) 68.3 %; Platelet Count 406 10*3/uL (140-440); RBC 4.37 10*6/uL (4.10-5.20); RDW 16.8 % (11.5-14.5); WBC 6.18 10*3/uL (4.50-10.00)
[2025-02-06 16:01] LABS: ALT 21 U/L (4-34); AST 30 U/L (14-36); African American GFR (CKD) 58 (>60 ml/min/1.73 sqM); Albumin 4.6 g/dL (3.5-5.0); Alkaline Phosphatase 120 U/L (38-126); Anion Gap 12 mmol/L; Blood Urea Nitrogen 22 mg/dL (7-17); Calcium 9.6 mg/dL (8.4-10.2); Carbon Dioxide 24 mmol/L (22-30); Chloride 106 mmol/L (98-107); Glucose 89 mg/dL (74-99); Non-African American GFR(CKD) 50 (>60 ml/min/1.73 sqM); Potassium 4.2 mmol/L (3.5-5.1); Sodium 142 mmol/L (137-145); Total Protein 7.2 g/dL (6.3-8.2)
[2025-02-06 16:09] LABS: NT-Pro-B-Type Natriuretic Pept 186 pg/mL
--- NOTE | 2025-02-06 16:24 | XR ---
EXAMINATION TYPE: XR chest 2V DATE OF EXAM: 02/06/2025 4:00 PM COMPARISON: 05/31/2024 CLINICAL INDICATION: Female, 74 years old with history of SOB: Shortness of breath TECHNIQUE: XR chest 2V views of the chest are obtained. FINDINGS: Scattered senescent parenchymal changes noted. Hyperinflation compatible with COPD. No evidence for infiltrate. No evidence for atelectasis. Moderate fixed hiatal hernia. Heart size is stable. Mediastinal structures are stable and grossly unremarkable. No evidence for hilar prominence. Degenerative changes dorsal spine. IMPRESSION: 1. No evidence for acute pulmonary disease. [facility], , 02/06/2025 4:22 PM
[2025-02-06 16:27] LABS: RSV Not Detected (Not Detectd)
[2025-02-06 17:02] LABS: INR 1.0 (<1.2); Partial Thromboplastin Time 21.4 sec (22.0-30.0); Prothrombin Time 10.6 sec (10.0-12.5)
--- NOTE | 2025-02-06 17:38 | ED ---
General Adult HPI - General Chief complaint: Shortness of Breath Stated complaint: ANGEL Time Seen by Provider: 02/06/25 15:30 Source: patient, RN notes reviewed, old records reviewed Mode of arrival: ambulatory Limitations: no limitations - History of Present Illness Initial comments: 74-year-old female presents emergency department complaining of dyspnea. Has been ongoing for multiple weeks to months. Has a history of anemia. Sent in by her informatica Dr. Mcbride for further evaluation and workup for the shortness of breath. Denies any lower extremity swelling. Denies any chest pain. Denies any fevers, chills, cough. States she has had chronic worsening exertional dyspnea. She states she does not want to be here. Has a history of iron deficiency anemia and has required transfusion in the past but denies any acute bleeding at this time. Denies hemoptysis, hematemesis, melena. Is not on blood thinners. Has no acute complaints otherwise. States she is only here because her informatica told her to come be evaluated. No recent long distance travel. No lower extremity swelling or edema. She follows up with manager of radiology Dr. Barrera. Has an echo and cardiology appointment in March of this year. - Related Data Home Medications Medication Instructions Recorded Confirmed Levothyroxine Sodium [Synthroid] 100 mcg PO DAILY 08/18/17 01/16/25 Vilazodone HCl [Viibryd] 40 mg PO DAILY 02/04/22 01/16/25 buPROPion XL [Wellbutrin XL] 450 mg PO DAILY 02/04/22 01/16/25 lisinopriL [Zestril] 10 mg PO DAILY 02/04/22 01/15/25 Nitroglycerin Sl Tabs [Nitrostat] 0.4 mg SL Q5M PRN 08/04/22 01/16/25 Atorvastatin [Lipitor] 80 mg PO DAILY@1500 08/06/22 01/16/25 Omeprazole Magnesium [PriLOSEC OTC] 20 mg PO AC-BRKFST PRN 06/22/24 01/16/25 carvediloL [Coreg] 3.125 mg PO BID 06/22/24 01/16/25 Aspirin 81 mg PO DAILY 01/16/25 01/16/25 Previous Rx's Medication Instructions Recorded Spironolactone [Aldactone] 25 mg PO DAILY #90 tab 08/20/17 Allergies Allergy/AdvReac Type Severity Reaction Status Date / Time No Known Allergies Allergy Verified 02/06/25 14:06 Review of Systems ROS Statement: Those systems with pertinent positive or pertinent negative responses have been documented in the HPI. Review of Systems: CONST: Denies fever EYES: Denies blurry vision ENT: Denies nasal congestion C/V: Denies Chest pain RESP: Endorses mild exertional dyspnea GI: Denies abdominal pain : Denies dysuria SKIN: Denies rash. MSK: Denies joint pain. NEURO: Denies headache ROS Other: All systems not noted in ROS Statement are negative. Past Medical History Past Medical History: Blood Disorder, Coronary Artery Disease (CAD), GERD/Reflux, Hyperlipidemia, Hypertension, Myocardial Infarction (ME), Syncope, Thyroid Disorder Additional Past Medical History / Comment(s): diverticular dx, hemorrhoids, overactive bladder, hypothyroid. Dr Barrera for a heart cath found to have low hemaglobin in Jul 2022-could not do a heartcath at that time-received 2 units during hospital stay-Hgb 5.3-now following with hematology for anemia sep 2024 in [facility] with sepsis, from infected diverticuli Last Myocardial Infarction Date:: 08-18-17 History of Any Multi-Drug Resistant Organisms: None Reported Past Surgical History: Appendectomy, Heart Catheterization With Stent, Hysterectomy, Tonsillectomy Additional Past Surgical History / Comment(s): Multiple bilateral breast benign bxs, colonoscopies/polypectomies, thyroid nodule removed Past Anesthesia/Blood Transfusion Reactions: No Reported Reaction Additional Past Anesthesia/Blood Transfusion Reaction / Comment(s): no issues with blood transfusion Date of Last Stent Placement:: 08-18-17 Past Psychological History: Depression Smoking Status: Former smoker - Past Family History Mother Additional Family Medical History / Comment(s): Depression Father Family Medical History: Coronary Artery Disease (CAD) Sister(s) Family Medical History: Deep Vein Thrombosis (DVT) General Exam - General Exam Comments Initial Comments: General: Appears in no acute distress. No significant dyspnea. No increased work of breathing. HEAD: Normal with no signs of head trauma. EYES: PERRLA, EOMI, conjunctiva normal, no discharge. ENT: Hearing grossly intact, normal oropharynx. RESPIRATORY: Clear breath sounds bilaterally. No wheezes, rales, or rhonchi. No hypoxia. No respiratory distress. C/V: Regular rate and rhythm. S1 and S2 auscultated, no edema, peripheral pulses 2+ and intact throughout ABD: Abd is soft, nontender, nondistended EXT: Normal range of motion, no obvious deformity SKIN: No rashes or lesions observed on exposed skin. NEURO: Alert and orient x 4. Limitations: no limitations Course Vital Signs 02/06/25 02/06/25 14:04 17:54 Temperature 97.5 F L 97.8 F Pulse Rate 77 87 Respiratory 16 17 Rate Blood Pressure 159/86 97/83 O2 Sat by Pulse 97 98 Oximetry Medical Decision Making - Medical Decision Making Was pt. sent in by a medical professional or institution (, PA, SERVICE DISMANTLER, urgent care, hospital, or longterm...) When possible be specific @ -No Did you speak to anyone other than the patient for history (EMS, parent, family, police, friend...)? What history was obtained from this source @ -No Did you review nursing and triage notes (agree or disagree)? Why? @ -I reviewed and agree with nursing and triage notes Were old charts reviewed (outside hosp., previous admission, EMS record, old EKG, old radiological studies, urgent care reports/EKG's, longterm records)? Report findings @ -Reviewed old chart showing patient does have a history of anemia. Most recent hemoglobin from June 2024 shows a hemoglobin of 8.5. Differential Diagnosis (chest pain, altered mental status, abdominal pain women, abdominal pain men, vaginal bleeding, weakness, fever, dyspnea, syncope, headache, dizziness, GI bleed, back pain, seizure, CVA, palpatations, mental health, musculoskeletal)? @ -Differential Dyspnea: Coronary syndrome, arrhythmia, tamponade, asthma, COPD, pulmonary embolism, pneumonia, pneumothorax, pulmonary effusion, anaphylaxis, diabetic ketoacidosis, flailed chest, pulmonary contusion, diaphragmatic rupture, anemia, neuromuscular, this is not meant to be an all-inclusive list. EKG interpreted by me (3pts min.). @ -As above X-rays interpreted by me (1pt min.). @ -Chest x-ray reveals no obvious acute cardiopulmonary process. CT interpreted by me (1pt min.). @ -None done U/S interpreted by me (1pt. min.). @ -None done What testing was considered but not performed or refused? (CT, X-rays, U/S, labs)? Why? @ -None What meds were considered but not given or refused? Why? @ -None Did you discuss the management of the patient with other professionals (professionals i.e. , PA, SERVICE DISMANTLER, lab, RT, psych nurse, addiction social worker, relationship management lead, teacher, inshore undersea warfare officer, nurse outreach case manager)? Give summary @ -No Was smoking cessation discussed for >3mins.? @ -No Was critical care preformed (if so, how long)? @ -No Were there social determinants of health that impacted care today? How? (H omelessness, low income, unemployed, alcoholism, drug addiction, transportation, low edu. Level, literacy, decrease access to med. care, care home, rehab)? @ -No Was there de-escalation of care discussed even if they declined (Discuss DNR or withdrawal of care, Hospice)? DNR status @ -No What co-morbidities impacted this encounter? (DM, HTN, Smoking, COPD, CAD, Cancer, CVA, ARF, Chemo, Hep., AIDS, mental health diagnosis, sleep apnea, morbid obesity)? @ -None Was patient admitted / discharged? Hospital course, mention meds given and route, prescriptions, significant lab abnormalities, going to OR and other pertinent info. @ -Patient presents with weeks to months of exertional dyspnea. History of anemia. Sent by her oncologist for cardiopulmonary workup. We will obtain this. Vitals are within acceptable limits. She is in no acute distress. She was in agreement this plan. Chest x-ray shows no obvious acute cardiopulmonary process. Laboratory study shows a microcytic anemia with hemoglobin of 10.6 which is improved from most recent value which was near 8 in June 2024. D-dimer age-adjusted is within acceptable limits. BNP is within acceptable limits. Troponin is undetectable. The remainder the workup is unremarkable. Ambulatory pulse ox is within normal limits. She does not want to stay. She would like to go home. She has no complaints at this time. I believe this is reasonable. Strict return precautions discussed. She will be discharged home at this time. Recommended she follow-up with her manager of radiology for evaluation and echo. Did discuss that she can be admitted to observation however no significant indication to admit at this time. She would like to follow-up outpatient. She will return if any worsening symptoms. I instructed the patient to follow up with their PCP in the next 1-3 days. I explained that the patient should return to the emergency department if they experience any worsening symptoms. Strict return precautions were discussed with the patient. The patient expressed understanding of these instructions. I answered all questions that the patient had. The patient was discharged home in good condition with their prescriptions and follow up information. Undiagnosed new problem with uncertain prognosis? @ -No Drug Therapy requiring intensive monitoring for toxicity (Heparin, Nitro, Insulin, Cardizem)? @ -No Were any procedures done? @ -No Diagnosis/symptom? @ -Dyspnea Acute, or Chronic, or Acute on Chronic? @ -Chronic Uncomplicated (without systemic symptoms) or Complicated (systemic symptoms)? @ -Uncomplicated Side effects of treatment? @ -No Exacerbation, Progression, or Severe Exacerbation? @ -No Poses a threat to life or bodily function? How? (Chest pain, [place], ME, pneumonia, PE, COPD, DKA, ARF, appy, cholecystitis, CVA, Diverticulitis, Homicidal, Suicidal, threat to staff... and all critical care pts) @ -Unlikely at this time - Lab Data Result diagrams: 02/06/25 15:37 02/06/25 15:37 Lab Results 02/06/25 02/06/25 02/06/25 Range/Units 15:37 15:37 15:37 WBC 6.18 (4.50-10.00) 10*3/uL RBC 4.37 (4.10-5.20) 10*6/uL Hgb 10.6 L (12.0-15.0) g/dL Hct 33.8 L (37.2-46.3) % MCV 77.3 L (80.0-97.0) fL MCH 24.3 L (27.0-32.0) pg MCHC 31.4 L (32.0-37.0) g/dL Plt Count 406 (140-440) 10*3/uL MPV 9.9 (9.5-12.2) fL Immature Gran % (Auto) 0.3 % Neutrophils % 68.3 % Lymphocytes % 20.9 % Monocytes % 8.3 % Eosinophils % 1.1 % Basophils % 1.1 % Immature Gran # 0.02 (0.00-0.04) 10*3/uL Neutrophils # 4.22 (1.80-7.70) 10*3/uL Lymphocytes # 1.29 (0.90-5.00) 10*3/uL Monocytes # 0.51 (0.20-1.00) 10*3/uL Eosinophils # 0.07 (0.04-0.35) 10*3/uL Basophils # 0.07 (0.00-0.10) 10*3/uL PT (10.0-12.5) sec INR (<1.2) APTT (22.0-30.0) sec D-Dimer (<0.60) mg/L FEU Sodium 142 (137-145) mmol/L Potassium 4.2 (3.5-5.1) mmol/L Chloride 106 (98-107) mmol/L Carbon Dioxide 24 (22-30) mmol/L Anion Gap 12 mmol/L BUN 22 H (7-17) mg/dL Creatinine 1.08 H (0.52-1.04) mg/dL Est GFR (CKD-EPI)AfAm 58 (>60 ml/min/1.73 sqM) Est GFR (CKD-EPI)NonAf 50 (>60 ml/min/1.73 sqM) Glucose 89 (74-99) mg/dL Calcium 9.6 (8.4-10.2) mg/dL Total Bilirubin 1.1 (0.2-1.3) mg/dL AST 30 (14-36) U/L ALT 21 (4-34) U/L Alkaline Phosphatase 120 (38-126) U/L Troponin I <0.012 (0.000-0.034) ng/mL NT-Pro-B Natriuret Pep 186 pg/mL Total Protein 7.2 (6.3-8.2) g/dL Albumin 4.6 (3.5-5.0) g/dL TSH 0.837 (0.465-4.680) mIU/L Influenza Type A (PCR) (Not Detectd) Influenza Type B (PCR) (Not Detectd) RSV (PCR) (Not Detectd) SARS-CoV-2 (PCR) (Not Detectd) 02/06/25 02/06/25 Range/Units 15:37 16:30 WBC (4.50-10.00) 10*3/uL RBC (4.10-5.20) 10*6/uL Hgb (12.0-15.0) g/dL Hct (37.2-46.3) % MCV (80.0-97.0) fL MCH (27.0-32.0) pg MCHC (32.0-37.0) g/dL Plt Count (140-440) 10*3/uL MPV (9.5-12.2) fL Immature Gran % (Auto) % Neutrophils % % Lymphocytes % % Monocytes % % Eosinophils % % Basophils % % Immature Gran # (0.00-0.04) 10*3/uL Neutrophils # (1.80-7.70) 10*3/uL Lymphocytes # (0.90-5.00) 10*3/uL Monocytes # (0.20-1.00) 10*3/uL Eosinophils # (0.04-0.35) 10*3/uL Basophils # (0.00-0.10) 10*3/uL PT 10.6 (10.0-12.5) sec INR 1.0 (<1.2) APTT 21.4 L (22.0-30.0) sec D-Dimer 0.58 (<0.60) mg/L FEU Sodium (137-145) mmol/L Potassium (3.5-5.1) mmol/L Chloride (98-107) mmol/L Carbon Dioxide (22-30) mmol/L Anion Gap mmol/L BUN (7-17) mg/dL Creatinine (0.52-1.04) mg/dL Est GFR (CKD-EPI)AfAm (>60 ml/min/1.73 sqM) Est GFR (CKD-EPI)NonAf (>60 ml/min/1.73 sqM) Glucose (74-99) mg/dL Calcium (8.4-10.2) mg/dL Total Bilirubin (0.2-1.3) mg/dL AST (14-36) U/L ALT (4-34) U/L Alkaline Phosphatase (38-126) U/L Troponin I (0.000-0.034) ng/mL NT-Pro-B Natriuret Pep pg/mL Total Protein (6.3-8.2) g/dL Albumin (3.5-5.0) g/dL TSH (0.465-4.680) mIU/L Influenza Type A (PCR) Not Detected (Not Detectd) Influenza Type B (PCR) Not Detected (Not Detectd) RSV (PCR) Not Detected (Not Detectd) SARS-CoV-2 (PCR) Not Detected (Not Detectd) - EKG Data -: EKG Interpreted by Me EKG Comments: 12-lead Electrocardiogram Interpretation Note EKG was reviewed and interpreted by myself. 12-lead ECG performed at 1511 is interpreted by me as revealing normal sinus rhythm at a rate of 72 beats per minute. [place] is normal. OR interval is 156 ms, QRS durations 101 ms, QTc is [address] segment T wave abnormalities present at scene chronic when compared with prior EKGs from May 2024. R wave progression across the precordium was satisfactory. By my interpretation this EKG is non-diagnostic for acute ischemia. Disposition Clinical Impression: Chronic dyspnea Disposition: HOME SELF-CARE Condition: Good Additional Instructions: Workup today for shortness of breath yielded no obvious cause. You are mildly anemic with hemoglobins above 10. Your cardiac workup including troponin, BNP, D-dimer were within acceptable limits. This evaluated you for any signs of acute heart stress and risk for blood clot on your lung. These were unremarkab le test meaning low risk and no concern at this time. I do recommend that you obtain an echo which you already have scheduled in March and follow-up with your manager of radiology just Dr. Barrera. Perhaps attempt to follow-up sooner with Dr. Barrera and move the echo up. Return to the ER for any worsening symptoms. Is patient prescribed a controlled substance at d/c from ED?: No Referrals: Gabriel Sarabia Jr, [Primary Care Provider] - 1-2 days Time of Disposition: 17:30
[2025-02-06 17:56] VITALS: BP 97/83; PULSE 87; RESP 17; TEMP 97.8
== END 2025-02-06 17:56 | disposition home or self-care (01) ==
LOC: EC 13:58
DX: R06.02 Shortness of breath (principal); Z87.891 Personal history of nicotine dependence
CPT/HCPCS: 36415; 71046; 80053; 83880; 84443; 84484; 85025; 85379; 85610; 85730; 87636; 99285